=== PATIENT | female | born 1935 | race Caucasian/White ===

== ENCOUNTER 2017-07-06 09:08 | Emergency (ER) | payer MEDICARE, OTHER ==
--- NOTE | 2017-07-06 09:58 | ERPHSYRPT ---
- History of Present Illness Time Seen by Provider: 07/06/17 09:45 Source: patient, family Exam Limitations: no limitations Patient Subjective Stated Complaint: rash and itching to upper back for one week Triage Nursing Assessment: ambulated to room per self. skin w/d, color normal, resp easy. fine red rash noted to upper back. no open areas Physician History: This is a 81-year-old white female she arrives with complaint of a rash to her neck and upper back mostly on the right side which she states is pruritic and tender symptoms have been going on for a week. The patient's has been placing [id number] hydrocortisone cream and yesterday placed triple antibiotic cream to the area. patient has not had any fevers. Patient is allergic to Benadryl. Past medical history includes arthritis, osteoporosis, GERD. Past surgical history includes appendectomy cholecystectomy Timing/Duration: week(s) (1 week) Severity: moderate Modifying Factors: Improves With: other ( placing triple antibiotic ointment and [id number] hydrocortisone to the area) Associated Symptoms: rash (rash upper back and neck mostly right side for one week), No nausea, No vomiting, No abdominal pain, No shortness of breath, No heartburn, No diaphoresis, No cough, No chills, No chest pain, No fever, No headaches, No loss of appetite, No malaise, No syncope, No seizure, No weakness Allergies/Adverse Reactions: diphenhydramine HCl [From Benadryl] Allergy (Mild, Verified 07/06/17 09:26) Home Medications: Alendronate Sodium 70 mg [Fosamax 70 MG] 70 mg PO WEEKLY 03/08/12 [History ] Aspirin EC 81 mg [Ecotrin 81 mg] 81 mg PO DAILY 03/08/12 [History] Calcium Carbonate/Vitamin D3 [Calcium 600 + Vit D Caplet] 1 tab PO BID 03/08/12 [History] Cholecalciferol (Vitamin D3) [Vitamin D] 1 tab PO BID 12/22/14 [History] Simvastatin 40 mg [Zocor 40 mg] 40 mg PO DAILY 12/22/14 [History] Hx Tetanus, Diphtheria Vaccination/Date Given: No Hx Influenza Vaccination/Date Given: Yes Hx Pneumococcal Vaccination/Date Given: No Immunizations Up to Date: No - Review of Systems Constitutional: No Fever, No Chills Eyes: No Symptoms Ears, Nose, & Throat: No Symptoms Respiratory: No Cough, No Dyspnea Cardiac: No Chest Pain, No Edema, No Syncope Abdominal/Gastrointestinal: No Abdominal Pain, No Nausea, No Vomiting, No Diarrhea Genitourinary Symptoms: No Dysuria Musculoskeletal: No Back Pain, No Neck Pain Skin: Pruritis, Rash, Other (puritic rash upper back and neck mostly right sided times one week) Neurological: No Dizziness, No Focal Weakness, No Sensory Changes Psychological: No Symptoms Endocrine: No Symptoms All Other Systems: Reviewed and Negative - Past Medical History Pertinent Past Medical History: Yes Neurological History: No Pertinent History ENT History: No Pertinent History Cardiac History: No Pertinent History Respiratory History: No Pertinent History Endocrine Medical History: No Pertinent History Musculoskeletal History: Arthritis, Osteoporosis GI Medical History: GERD History: No Pertinent History Psycho-Social History: No Pertinent History Female Reproductive Disorders: No Pertinent History - Past Surgical History Past Surgical History: Yes Neuro Surgical History: No Pertinent History Cardiac: No Pertinent History Respiratory: No Pertinent History Gastrointestinal: Appendectomy, Cholecystectomy Musculoskeletal: No Pertinent History Female Surgical History: Hysterectomy - Social History Smoking Status: Never smoker Exposure to second hand smoke: No Drug Use: none Patient Lives Alone: No - Female History Hx Now: No - Nursing Vital Signs Nursing Vital Signs: Initial Vital Signs Temperature 98 F 07/06/17 09:17 Pulse Rate 97 H 07/06/17 09:17 Respiratory Rate 16 07/06/17 09:17 Blood Pressure 122/82 07/06/17 09:17 O2 Sat by Pulse Oximetry 97 07/06/17 09:17 Pain Scale Pain Intensity 0 - Physical Exam General Appearance: no apparent distress, alert Eye Exam: PERRL/EOMI, eyes nml inspection Ears, Nose, Throat Exam: normal ENT inspection, TMs normal, pharynx normal, moist mucous membranes Neck Exam: normal inspection, non-tender, supple, full range of motion Respiratory Exam: normal breath sounds, lungs clear, No respiratory distress Cardiovascular Exam: regular rate/rhythm, normal heart sounds, normal peripheral pulses Gastrointestinal/Abdomen Exam: soft, normal bowel sounds, No tenderness, No mass Back Exam: normal inspection, normal range of motion, No CVA tenderness, No vertebral tenderness Extremity Exam: normal inspection, normal range of motion, pelvis stable Neurologic Exam: alert, oriented x 3, cooperative, normal mood/affect, nml cerebellar function, nml station & gait, sensation nml, No motor deficits Skin Exam: rash (erythematous rash right side upper thoracic region and neck, erythematous with several areas of increased erythema not hot) SpO2 Interpretation: normal (97%) SpO2: 97 Oxygen Delivery: Room Air - Course Nursing assessment & vital signs reviewed: Yes - Progress Progress: improved Progress Note: 07/06/17 09:56 This is a 81-year-old white female who arrives with complaints of an erythematous rash along her right posterior neck and right upper thoracic region symptoms for one week patient's has been placing hydrocortisone cream to the area as well as Yesterday placed Neosporin ointment to the area. Patient's rash is quite suspicious for shingles. Will go ahead and place patient on acyclovir 800 mg 5 times a day for 7 days. Will write for Atarax 25 mg orally 3 times a day as needed for itching. Patient will need to follow-up with her family physician. - Departure Time of Disposition: 09:58 Departure Disposition: Home Clinical Impression: Rash Herpes zoster Qualifiers: Herpes zoster complications: without complications Qualified Code(s): B02.9 - Zoster without complications Condition: Fair Critical Care Time: No Referrals: YARED JAMES [Primary Care Provider] - Additional Instructions: Return home. Acyclovir 800 mg 5 times a day for 7 days. Atarax 25 mg orally 3 times a day as needed for itching. Follow-up with your family doctor call Saturday for appointment sooner if problems. Return for acute distress or for severe symptoms. Prescriptions: Acyclovir 800 mg [Zovirax 800 mg] 800 mg PO 5XD #35 tablet Hydroxyzine HCl 25 mg [Atarax 25 mg] 25 mg PO TID PRN #20 tablet
[2017-07-06 10:17] VITALS: BP 130/81; PULSE 92; O2SAT 98
== END 2017-07-06 10:17 | disposition home or self-care (01) ==
LOC: ED 09:08
DX: R21 Rash and other nonspecific skin eruption (principal); B02.9 Zoster without complications; Z79.899 Other long term (current) drug therapy
CPT/HCPCS: 99283

== ENCOUNTER 2017-08-24 07:25 | Emergency (ER) | payer MEDICARE, OTHER ==
[2012-03-08 10:59] VITALS: BP 136/78
[2017-08-24] MEDS ORDERED: Hydromorphone 1 mg/ml Ampule IM ONE ×2 (07:52→08:49)
[2017-08-24] MEDS ORDERED: Phenergan 25 MG INJ IM ONE (07:52)
--- NOTE | 2017-08-24 07:57 | ERPHSYRPT ---
- History of Present Illness Time Seen by Provider: 08/24/17 07:42 Source: patient, family () Exam Limitations: no limitations Patient Subjective Stated Complaint: Pt states "My back has been hurting for about 3 days and I just cannot take it anymore. I am on medicine for a urinary thing and I think that is cleared up but it just hurts." Triage Nursing Assessment: Pt alert and oriented X 3, skin pwd. Pt ambulates with a shuffleing gait, able to speak in clear full sentences. Pt moans and grunts when she moves. Physician History: FIVE DAYS AGO PT STARTED WITH DYSURIA AND HAS BEEN TAKING SULFA FOR THE PAST 3 DAYS. FOR THE PAST 2 DAYS PT HAS HAD LOW BACK PAIN RADIATING TO THE LEFT HIP WORSE WITH MOVEMENT AND WITHOUT RECENT INJURY. PT DENIES FEVER, NAUSEA, VOMITING , ABDOMINAL PAIN, NUMBNESS, WEAKNESS. Allergies/Adverse Reactions: diphenhydramine HCl [From Benadryl] Allergy (Mild, Verified 07/06/17 09:26) Home Medications: Alendronate Sodium 70 mg [Fosamax 70 MG] 70 mg PO WEEKLY 03/08/12 [History ] Aspirin EC 81 mg [Ecotrin 81 mg] 81 mg PO DAILY 03/08/12 [History] Calcium Carbonate/Vitamin D3 [Calcium 600 + Vit D Caplet] 1 tab PO BID 03/08/12 [History] Cholecalciferol (Vitamin D3) [Vitamin D] 1 tab PO BID 12/22/14 [History] Simvastatin 40 mg [Zocor 40 mg] 40 mg PO DAILY 12/22/14 [History] Hx Tetanus, Diphtheria Vaccination/Date Given: No Hx Influenza Vaccination/Date Given: Yes Hx Pneumococcal Vaccination/Date Given: Yes Immunizations Up to Date: Yes - Review of Systems Constitutional: No Fever, No Chills Respiratory: No Dyspnea Cardiac: No Chest Pain Abdominal/Gastrointestinal: No Abdominal Pain, No Nausea, No Vomiting Genitourinary Symptoms: Dysuria Musculoskeletal: Back Pain (LOW), Joint Pain (LEFT HIP) Neurological: No Focal Weakness, No Sensory Changes All Other Systems: Reviewed and Negative - Past Medical History Pertinent Past Medical History: Yes Neurological History: No Pertinent History ENT History: No Pertinent History Cardiac History: No Pertinent History Respiratory History: No Pertinent History Endocrine Medical History: No Pertinent History Musculoskeletal History: Arthritis, Osteoporosis GI Medical History: GERD History: No Pertinent History Psycho-Social History: No Pertinent History Female Reproductive Disorders: No Pertinent History - Past Surgical History Past Surgical History: Yes Neuro Surgical History: No Pertinent History Cardiac: No Pertinent History Respiratory: No Pertinent History Gastrointestinal: Appendectomy, Cholecystectomy Musculoskeletal: No Pertinent History Female Surgical History: Hysterectomy - Social History Smoking Status: Never smoker Exposure to second hand smoke: No Drug Use: none Patient Lives Alone: No - Nursing Vital Signs Nursing Vital Signs: Initial Vital Signs Temperature 98.0 F 08/24/17 07:28 Pulse Rate 94 H 08/24/17 07:28 Respiratory Rate 18 08/24/17 07:28 Blood Pressure 163/104 08/24/17 07:28 O2 Sat by Pulse Oximetry 95 08/24/17 07:28 Pain Scale Pain Intensity [Lower Back] 9 Pain Intensity 4 - Physical Exam General Appearance: alert Eye Exam: PERRL/EOMI Ears, Nose, Throat Exam: TMs normal, pharynx normal, moist mucous membranes Neck Exam: normal inspection Respiratory Exam: lungs clear Cardiovascular Exam: normal heart sounds Gastrointestinal/Abdomen Exam: soft, normal bowel sounds Back Exam: decreased range of motion, No vertebral tenderness Extremity Exam: normal inspection, normal range of motion, No pedal edema Neurologic Exam: alert, cooperative, sensation nml, No motor deficits, No motor weakness Skin Exam: warm, dry SpO2 Interpretation: normal SpO2: 95 Oxygen Delivery: Room Air - Course Nursing assessment & vital signs reviewed: Yes - Radiology Exams Left Femur X-ray Interpretation: Teleradiologist Report, No Fracture Pelvis X-ray Interpretation: Teleradiologist Report, No Fracture L-Spine X-ray Interpretation: Teleradiologist Report (NO ACUTE LUMBAR FX) Ordered Tests: Active Orders 24 hr Category Date Time Status FEMUR Stat Exams 08/24/17 07:57 Taken LUMBAR COMPLETE (MIN 4 VIEWS) Stat Exams 08/24/17 07:53 Taken PELVIS (1 OR 2 VIEWS) Stat Exams 08/24/17 07:57 Taken CULTURE,URINE Stat Lab 08/24/17 09:00 Received UA W/ MICROSCOPIC Stat Lab 08/24/17 09:00 Completed Medication Summary Generic Name Dose Route Start Last Admin Trade Name Freq PRN Reason Stop Dose Admin Ciprofloxacin 500 mg 08/24/17 10:00 Cipro 500 Mg PO 09/23/17 09:59 BID CARLEY Discontinued Medications Generic Name Dose Route Start Last Admin Trade Name Eliseo PRN Reason Stop Dose Admin Hydrocodone Bitart/Acetaminophen 2 tab 08/24/17 09:56 [place] 5/325 Mg PO 08/24/17 09:57 SENT HOME W/ PATIENT ONE Hydromorphone HCl 1 mg 08/24/17 07:52 08/24/17 08:00 Hydromorphone 1 Mg/Ml Ampule IM 08/24/17 07:53 1 mg STAT ONE Administration Hydromorphone HCl Confirm 08/24/17 07:58 Dilaudid 2 Mg Injection Administered 08/24/17 07:59 Dose 2 mg .ROUTE .STK-MED ONE Hydromorphone HCl 1 mg 08/24/17 08:49 08/24/17 09:02 Hydromorphone 1 Mg/Ml Ampule IM 08/24/17 08:50 1 mg STAT ONE Administration Hydromorphone HCl Confirm 08/24/17 08:58 Dilaudid 2 Mg Injection Administered 08/24/17 08:59 Dose 2 mg .ROUTE .STK-MED ONE Promethazine HCl 25 mg 08/24/17 07:52 08/24/17 08:00 Phenergan 25 Mg Inj IM 08/24/17 07:53 25 mg STAT ONE Administration Promethazine HCl Confirm 08/24/17 07:58 Phenergan 25 Mg Inj Administered 08/24/17 07:59 Dose 25 mg .ROUTE .STK-MED ONE Lab/Rad Data: Laboratory Results 08/24/17 Range/Units 09:00 Ur Collection Type CLEAN CATCH Urine Color YELLOW (YELLOW) Urine Appearance HAZY (CLEAR) Urine pH 6.0 (5-6) Ur Specific [place] 1.015 (1.005-1.025) Urine Protein NEGATIVE (Negative) Urine Ketones NEGATIVE (NEGATIVE) Urine Blood NEGATIVE (0-5) [place]/ul Urine Nitrite POSITIVE (NEGATIVE) Urine Bilirubin NEGATIVE (NEGATIVE) Urine Urobilinogen NORMAL (0-1) mg/dL Ur Leukocyte Esterase 2+ (NEGATIVE) Urine Microscopic WBC 5-10 (0-5) /HPF Ur Epithelial Cells FEW (FEW) /HPF Urine Bacteria MANY (NEGATIVE) /HPF Urine Mucus SLIGHT (NEGATIVE) /HPF Urine Culture Reflexed YES (NO) Urine Glucose NEGATIVE (NEGATIVE) mg/dL Specimen Received 08-24-17 0900 - Departure Time of Disposition: 10:03 Departure Disposition: Home Clinical Impression: SCIATICA OF LEFT SIDE, UTI Condition: Stable Critical Care Time: No Referrals: YARED JAMES [Primary Care Provider] - Instructions: Sciatica (DC), Urinary Tract Infections in Adults Additional Instructions: FOLLOW UP WITH PRIVATE DOCTOR TOMORROW. STOP SULFA. Prescriptions: Ciprofloxacin [Cipro 500 MG] 500 mg PO BID #20 tablet
[2017-08-24] MEDS ORDERED: DILAUDID 2 MG INJECTION ONE ×2 (07:58→08:58)
[2017-08-24] MEDS ORDERED: Phenergan 25 MG INJ ONE (07:58)
[2017-08-24 09:20] LABS: Appearance HAZY (CLEAR); Bilirubin NEGATIVE (NEGATIVE); Blood NEGATIVE Ery/ul (0-5); Glucose NEGATIVE (NEGATIVE); Ketones NEGATIVE (NEGATIVE); Leukocyte Esterase 2+ (NEGATIVE); Nitrite POSITIVE (NEGATIVE); Protein,Urine Dip NEGATIVE (Negative); Specific Gravity 1.015 (1.005-1.025); Urobilinogen NORMAL mg/dL (0-1)
[2017-08-24 09:24] LABS: Bacteria MANY /HPF (NEGATIVE); Epithelial Cells FEW /HPF (FEW); Mucus SLIGHT /HPF (NEGATIVE)
[2017-08-24] MEDS ORDERED: NORCO 5/325 MG PO ONE (09:56)
[2017-08-24] MEDS ORDERED: Cipro 500 MG PO SCH (10:00)
[2017-08-24] MEDS ORDERED: NORCO 5/325 MG ONE (10:01)
[2017-08-24] MEDS ORDERED: Cipro 500 MG ONE (10:01)
[2017-08-24 10:20] VITALS: BP 128/70; PULSE 82; O2SAT 98
--- NOTE | 2017-08-24 10:29 | XRAY ---
Indication: Pain 6 days. No known injury. Comparison: April 09, 2008. 5 views of the lumbar spine again demonstrates osteopenia and minimal L5-S1 disc space narrowing with interval worsening bilateral L4-S1 degenerative facet arthropathy. New 10 mm L5 anterolisthesis on S1 and interval T8/T9 kyphoplasty. New superior T12 endplate deformity with less than 20% height loss of uncertain chronicity. Again mild degenerative changes of both hips. Progressive worsening moderate aortoiliac calcifications. Mild scattered colonic fecal debris and previous cholecystectomy. Impression: 1. 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 2. Progressive worsening L4-S1 degenerative facet arthropathy with new grade 1-2 L5 spondylolisthesis. 3. Interval T8/T9 kyphoplasty. 4. Stable osteopenia and L5-S1 disc space narrowing. Comment: Preliminary interpretation was made by [facility]. No critical discrepancy.
--- NOTE | 2017-08-24 10:33 | XRAY ---
Indication: Pain 6 days. No known injury. Comparison: May 31, 2015. Single AP pelvis again demonstrates osteopenia, left pelvic surgical clip, and degenerative changes of both hips and visualized lower lumbar spine. New left gluteal calcified injection granuloma. No acute findings. Comment: Preliminary interpretation was made by [facility]. No discrepancy.
--- NOTE | 2017-08-24 10:35 | XRAY ---
Indication: Pain. No known injury. Comparison: None 2 views of the left femur demonstrates mild osteopenia and degenerative changes of the knee, both hips, and visualized lower lumbar spine. No other bony, articular, or soft tissue abnormalities. Comment: Preliminary interpretation was made by [facility]. No discrepancy.
== END 2017-08-24 10:20 | disposition home or self-care (01) ==
LOC: ED 07:25
DX: M54.42 Lumbago with sciatica, left side (principal); N39.0 Urinary tract infection, site not specified
CPT/HCPCS: 72110; 72170; 73552; 81000; 87077; 87086; 87186; 96372; 99283; J1170; J2550; A9270-GY

== ENCOUNTER 2017-08-25 07:11 | Emergency (ER) | payer MEDICARE, OTHER ==
[2012-03-08 10:59] VITALS: BP 136/78
[2017-08-25 07:28] VITALS: BP 163/90; PULSE 105; O2SAT 95
--- NOTE | 2017-08-25 07:34 | ERPHSYRPT ---
- History of Present Illness Time Seen by Provider: 08/25/17 07:34 Source: patient Patient Subjective Stated Complaint: pt reports back pain radiating to legs- tingling bilateral legs-denies injury Triage Nursing Assessment: pt presents to ed pink warm and bzh-[id number] bruising or contusions noted-pt able to bear wt-grimacing and distress with positioning-resp easy and nonlabored Physician History: 81-year-old female came to the emergency room with complaining of lower back pain radiating to the both lower legs with tingling and numbness in the both lower extremities. Patient was seen in the emergency room yesterday. X-rays were done beech reviewed by radiologist as negative. Patient states that injections did help her and she was given 2 [place], which she to contact every 6 hours, which helped worse till 5:00 today morning, but then her pain came back. Quality: sharp Back Pain Location: lumbar spine Back Pain Radiation: lower legs Severity of Pain-Max: moderate Severity of Pain-Current: severe Modifying Factors: Improves With: pain medication Associated Symptoms: tingling in legs/feet Allergies/Adverse Reactions: diphenhydramine HCl [From Benadryl] Allergy (Mild, Verified 08/25/17 07:28) Home Medications: Alendronate Sodium 70 mg [Fosamax 70 MG] 70 mg PO WEEKLY 03/08/12 [History ] Aspirin EC 81 mg [Ecotrin 81 mg] 81 mg PO DAILY 03/08/12 [History] Calcium Carbonate/Vitamin D3 [Calcium 600 + Vit D Caplet] 1 tab PO BID 03/08/12 [History] Cholecalciferol (Vitamin D3) [Vitamin D] 1 tab PO BID 12/22/14 [History] Simvastatin 40 mg [Zocor 40 mg] 40 mg PO DAILY 12/22/14 [History] Hx Tetanus, Diphtheria Vaccination/Date Given: No Hx Influenza Vaccination/Date Given: Yes Hx Pneumococcal Vaccination/Date Given: Yes Immunizations Up to Date: Yes - Review of Systems Constitutional: No Fever, No Chills Eyes: No Symptoms Ears, Nose, & Throat: No Symptoms Respiratory: No Cough, No Dyspnea Cardiac: No Chest Pain, No Edema, No Syncope Abdominal/Gastrointestinal: No Abdominal Pain, No Nausea, No Vomiting, No Diarrhea Genitourinary Symptoms: No Dysuria Musculoskeletal: Back Pain, No Neck Pain Skin: No Rash Neurological: No Dizziness, No Focal Weakness, No Sensory Changes Psychological: No Symptoms Endocrine: No Symptoms All Other Systems: Reviewed and Negative - Past Medical History Pertinent Past Medical History: Yes Neurological History: No Pertinent History ENT History: No Pertinent History Cardiac History: No Pertinent History Respiratory History: No Pertinent History Endocrine Medical History: No Pertinent History Musculoskeletal History: Arthritis, Osteoporosis GI Medical History: GERD History: No Pertinent History Psycho-Social History: No Pertinent History Female Reproductive Disorders: No Pertinent History - Past Surgical History Past Surgical History: Yes Neuro Surgical History: No Pertinent History Cardiac: No Pertinent History Respiratory: No Pertinent History Gastrointestinal: Appendectomy, Cholecystectomy Musculoskeletal: No Pertinent History Female Surgical History: Hysterectomy - Social History Smoking Status: Never smoker Exposure to second hand smoke: No Drug Use: none Patient Lives Alone: No - Female History Hx Now: No - Nursing Vital Signs Nursing Vital Signs: Initial Vital Signs Temperature 98.0 F 08/25/17 07:23 Pulse Rate 105 H 08/25/17 07:23 Respiratory Rate 18 08/25/17 07:23 Blood Pressure 163/90 08/25/17 07:23 O2 Sat by Pulse Oximetry 95 08/25/17 07:23 Pain Scale Pain Intensity 9 - Physical Exam General Appearance: no apparent distress, alert Eye Exam: PERRL/EOMI, eyes nml inspection Neck Exam: normal inspection, non-tender, supple, full range of motion, No meningismus, No midline tenderness Respiratory Exam: normal breath sounds, lungs clear, No respiratory distress Cardiovascular Exam: regular rate/rhythm, normal heart sounds Gastrointestinal Exam: soft, No tenderness, No mass Extremity Exam: normal inspection, normal range of motion, No calf tenderness, No pedal edema Neurologic Exam: alert, oriented x 3, cooperative, corporate job titles II-XII nml as tested, normal mood/affect, nml cerebellar function, sensation nml, No motor deficits, No sensory deficit Skin Exam: normal color, warm, dry, No rash SpO2: 95 Oxygen Delivery: Room Air - Course Nursing assessment & vital signs reviewed: Yes - Progress Progress: improved, pain not gone completely Counseled pt/family regarding: diagnosis, need for follow-up - Departure Time of Disposition: 07:46 Departure Disposition: Home Clinical Impression: Sciatica neuralgia Qualifiers: Laterality: bilateral Qualified Code(s): M54.31 - Sciatica, right side; M54.32 - Sciatica, left side; M54.32 - Sciatica, left side Condition: Stable Critical Care Time: No Referrals: YARED JAMES [Primary Care Provider] - Instructions: Sciatica (DC), Low Back Pain (DC) Additional Instructions: BACK INJURY 1. May apply moist heat frequently for relief of pain. Take care not to burn the skin. Do not use heat for more than 30 minutes at a time. 2. Try to sleep on a firm bed, flat on your back. 3. If no improvement is noticed in 2-3 days, follow up with your family physician. 4. If you notice any numbness, tingling, weakness, or problems with your bowel or bladder, you should call your family physician or return to the emergency department. Prescriptions: Indomethacin 25 mg [Indocin 25 MG] 25 mg PO TID #15 capsule Hydrocodone Bit/Acetaminophen [[place] 5-325 Tablet] 1 each PO Q6H PRN PRN #15 tablet MDD 4 PRN Reason: Pain
[2017-08-25] MEDS ORDERED: Norflex 60 MG/2 ML IM ONE (07:51)
[2017-08-25] MEDS ORDERED: TORAdol 30 mg Injection IM ONE (07:51)
[2017-08-25] MEDS ORDERED: TORAdol 30 mg Injection ONE (07:54)
[2017-08-25] MEDS ORDERED: Norflex 60 MG/2 ML ONE (07:55)
== END 2017-08-25 08:28 | disposition home or self-care (01) ==
LOC: ED 07:11
DX: M54.42 Lumbago with sciatica, left side (principal); M54.41 Lumbago with sciatica, right side; Z79.899 Other long term (current) drug therapy; Z79.82 Long term (current) use of aspirin
CPT/HCPCS: 96372; 99284; J1885; J2360

== ENCOUNTER 2017-08-25 21:43 | Observation (INO) | payer MEDICARE, OTHER ==
[2017-08-25] MEDS ORDERED: Sodium Chloride 0.9% 1000 ML 1,000 ML IV STA (21:58)
[2017-08-25] MEDS ORDERED: Phenergan 25 MG INJ IV ONE (21:58)
[2017-08-25] MEDS ORDERED: Hydromorphone 1 mg/ml Ampule IV ONE (21:58)
--- NOTE | 2017-08-25 22:06 | ERPHSYRPT ---
- History of Present Illness Time Seen by Provider: 08/25/17 21:50 Source: patient Exam Limitations: no limitations Physician History: FOR THE PAST 5 DAYS PT HAS HAD SEVERE LOW BACK PAIN TODAY RADIATING TO BOTH FEET WITH VOMITING X2 WITHOUT BLOOD. LAST BM WAS 2 DAYS AGO. PT DENIES CHEST PAIN, ABDOMINAL PAIN, FEVER. PT CAME TO [facility] YESTERDAY FOR THE LOW BACK PAIN , WAS GIVEN IM PAIN MEDICATION, DIAGNOSED WITH A UTI AND RX'ED CIPRO. PT RETURNED TO [facility] THIS MORNING AND WAS GIVEN AN RX FOR NORCO. Allergies/Adverse Reactions: diphenhydramine HCl [From Benadryl] Allergy (Mild, Verified 08/25/17 07:28) Home Medications: Alendronate Sodium 70 mg [Fosamax 70 MG] 70 mg PO WEEKLY 03/08/12 [History ] Aspirin EC 81 mg [Ecotrin 81 mg] 81 mg PO DAILY 03/08/12 [History] Calcium Carbonate/Vitamin D3 [Calcium 600 + Vit D Caplet] 1 tab PO BID 03/08/12 [History] Cholecalciferol (Vitamin D3) [Vitamin D] 1 tab PO BID 12/22/14 [History] Simvastatin 40 mg [Zocor 40 mg] 40 mg PO DAILY 12/22/14 [History] Hx Tetanus, Diphtheria Vaccination/Date Given: No Hx Influenza Vaccination/Date Given: Yes Hx Pneumococcal Vaccination/Date Given: Yes - Review of Systems Abdominal/Gastrointestinal: Vomiting Musculoskeletal: Back Pain (LOW) All Other Systems: Reviewed and Negative - Past Medical History Pertinent Past Medical History: Yes Neurological History: No Pertinent History ENT History: No Pertinent History Cardiac History: No Pertinent History Respiratory History: No Pertinent History Endocrine Medical History: No Pertinent History Musculoskeletal History: Arthritis, Osteoporosis GI Medical History: GERD History: No Pertinent History Psycho-Social History: No Pertinent History Female Reproductive Disorders: No Pertinent History - Past Surgical History Past Surgical History: Yes Neuro Surgical History: No Pertinent History Cardiac: No Pertinent History Respiratory: No Pertinent History Gastrointestinal: Appendectomy, Cholecystectomy Musculoskeletal: No Pertinent History Female Surgical History: Hysterectomy - Social History Smoking Status: Never smoker Exposure to second hand smoke: No Drug Use: none Patient Lives Alone: No - Nursing Vital Signs Nursing Vital Signs: Initial Vital Signs Temperature 99.2 F 04/01/18 21:50 Pulse Rate 97 H 08/25/17 21:50 Blood Pressure 152/116 08/25/17 21:50 O2 Sat by Pulse Oximetry 97 08/25/17 21:50 Pain Scale Pain Intensity [] 10 Pain Intensity 0 - Physical Exam General Appearance: alert Eye Exam: PERRL/EOMI Ears, Nose, Throat Exam: TMs normal, pharynx normal, moist mucous membranes Neck Exam: normal inspection Respiratory Exam: lungs clear Cardiovascular Exam: normal heart sounds Gastrointestinal/Abdomen Exam: soft, normal bowel sounds Back Exam: decreased range of motion, No vertebral tenderness Extremity Exam: normal inspection, normal range of motion, No pedal edema Neurologic Exam: alert, cooperative, sensation nml, No motor deficits, No motor weakness Skin Exam: warm, dry - Course Nursing assessment & vital signs reviewed: Yes - CT Exams Lumbar Spine CT Interpretation: Tele-radiologist Report (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 AGE- INDETERMINATE T12 MILD INSUFFICIENCY FRACTURE.) Ordered Tests: Active Orders 24 hr Category Date Time Status IV Insertion STAT Care 08/25/17 21:58 Active Oxygen-ED Only NASAL CANNULA 4 lpm Care 08/25/17 22:42 Active LUMBAR SPINE W/O [CT] Stat Exams 08/25/17 21:57 Taken AMYLASE Stat Lab 08/25/17 22:15 Completed CBC W DIFF Stat Lab 08/25/17 22:15 Completed CMP Stat Lab 08/25/17 22:15 Completed CULTURE,URINE Stat Lab 08/25/17 22:25 Received LIPASE Stat Lab 08/25/17 22:15 Completed MAG [MAGNESIUM] Stat Lab 08/25/17 22:15 Completed UA W/ MICROSCOPIC Stat Lab 08/25/17 22:25 Completed Medication Summary Discontinued Medications Generic Name Dose Route Start Last Admin Trade Name Freq PRN Reason Stop Dose Admin Hydromorphone HCl 1 mg 08/25/17 21:58 08/25/17 22:31 Hydromorphone 1 Mg/Ml Ampule IV 08/25/17 21:59 1 mg STAT ONE Administration Hydromorphone HCl Confirm 08/25/17 22:16 Dilaudid 2 Mg Injection Administered 08/25/17 22:17 Dose 2 mg .ROUTE .STK-MED ONE Hydromorphone HCl 1 mg 08/26/17 00:05 04/02/18 00:21 Hydromorphone 1 Mg/Ml Ampule IV 08/26/17 00:06 1 mg STAT ONE Administration Hydromorphone HCl Confirm 08/26/17 00:19 Dilaudid 2 Mg Injection Administered 08/26/17 00:20 Dose 2 mg .ROUTE .STK-MED ONE Sodium Chloride 1,000 mls @ 999 mls/hr 08/25/17 21:58 08/25/17 22:32 Sodium Chloride 0.9% 1000 Ml IV 08/25/17 22:58 999 mls/hr .Q1H1M STA Administration Sodium Chloride Confirm 08/25/17 22:16 Sodium Chloride 0.9% 1000 Ml Administered 08/25/17 22:17 Dose 1,000 mls @ ud .ROUTE .STK-MED ONE Promethazine HCl 12.5 mg 08/25/17 21:58 08/25/17 22:31 Phenergan 25 Mg Inj IV 08/25/17 21:59 12.5 mg STAT ONE Administration Promethazine HCl Confirm 08/25/17 22:15 Phenergan 25 Mg Inj Administered 08/25/17 22:16 Dose 25 mg .ROUTE .STK-MED ONE Lab/Rad Data: Laboratory Result Diagrams 08/25/17 22:15 08/25/17 22:15 Laboratory Results 08/25/17 08/25/17 08/25/17 Range/Units 22:25 22:15 22:15 WBC (4.0-10.5) K/mm3 RBC (4.1-5.4) M/mm3 Hgb (12.0-16.0) gm/dl Hct (35-47) % MCV (78-100) fl MCH (26-32) pg MCHC (32-36) g/dl RDW (11.5-14.0) % Plt Count (150-450) K/mm3 MPV (6-9.5) fl Gran % (36.0-66.0) % Eos # (Auto) (0-0.5) Absolute Lymphs (auto) (1.0-4.6) Absolute Monos (auto) (0.0-1.3) Lymphocytes % (24.0-44.0) % Monocytes % (0.0-12.0) % Eosinophils % (0.00-5.0) % Basophils % (0.0-0.4) % Absolute Granulocytes (1.4-6.9) Basophils # (0-0.4) Sodium 132 L (137-145) mmol/L Potassium 4.0 (3.5-5.1) mmol/L Chloride 96 L (98-107) mmol/L Carbon Dioxide 27 (22-30) mmol/L Anion Gap 13.2 (5-15) MEQ/L BUN 16 (7-17) mg/dL Creatinine 0.83 (0.52-1.04) mg/dL Estimated GFR > 60 ML/MIN Glucose 139 H (74-106) mg/dL Calcium 9.9 (8.4-10.2) mg/dL Magnesium 1.8 (1.6-2.3) mg/dL Total Bilirubin 1.20 (0.2-1.3) mg/dL AST 25 (14-36) U/L ALT 14 (0-35) U/L Alkaline Phosphatase 68 (38-126) U/L Serum Total Protein 7.5 (6.3-8.2) g/dL Albumin 4.2 (3.5-5.0) g/dL Amylase 139 H (30-110) U/L Lipase 84 (23-300) U/L Ur Collection Type CATH Urine Color YELLOW (YELLOW) Urine Appearance CLEAR (CLEAR) Urine pH 6.0 (5-6) Ur Specific [place] 1.015 (1.005-1.025) Urine Protein NEGATIVE (Negative) Urine Ketones SMALL (NEGATIVE) Urine Blood 250 (0-5) [place]/ul Urine Nitrite NEGATIVE (NEGATIVE) Urine Bilirubin NEGATIVE (NEGATIVE) Urine Urobilinogen NORMAL (0-1) mg/dL Ur Leukocyte Esterase 1+ (NEGATIVE) Urine Microscopic RBC 10-15 (0-2) /HPF Urine Microscopic WBC 25-50 (0-5) /HPF Ur Epithelial Cells FEW (FEW) /HPF Urine Bacteria FEW (NEGATIVE) /HPF Urine Culture Reflexed YES (NO) Urine Glucose NEGATIVE (NEGATIVE) mg/dL Specimen Received 08/25/17 2225 08/25/17 Range/Units 22:15 WBC 10.9 H (4.0-10.5) K/mm3 RBC 4.56 (4.1-5.4) M/mm3 Hgb 14.2 (12.0-16.0) gm/dl Hct 41.4 (35-47) % MCV 90.8 (78-100) fl MCH 31.1 (26-32) pg MCHC 34.3 (32-36) g/dl RDW 12.7 (11.5-14.0) % Plt Count 241 (150-450) K/mm3 MPV 10.9 H (6-9.5) fl Gran % 83.3 H (36.0-66.0) % Eos # (Auto) 0.03 (0-0.5) Absolute Lymphs (auto) 0.84 L (1.0-4.6) Absolute Monos (auto) 0.94 (0.0-1.3) Lymphocytes % 7.7 L (24.0-44.0) % Monocytes % 8.6 (0.0-12.0) % Eosinophils % 0.3 (0.00-5.0) % Basophils % 0.1 (0.0-0.4) % Absolute Granulocytes 9.11 H (1.4-6.9) Basophils # 0.01 (0-0.4) Sodium (137-145) mmol/L Potassium (3.5-5.1) mmol/L Chloride (98-107) mmol/L Carbon Dioxide (22-30) mmol/L Anion Gap (5-15) MEQ/L BUN (7-17) mg/dL Creatinine (0.52-1.04) mg/dL Estimated GFR ML/MIN Glucose (74-106) mg/dL Calcium (8.4-10.2) mg/dL Magnesium (1.6-2.3) mg/dL Total Bilirubin (0.2-1.3) mg/dL AST (14-36) U/L ALT (0-35) U/L Alkaline Phosphatase (38-126) U/L Serum Total Protein (6.3-8.2) g/dL Albumin (3.5-5.0) g/dL Amylase (30-110) U/L Lipase (23-300) U/L Ur Collection Type Urine Color (YELLOW) Urine Appearance (CLEAR) Urine pH (5-6) Ur Specific [place] (1.005-1.025) Urine Protein (Negative) Urine Ketones (NEGATIVE) Urine Blood (0-5) [place]/ul Urine Nitrite (NEGATIVE) Urine Bilirubin (NEGATIVE) Urine Urobilinogen (0-1) mg/dL Ur Leukocyte Esterase (NEGATIVE) Urine Microscopic RBC (0-2) /HPF Urine Microscopic WBC (0-5) /HPF Ur Epithelial Cells (FEW) /HPF Urine Bacteria (NEGATIVE) /HPF Urine Culture Reflexed (NO) Urine Glucose (NEGATIVE) mg/dL Specimen Received - Progress Discussed with : Jason (OBS - [id number]) - Departure Time of Disposition: 00:26 Departure Disposition: Observation Clinical Impression: LOW BACK PAIN, UTI, ARTHRITIS, OSTEOPOROSIS, GERD Condition: Stable Critical Care Time: No Referrals: YARED JAMES [Primary Care Provider] -
[2017-08-25] MEDS ORDERED: Phenergan 25 MG INJ ONE (22:15)
[2017-08-25] MEDS ORDERED: DILAUDID 2 MG INJECTION ONE (22:16)
[2017-08-25] MEDS ORDERED: Sodium Chloride 0.9% 1000 ML 1,000 ML ONE (22:16)
[2017-08-25 22:32] LABS: BASOPHIL % 0.1 % (0.0-0.4); Basophil (Absolute #) 0.01 (0-0.4); Eosinophil % 0.3 % (0.00-5.0); Eosinophil (Absolute #) 0.03 (0-0.5); Granulocyte Absolute (ANC) 9.11 (1.4-6.9); Granulocytes % 83.3 % (36.0-66.0); Hematocrit 41.4 % (35-47); Hemoglobin 14.2 gm/dl (12.0-16.0); Lymphocyte (Absolute #) 0.84 (1.0-4.6); Lymphocytes % 7.7 % (24.0-44.0); Mean Cell Volume 90.8 fl (78-100); Mean Corpuscular Hemoglobin 31.1 pg (26-32); Mean Corpuscular Hgb Concent. 34.3 g/dl (32-36); Mean Platelet Volume 10.9 fl (6-9.5); Monocyte (Absolute #) 0.94 (0.0-1.3); Monocytes % 8.6 % (0.0-12.0); Platelet Count 241 K/mm3 (150-450); Red Blood Count 4.56 M/mm3 (4.1-5.4); Red Cell Distribution Width 12.7 % (11.5-14.0); White Blood Count 10.9 K/mm3 (4.0-10.5)
[2017-08-25 22:51] LABS: ALBUMIN 4.2 g/dL (3.5-5.0); ALKALINE PHOSPHATASE 68 U/L (38-126); AMYLASE 139 U/L (30-110); ANION GAP 13.2 MEQ/L (5-15); BLOOD UREA NITROGEN 16 mg/dL (7-17); CHLORIDE 96 mmol/L (98-107); Calcium 9.9 mg/dL (8.4-10.2); Carbon Dioxide 27 mmol/L (22-30); Creatinine 1 0.83 mg/dL (0.52-1.04); Glucose 139 mg/dL (74-106); LIPASE 84 U/L (23-300); SGOT/AST 25 U/L (14-36); SGPT/ALT 14 U/L (0-35); SODIUM 132 mmol/L (137-145); Total Protein 7.5 g/dL (6.3-8.2)
[2017-08-25 22:58] LABS: Appearance CLEAR (CLEAR); Bilirubin NEGATIVE (NEGATIVE); Blood 250 Ery/ul (0-5); Glucose NEGATIVE (NEGATIVE); Ketones SMALL (NEGATIVE); Leukocyte Esterase 1+ (NEGATIVE); Nitrite NEGATIVE (NEGATIVE); Protein,Urine Dip NEGATIVE (Negative); Specific Gravity 1.015 (1.005-1.025); Urobilinogen NORMAL mg/dL (0-1)
[2017-08-25 22:59] LABS: Bacteria FEW /HPF (NEGATIVE); Epithelial Cells FEW /HPF (FEW); WBC 25-50 /HPF (0-5)
[2017-08-26] MEDS ORDERED: Hydromorphone 1 mg/ml Ampule IV ONE (00:05)
[2017-08-26] MEDS ORDERED: DILAUDID 2 MG INJECTION ONE (00:19)
[2017-08-26] MEDS ORDERED: DILAUDID 2 MG INJECTION IV PRN (01:02)
[2017-08-26] MEDS ORDERED: TYLENOL 325 MG PO PRN (01:02)
[2017-08-26] MEDS: Sodium Chloride 0.9% 1000 ML 1,000 ML IV SCH ×3 (02:20→22:38)
[2017-08-26 05:58] LABS: BASOPHIL % 0.1 % (0.0-0.4); Basophil (Absolute #) 0.01 (0-0.4); Eosinophil % 0.5 % (0.00-5.0); Eosinophil (Absolute #) 0.05 (0-0.5); Granulocyte Absolute (ANC) 7.57 (1.4-6.9); Granulocytes % 77.3 % (36.0-66.0); Hematocrit 41.7 % (35-47); Hemoglobin 13.9 gm/dl (12.0-16.0); Lymphocyte (Absolute #) 1.21 (1.0-4.6); Lymphocytes % 12.4 % (24.0-44.0); Mean Cell Volume 93.9 fl (78-100); Mean Corpuscular Hemoglobin 31.3 pg (26-32); Mean Corpuscular Hgb Concent. 33.3 g/dl (32-36); Mean Platelet Volume 10.9 fl (6-9.5); Monocyte (Absolute #) 0.95 (0.0-1.3); Monocytes % 9.7 % (0.0-12.0); Platelet Count 242 K/mm3 (150-450); Red Blood Count 4.44 M/mm3 (4.1-5.4); Red Cell Distribution Width 12.8 % (11.5-14.0); White Blood Count 9.8 K/mm3 (4.0-10.5)
[2017-08-26 06:23] LABS: ALBUMIN 3.9 g/dL (3.5-5.0); ALKALINE PHOSPHATASE 57 U/L (38-126); ANION GAP 12.7 MEQ/L (5-15); BLOOD UREA NITROGEN 13 mg/dL (7-17); CHLORIDE 100 mmol/L (98-107); Calcium 9.1 mg/dL (8.4-10.2); Carbon Dioxide 28 mmol/L (22-30); Creatinine 1 0.77 mg/dL (0.52-1.04); Glucose 106 mg/dL (74-106); SGOT/AST 25 U/L (14-36); SGPT/ALT 14 U/L (0-35); SODIUM 138 mmol/L (137-145); Total Protein 7.1 g/dL (6.3-8.2)
--- NOTE | 2017-08-26 08:50 | XRAY ---
Indication: Chronic back pain. Multiple contiguous axial images obtained through the lumbar spine. Sagittal and coronal reformatted images obtained. Comparison: Lumbar radiograph day earlier. Stable osteopenia and T12 superior endplate fracture deformity with less than 20% height loss of uncertain chronicity. Also stable bilateral L5 spondylolysis with grade 1 spondylolisthesis. Finding produces right foraminal stenosis and left foraminal narrowing. No large disc herniation or spinal canal stenosis. Disc spaces maintained. Visualized noncontrasted soft tissues again demonstrates moderate aortoiliac calcifications. Incidental sigmoid diverticulosis. Impression: 1. Stable T12 superior endplate fracture deformity of uncertain chronicity. 2. Stable osteopenia and bilateral L5 spondylolysis with grade 1 spondylolisthesis. 3. Incidental aortoiliac calcifications and sigmoid diverticulosis. Comment: Preliminary interpretation was made by [facility]. No critical discrepancy. CT DI 33.93
--- NOTE | 2017-08-26 08:51 | PCM.HP ---
History of Present Illness - Chief Complaint Chief Complaint: Lower back pain:UTI History of Present Illness: is a 81 year old female pt of mine from [facility] who complains of 1 week of lower back pain, bilat, approx L4-5. The pain was mild until 2d ago when it started worsening. She came to ER last night with 10/10 pain. Denies radiation or paresthesias. Denies urinary retention or loss of bowel control. She had been treated for UTI recently. UA today with 25-50 WBC and + blood. Sent for culture. Currently pain is 7-8/10. CT lumbar spine with L5 spondylolisthesis and spinal stenosis. Age- indeterminate fx but of T12. - Review of Systems Constitutional: No Fever Respiratory: Cough (x 2d, productive) Abdominal/Gastrointestinal: Abdominal Pain (this morning, lower abd), Vomiting ( x1 last night), Constipation (recently) Musculoskeletal: Back Pain Psychological: No Depression, No Suicidal Ideations All Other Systems: Reviewed and Negative Medications & Allergies Home Medications: Home Medication List Alendronate Sodium 70 mg [Fosamax 70 MG] 70 mg PO WEEKLY 03/08/12 [ History Confirmed 08/25/17] Aspirin EC 81 mg [Ecotrin 81 mg] 81 mg PO DAILY 03/08/12 [History Confirmed 08/25/17] Calcium Carbonate/Vitamin D3 [Calcium 600 + Vit D Caplet] 1 tab PO BID 03/08/12 [History Confirmed 08/25/17] Cholecalciferol (Vitamin D3) [Vitamin D] 1 tab PO BID 12/22/14 [History Confirmed 08/25/17] Simvastatin 40 mg [Zocor 40 mg] 40 mg PO DAILY 12/22/14 [History Confirmed 08/25] Hydrocodone Bit/Acetaminophen [[place] 5-325 Tablet] 1 each PO Q6H PRN PRN #15 tablet MDD 4 08/25/17 [Rx Confirmed 08/25/17] Indomethacin 25 mg [Indocin 25 MG] 25 mg PO TID #15 capsule 08/25/17 [Rx Confirmed 08/25/17] Allergies/Adverse Reactions: Allergies Allergy/AdvReac Type Severity Reaction Status Date / Time diphenhydramine HCl Allergy Mild Verified 08/25/17 07:28 [From Benadryl] - Past Medical History Past Medical History: Yes Neurological History: No Pertinent History ENT History: No Pertinent History Cardiac History: No Pertinent History Respiratory History: No Pertinent History Endocrine Medical History: No Pertinent History Musculoskelatal History: Arthritis, Osteoporosis GI Medical History: GERD History: No Pertinent History Pyscho-Social History: No Pertinent History Reproductive Disorders: No Pertinent History - Female History Are you now?: No - Past Surgical History Past Surgical History: Yes Neuro Surgical History: No Pertinent History Cardiac History: No Pertinent History Respiratory Surgery: No Pertinent History GI Surgical History: Appendectomy, Cholecystectomy Genitourinary Surgical Hx: Other Musculskeletal Surgical Hx: No Pertinent History Female Surgical History: Hysterectomy Other Surgical History: kidney stones - Social History Smoking Status: Never smoker Exposure to second hand smoke: No Alcohol: None Drug Use: none - Physical Exam Vital Signs: Vital Signs - 24 hr Temp Pulse Resp BP Pulse Ox 08/26/17 07:55 98.7 F 82 20 129/59 95 08/26/17 07:13 94 L 08/26/17 04:55 93 L 08/26/17 04:54 93 L 08/26/17 04:00 98.4 F 87 20 149/72 95 08/26/17 02:12 104 H 16 93 L 08/26/17 01:30 89 L 08/26/17 01:13 98.4 F 92 H 18 187/77 91 L 08/25/17 23:53 73 16 148/78 97 08/25/17 22:41 84 14 123/73 85 L 08/25/17 21:50 99.2 F 97 H 152/116 97 Oxygen-Last 24 hours O2 Percentage 2 Liters = 28% O2 Percentage 2 Liters = 28% O2 Percentage 2 Liters = 28% O2 Percentage 2 Liters = 28% O2 Percentage 4 Liters = 36% General Appearance: no apparent distress, alert Neurologic Exam: oriented x 3, cooperative Eye Exam: eyes nml inspection Ears, Nose, Throat Exam: moist mucous membranes Neck Exam: normal inspection Respiratory Exam: normal breath sounds, lungs clear, No crackles/rales, No rhonchi, No wheezing Cardiovascular Exam: regular rate/rhythm, normal heart sounds, No murmur Gastrointestinal/Abdomen Exam: soft, normal bowel sounds, distention, No tenderness, No mass, No guarding, No rebound Back Exam: other (spine nttp throughout. L& R paraspinal area L4-L5 nttp.) Extremity Exam: normal inspection, No pedal edema, No swelling Skin Exam: normal color, warm, dry, No rash Results - Labs Lab/Micro Results: Lab Results-Last 24 Hours 08/26/17 08/26/17 Range/Units 05:12 05:12 WBC 9.8 (4.0-10.5) K/mm3 RBC 4.44 (4.1-5.4) M/mm3 Hgb 13.9 (12.0-16.0) gm/dl Hct 41.7 (35-47) % MCV 93.9 (78-100) fl MCH 31.3 (26-32) pg MCHC 33.3 (32-36) g/dl RDW 12.8 (11.5-14.0) % Plt Count 242 (150-450) K/mm3 MPV 10.9 H (6-9.5) fl Gran % 77.3 H (36.0-66.0) % Eos # (Auto) 0.05 (0-0.5) Absolute Lymphs (auto) 1.21 (1.0-4.6) Absolute Monos (auto) 0.95 (0.0-1.3) Lymphocytes % 12.4 L (24.0-44.0) % Monocytes % 9.7 (0.0-12.0) % Eosinophils % 0.5 (0.00-5.0) % Basophils % 0.1 (0.0-0.4) % Absolute Granulocytes 7.57 H (1.4-6.9) Basophils # 0.01 (0-0.4) Sodium 138 (137-145) mmol/L Potassium 4.0 (3.5-5.1) mmol/L Chloride 100 (98-107) mmol/L Carbon Dioxide 28 (22-30) mmol/L Anion Gap 12.7 (5-15) MEQ/L BUN 13 (7-17) mg/dL Creatinine 0.77 (0.52-1.04) mg/dL Estimated GFR > 60 ML/MIN Glucose 106 (74-106) mg/dL Calcium 9.1 (8.4-10.2) mg/dL Total Bilirubin 1.00 (0.2-1.3) mg/dL AST 25 (14-36) U/L ALT 14 (0-35) U/L Alkaline Phosphatase 57 (38-126) U/L Serum Total Protein 7.1 (6.3-8.2) g/dL Albumin 3.9 (3.5-5.0) g/dL - Other Procedures and Tests Respiratory Therapy 08/26/17 01:52 Oxygen NASAL CANNULA 2 lpm Assessment/Plan (1) UTI (urinary tract infection) Current Visit: Yes Status: Acute Qualifiers: Urinary tract infection type: acute cystitis Assessment & Plan: pt is on PO cipro. UCx was done with GNR, sensitivity pending, on 08/24/17 - lab is checking into those results. Code(s): N39.0 - URINARY TRACT INFECTION, SITE NOT SPECIFIED (2) Back pain Current Visit: No Status: Acute Qualifiers: Back pain location: low back pain Back pain laterality: bilateral Sciatica presence: without sciatica Assessment & Plan: Will try percocet for pain control. Consult PT. She may need a neurosurgery consult outpatient; no complaint of deficits but does have stenosis. Code(s): M54.9 - DORSALGIA, UNSPECIFIED
[2017-08-26] MEDS ORDERED: Cipro 500 MG PO SCH (10:00)
[2017-08-26] MEDS ORDERED: Dulcolax 10 MG SUPP PR PRN (10:15)
[2017-08-26] MEDS: Colace 100 MG PO SCH (10:35)
[2017-08-26] MEDS: ROCEPHIN 1 Gm-D5w 50 ml Bag** 1 G/50 ML IVPB IV SCH (10:35)
[2017-08-26] MEDS: ENOXAPARIN SODIUM SQ SCH (10:35)
[2017-08-26] MEDS: OXYCODONE-ACETAMINOPHEN 10-325 PO PRN ×3 (10:37→18:40)
[2017-08-26] MEDS: VITAMIN D PO SCH ×2 (12:23→22:30)
[2017-08-26] MEDS: Calcium 500MG W/Vit D Tablet PO SCH ×2 (12:23→22:30)
[2017-08-26] MEDS: Zofran 4 MG/2 ML VIAL IV PRN (18:18)
[2017-08-26] MEDS ORDERED: NON-FORMULARY ITEM (Calcium Carbonate/Vitamin D3 [Calcium 600 + Vit D Caplet] 1 TAB) PO SCH (22:00)
[2017-08-26] MEDS: ZOCOR 20MG PO SCH (22:30)
[2017-08-27] MEDS: OXYCODONE-ACETAMINOPHEN 10-325 PO PRN ×4 (03:31→15:34)
[2017-08-27] MEDS: Sodium Chloride 0.9% 1000 ML 1,000 ML IV SCH ×2 (07:16→21:25)
[2017-08-27] MEDS: Zofran 4 MG/2 ML VIAL IV PRN ×2 (08:25→14:30)
[2017-08-27] MEDS ORDERED: OXYCODONE-ACETAMINOPHEN 10-325 PO ONE (08:41)
--- NOTE | 2017-08-27 08:45 | PCM.DS ---
Discharge Summary Date of Admission: 08/26/17 00:46 Admitting Physician: YARED JAMES Primary Care Provider: YARED JAMES Allergies Allergies diphenhydramine HCl [From Benadryl] Allergy (Mild, Verified 08/25/17 07:28) Hospital Summary - Hospital Course Hospital Course: Pt admitted from home with partially treated UTI and lower back pain. She was put on IV rocephin. CT lower back showed stenosis in lumbar spine. She denies any paresthesias. She was put on po percocet 10/325 with good pain relief; she did work with PT yesterday but had some increased back pain after she twisted and they stopped the session. This morning she is in 8/10 pain, so worse than previously. Did have percocet 1 hour ago. Having some nausea this morning. - Vitals & Intake/Output Vital Signs: Vital Signs Temperature 98.6 F 08/27/17 07:37 Pulse Rate 86 08/27/17 08:05 Respiratory Rate 17 08/27/17 08:05 Blood Pressure 148/78 08/27/17 07:37 O2 Sat by Pulse Oximetry 97 08/27/17 08:05 Oxygen-Last Documented O2 Percentage 2 Liters = 28% Intake & Output: Intake & Output 08/24/17 08/25/17 08/26/17 08/27/17 11:59 11:59 11:59 11:59 Intake Total 1513 1475 Output Total 150 2750 Balance 1363 -1275 Weight 51.3 kg 56.3 kg - Lab Result Diagrams: 08/26/17 05:12 08/26/17 05:12 - Procedures and Test Procedures and Tests throughout Hospitalization: Therapy Orders & Screens 08/26/17 01:52 Oxygen NASAL CANNULA 2 lpm Comment: pt on cont pulse ox, pt spo2 89%-91% on room air Diagnosis: Lower back pain:UTI 08/26/17 09:01 PT Eval & Treat ( Order) ROUTINE Reason for Eval:: low back pain Diagnosis: Lower back pain:UTI Discharge Exam General Appearance: mild distress, alert Neurologic Exam: oriented x 3, cooperative Skin Exam: normal color, warm, dry, No rash Ears, Nose, Throat Exam: moist mucous membranes Neck Exam: normal inspection Respiratory Exam: normal breath sounds, lungs clear, No crackles/rales, No rhonchi, No wheezing Cardiovascular Exam: regular rate/rhythm, normal heart sounds, No murmur Gastrointestinal/Abdomen Exam: soft, normal bowel sounds, No tenderness, No distention Extremity Exam: No pedal edema, No swelling Final Diagnosis/Problem List - Final Discharge Diagnosis/Problem (1) UTI (urinary tract infection) Current Visit: Yes Status: Acute Onset Date: ~08/26/17 Assessment & Plan: on IV rocephin. Current UCx is negative but she had one from ER that is the basis of current tx. (2) Back pain Current Visit: Yes Status: Acute Onset Date: ~08/26/17 Assessment & Plan: with stenosis. Setting up outpatient neurosurgery appt through our office. Would like PT to look at pt once more today, if they recommend ok to d/c to home would do that on po percocet. If not ok, will follow recommendations on therapy. - Discharge Disposition: Home, Self-Care Condition: Stable Prescriptions: No Action Calcium Carbonate/Vitamin D3 [Calcium 600 + Vit D Caplet] 1 tab PO BID Aspirin EC 81 mg [Ecotrin 81 mg] 81 mg PO DAILY Alendronate Sodium 70 mg [Fosamax 70 MG] 70 mg PO WEEKLY Cholecalciferol (Vitamin D3) [Vitamin D] 1 tab PO BID Simvastatin 40 mg [Zocor 40 mg] 40 mg PO DAILY Hydrocodone Bit/Acetaminophen [[place] 5-325 Tablet] 1 each PO Q6H PRN PRN #15 tablet MDD 4 PRN Reason: Pain Indomethacin 25 mg [Indocin 25 MG] 25 mg PO TID #15 capsule Follow up with: YARED JAMES [Primary Care Provider] - 1 Week
[2017-08-27] MEDS: Colace 100 MG PO SCH (09:31)
[2017-08-27] MEDS: ENOXAPARIN SODIUM SQ SCH (09:31)
[2017-08-27] MEDS: ROCEPHIN 1 Gm-D5w 50 ml Bag** 1 G/50 ML IVPB IV SCH (09:31)
[2017-08-27] MEDS: ECOTRIN 81 MG PO SCH (09:31)
[2017-08-27] MEDS: Calcium 500MG W/Vit D Tablet PO SCH ×2 (09:31→21:22)
[2017-08-27] MEDS: VITAMIN D PO SCH ×2 (09:32→21:23)
[2017-08-27] MEDS: Indocin 25 MG PO PRN ×2 (09:33→17:00)
[2017-08-27] MEDS ORDERED: CITROMA 296 ML PO ONE (10:39)
--- NOTE | 2017-08-27 13:15 | XRAY ---
Indication: Short of breath. Vomiting. Comparison: March 08, 2012. Portable AP/lateral chest underinflated today with mild bibasilar infiltrates versus atelectasis. No consolidation or large effusion. Heart is not enlarged. 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 Bony thorax again demonstrates osteopenia and degenerative changes. New T6/T12 compression deformities with approximately 50% height loss of uncertain chronicity. Interval T8/T9 kyphoplasty. Impression: 1. Underinflated lungs with bibasilar infiltrates/atelectasis. Correlate clinically. 2. New T6/T12 compression deformities of uncertain chronicity and T8-T9 kyphoplasty.
[2017-08-27] MEDS: Protonix 40MG Tablet PO SCH (15:31)
[2017-08-27] MEDS: ZOCOR 20MG PO SCH (21:22)
[2017-08-28] MEDS: Sodium Chloride 0.9% 1000 ML 1,000 ML IV SCH (06:20)
[2017-08-28] MEDS: OXYCODONE-ACETAMINOPHEN 10-325 PO PRN ×2 (06:25→12:46)
--- NOTE | 2017-08-28 08:39 | PCM.DS ---
Discharge Summary Date of Admission: 08/26/17 00:46 Admitting Physician: YARED JAMES Primary Care Provider: YARED JAMES Allergies Allergies diphenhydramine HCl [From Benadryl] Allergy (Mild, Verified 08/25/17 07:28) Hospital Summary - Hospital Course Hospital Course: Pt admtited through ER with 2 weeks of back pain, worsening, and UTI. Put on PO cipro but changed to IV rocephin while here. Initially given dilaudid for back pain but was changed to po percocet. CT lumbar spine with stenosis. Pt denies paresthesias. Urinating and stooling (although has had constipation here ). This morning she is feeling better. She did have some anxiety this morning with some mild disorientation (not requiring medication). Her BP has been elevated here at times, but other times in the normal 110s-120s systolic, so I think related to pain. She has been working well with PT. Was going to d/c home yesterday but was having quite a bit of nausea. - Vitals & Intake/Output Vital Signs: Vital Signs Temperature 97.6 F 08/28/17 07:16 Pulse Rate 83 08/28/17 07:16 Respiratory Rate 20 08/28/17 07:16 Blood Pressure 160/74 08/28/17 07:16 O2 Sat by Pulse Oximetry 95 08/28/17 07:16 Oxygen-Last Documented O2 Percentage 2 Liters = 28% Intake & Output: Intake & Output 08/25/17 08/26/17 08/27/17 08/28/17 11:59 11:59 11:59 11:59 Intake Total 1513 1475 1158 Output Total 150 2750 1750 Balance 1363 -1275 -592 Weight 51.3 kg 56.3 kg 56 kg - Lab Result Diagrams: 08/26/17 05:12 08/26/17 05:12 - Radiology Exams Ordered Rad Exams-Entire Visit: Radiology Procedures Category Date Time Status CHEST 2 VIEWS (PA AND LAT) Routine Exams 08/27/17 13:01 Completed - Procedures and Test Procedures and Tests throughout Hospitalization: Therapy Orders & Screens 08/26/17 01:52 Oxygen NASAL CANNULA 2 lpm Comment: pt on cont pulse ox, pt spo2 89%-91% on room air Diagnosis: Lower back pain:UTI 08/26/17 09:01 PT Eval & Treat (MD Order) ROUTINE Reason for Eval:: low back pain Diagnosis: Lower back pain:UTI 08/27/17 11:42 Incentive Spirometry Assessmen TID Comment: Diagnosis: Lower back pain:UTI Discharge Exam General Appearance: no apparent distress, alert Neurologic Exam: oriented x 3, cooperative Skin Exam: normal color, warm, dry, No rash Respiratory Exam: normal breath sounds, lungs clear, No crackles/rales, No rhonchi, No wheezing Cardiovascular Exam: regular rate/rhythm (heart sounds distant) Extremity Exam: normal inspection, No pedal edema, No swelling Back Exam: normal inspection, No rash Final Diagnosis/Problem List - Final Discharge Diagnosis/Problem (1) UTI (urinary tract infection) Current Visit: Yes Status: Acute Onset Date: ~08/26/17 Assessment & Plan: Back home on po cipro to finish 7d of treatment. (2) Back pain Current Visit: Yes Status: Acute Onset Date: ~08/26/17 Assessment & Plan: with stenosis. We have referred her to neurosurgery. - Discharge Disposition: Home, Self-Care Condition: Stable Prescriptions: New Ciprofloxacin [Cipro 500 MG] 500 mg PO BID #8 tablet Oxycodone / APAP 10/325 mg [Oxycodone-Acetaminophen 10-325] 2 tab PO Q6H PRN PRN #56 tablet MDD 8 PRN Reason: Pain Continue Calcium Carbonate/Vitamin D3 [Calcium 600 + Vit D Caplet] 1 tab PO BID Aspirin EC 81 mg [Ecotrin 81 mg] 81 mg PO DAILY Alendronate Sodium 70 mg [Fosamax 70 MG] 70 mg PO WEEKLY Cholecalciferol (Vitamin D3) [Vitamin D] 1 tab PO BID Simvastatin 40 mg [Zocor 40 mg] 40 mg PO DAILY Indomethacin 25 mg [Indocin 25 MG] 25 mg PO TID #15 capsule Esomeprazole Magnesium [Nexium] 40 mg PO DAILY Discontinued Hydrocodone Bit/Acetaminophen [[place] 5-325 Tablet] 1 each PO Q6H PRN PRN #15 tablet MDD 4 PRN Reason: Pain Follow up with: YARED JAMES [Primary Care Provider] - 09/04/17 10:15 am
[2017-08-28] MEDS: Protonix 40MG Tablet PO SCH (11:07)
[2017-08-28] MEDS: Calcium 500MG W/Vit D Tablet PO SCH (11:07)
[2017-08-28] MEDS: Colace 100 MG PO SCH (11:07)
[2017-08-28] MEDS: ECOTRIN 81 MG PO SCH (11:07)
[2017-08-28] MEDS: ENOXAPARIN SODIUM SQ SCH (11:07)
[2017-08-28] MEDS: ROCEPHIN 1 Gm-D5w 50 ml Bag** 1 G/50 ML IVPB IV SCH (11:07)
[2017-08-28] MEDS: VITAMIN D PO SCH (11:20)
[2017-08-28 14:46] VITALS: O2SAT 95
[2017-08-28 15:51] VITALS: BP 137/65; PULSE 78
== END 2017-08-28 16:00 | disposition home health service (06) ==
LOC: ED 21:43 → MED SURG 08-26 00:46
PROVIDERS: ADMIT Family Medicine; ATTEND Family Medicine
DX: N39.0 Urinary tract infection, site not specified (principal); M54.9 Dorsalgia, unspecified; M43.16 Spondylolisthesis, lumbar region; M48.061 Spinal stenosis, lumbar region without neurogenic claudication; M19.90 Unspecified osteoarthritis, unspecified site; M81.0 Age-related osteoporosis without current pathological fracture; K21.9 Gastro-esophageal reflux disease without esophagitis
CPT/HCPCS: 36000; 36415; 71046; 72131; 80053; 81000; 82150; 83690; 83735; 85025; 87086; 93268; 94760; 96360; 96361; 96374; 96375; 96376; 99285; J0696; J1170; J1650; J2405; J2550; 97110-GP; A9270-GY; G0378

== ENCOUNTER 2020-06-09 06:04 | Emergency (ER) | payer MEDICARE ==
[2020-06-09] MEDS ORDERED: XYLOCAINE 1% HCL 20 ML MDV ONE (06:30)
--- NOTE | 2020-06-09 06:58 | ERPHSYRPT ---
- History of Present Illness Source: patient Exam Limitations: no limitations Patient Subjective Stated Complaint: Patient states " I have been sleeping on the couch and I got up to go to the bathroom and I fell and smacked my head on the floor". Triage Nursing Assessment: Patient arrived to ED and ambulated to room with walker with slow and steady gait. Patient A/O times 4. 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 Occurred: this morning Reason for Fall: unknown Injuries/Pain Location: head, face Loss of Consciousness: no loss of consciousness Quality: aching, dullness Severity of Pain-Max: mild Severity of Pain-Current: mild Associated Symptoms (Fall): headache Hx Tetanus, Diphtheria Vaccination/Date Given: Yes Hx Influenza Vaccination/Date Given: No Hx Pneumococcal Vaccination/Date Given: No Immunizations Up to Date: Yes <TAIWO LOCK - Last Filed: 06/09/20 06:53> <DARY CRAIG - Last Filed: 06/09/20 12:44> - History of Present Illness Time Seen by Provider: 06/09/20 06:27 Physician History: 84 years old female presented in the ER with chief complaint of fall and a laceration left forehead. Patient reports she woke up to go to bathroom, collapsed, hit her head on the floor. No loss of consciousness. There was bleeding initially but stopped after applying pressure. Denies any difficulty movements of eyeball or visual disturbance. Denies any focal numbness tingling or weakness. Denies any chest pain palpitations or shortness of breath before or after the fall. Denies any dizziness or lightheadedness causing her to fall. No balance problem in the past. She is complaining of dull aching headache especially in the left forehead area. Not taking any blood thinners (TAIWO LOCK) Allergies/Adverse Reactions: diphenhydramine HCl [From Benadryl] Allergy (Mild, Verified 06/09/20 07:39) Nausea and Vomiting Home Medications: Alendronate Sodium 70 mg [Fosamax 70 MG] 70 mg PO WEEKLY 03/08/12 [History] Aspirin EC 81 mg [Ecotrin 81 mg] 81 mg PO DAILY 03/08/12 [History] Calcium Carbonate/Vitamin D3 [Calcium 600 + Vit D Caplet] 1 tab PO BID 03/08/12 [History] Cholecalciferol (Vitamin D3) [Vitamin D] 1 tab PO BID 12/22/14 [History] Simvastatin 40 mg [Zocor 40 mg] 40 mg PO DAILY 12/22/14 [History] Esomeprazole Magnesium [Nexium] 40 mg PO DAILY 08/27/17 [History] Travel Risk - International Travel Have you traveled outside of the country in past 3 weeks: No - Coronavirus Screening Are you exhibiting any of the following symptoms?: No Close contact with a COVID-19 positive Pt in past 14-21 Days: No <TAIWO LOCK - Last Filed: 06/09/20 06:53> - Review of Systems Constitutional: No Symptoms Eyes: No Symptoms Ears, Nose, & Throat: No Symptoms Respiratory: No Symptoms Cardiac: No Symptoms Abdominal/Gastrointestinal: No Symptoms Genitourinary Symptoms: No Symptoms Musculoskeletal: Injury Skin: Skin Lesions Neurological: Headache Psychological: No Symptoms Endocrine: No Symptoms Hematologic/Lymphatic: No Symptoms Immunological/Allergic: No Symptoms <TAIWO LOCK - Last Filed: 06/09/20 06:53> - Past Medical History Pertinent Past Medical History: Yes Neurological History: No Pertinent History ENT History: No Pertinent History Cardiac History: No Pertinent History Respiratory History: No Pertinent History Endocrine Medical History: No Pertinent History Musculoskeletal History: Arthritis, Osteoporosis GI Medical History: GERD History: No Pertinent History Psycho-Social History: No Pertinent History Female Reproductive Disorders: No Pertinent History - Past Surgical History Past Surgical History: Yes Neuro Surgical History: No Pertinent History Cardiac: No Pertinent History Respiratory: No Pertinent History Gastrointestinal: Appendectomy, Cholecystectomy Genitourinary: Other Musculoskeletal: No Pertinent History Female Surgical History: Hysterectomy Other Surgical History: kidney stones - Social History Smoking Status: Never smoker Exposure to second hand smoke: No Drug Use: none Patient Lives Alone: No - Female History Hx Last Menstrual Period: POST Hx Now: No <TAIWO LOCK - Last Filed: 06/09/20 06:53> - [place] Coma Score Best Eye Response ([place]): (4) open spontaneously Best Verbal Response ([place]): (5) oriented (He have these to him and there have not been done yet but 1 is 81 1 is [age] years old he probably needs to come in for sure he woke up at 430 this morning with chest pain on the right side radiating to the jaw some nitro and that made him quite lightheaded and on that pressure is fine now 125 over s) Best Motor Response ([place]): (6) obeys commands (fine thank you let me document this think) [place] Total: 15 - Physical Exam General Appearance: no apparent distress, alert Head Injury: lacerations (3cm just above left eyebrow), swelling, tenderness Eye Exam: PERRL/EOMI, eyes nml inspection ENT Exam: airway nml, evidence of ENT injury Neck Exam: supple, trachea midline, full range of motion, normal alignment, normal inspection Respiratory/Chest Exam: normal breath sounds, respiratory distress, No chest tenderness Cardiovascular Exam: normal heart sounds, regular rate/rhythm Gastrointestinal Exam: soft, normal bowel sounds Back Exam: normal inspection Extremity Exam: normal inspection, normal range of motion, capillary refill <3 sec, pelvis stable Neurologic Exam: alert, oriented x 3, cooperative, 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-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 nml as tested, normal mood/affect, nml cerebellar function, sensation nml, No motor deficits, No sensory deficit Skin Exam: normal color SpO2 Interpretation: normal SpO2: 95 O2 Delivery: Room Air <TAIWO LOCK - Last Filed: 06/09/20 06:53> - Nursing Vital Signs Nursing Vital Signs: Initial Vital Signs Temperature 98.2 F 06/09/20 06:04 Pulse Rate 92 H 06/09/20 06:04 Respiratory Rate 18 06/09/20 06:04 Blood Pressure 175/111 06/09/20 06:04 O2 Sat by Pulse Oximetry 95 06/09/20 06:04 Pain Scale Pain Intensity 0 Procedures - Laceration/Wound Repair forehead Wound Location: Left, forehead Wound Length (cm): 3 (06/09/2020 0640) Wound's Depth, Shape: into muscle Wound Explored: clean Irrigated: Yes Hibiclens Prep: Yes Anesthesia: local, 1% Lidocaine Volume Anesthetic (ccs): 2 Wound Repaired With: sutures Suture Size/Type: 5-0, prolene Number of Sutures: 7 Layer Closure?: No <TAIWO LOCK - Last Filed: 06/09/20 06:53> - Course Nursing assessment & vital signs reviewed: Yes EKG Interpreted by Me: RATE (NSR/R82/Tall R wave V2/Normal Qt-QTc/Flat T waves/Normal ST) Rhythm Strip: Rate - Radiology Exams Chest X-ray Interpretation: Interpreted by me (Cardiomegaly wo decompensation) - CT Exams Head CT Interpretation: Discussed w/radiologist (Nothing acute) Cervical Spine CT Interpretation: Discussed w/radiologist (Neg per Rad) <DARY CRAIG - Last Filed: 06/09/20 12:44> Ordered Tests: Active Orders 24 hr Category Date Time Status Bus Washer STAT Care 06/09/20 06:45 Completed EKG-ER Only STAT Care 06/09/20 06:45 Completed IV Insertion STAT Care 06/09/20 06:45 Completed CERVICAL SPINE WO CONTRAST [CT] Stat Exams 06/09/20 06:51 Completed CHEST 1 VIEW (PORTABLE) Stat Exams 06/09/20 06:[address] ANGIOGRAPHY NECK [CT] Stat Exams 06/09/20 08:25 Completed HEAD WITHOUT CONTRAST [CT] Stat Exams 06/09/20 06:34 Completed PELVIS WITHOUT CONTRAST [CT] Stat Exams 06/09/20 07:46 Completed CBC W DIFF Stat Lab 06/09/20 07:12 Completed CMP Stat Lab 06/09/20 07:12 Completed NT PRO BNP Stat Lab 06/09/20 07:12 Completed TROPONIN Q3H Lab 06/09/20 07:12 Completed TROPONIN Q3H Lab 06/09/20 09:37 Completed UA W/RFX UR CULTURE Stat Lab 06/09/20 07:41 Completed Transfer Order Routine Transfer 06/09/20 Ordered Medication Summary Discontinued Medications Generic Name Dose Route Start Last Admin Trade Name Freq PRN Reason Stop Dose Admin Lidocaine HCl Confirm 06/09/20 06:30 Xylocaine 1% Hcl 20 Ml Mdv Administered 06/09/20 06:31 Dose 10 ml .ROUTE .STK-MED ONE Lab/Rad Data: Laboratory Result Diagrams 06/09/20 07:12 06/09/20 07:12 Laboratory Results 06/09/20 06/09/20 06/09/20 Range/Units 09:37 07:41 07:12 WBC (4.0-10.5) K/mm3 RBC (4.1-5.4) M/mm3 Hgb (12.0-16.0) gm/dl Hct (35-47) % MCV (78-100) fl MCH (26-32) pg MCHC (32-36) g/dl RDW (11.5-14.0) % Plt Count (150-450) K/mm3 MPV (7.5-11.0) fl Gran % (36.0-66.0) % Eos # (Auto) (0-0.5) Absolute Lymphs (auto) (1.0-4.6) Absolute Monos (auto) (0.0-1.3) Lymphocytes % (24.0-44.0) % Monocytes % (0.0-12.0) % Eosinophils % (0.00-5.0) % Basophils % (0.0-0.4) % Absolute Granulocytes (1.4-6.9) Basophils # (0-0.4) Sodium 139 (137-145) mmol/L Potassium 4.0 (3.5-5.1) mmol/L Chloride 104 (98-107) mmol/L Carbon Dioxide 29 (22-30) mmol/L Anion Gap 8.8 (5-15) MEQ/L BUN 13 (7-17) mg/dL Creatinine 0.60 (0.52-1.04) mg/dL Estimated GFR > 60.0 ML/MIN Glucose 91 (74-106) mg/dL Calcium 9.7 (8.4-10.2) mg/dL Total Bilirubin 0.70 (0.2-1.3) mg/dL AST 27 (14-36) U/L ALT 13 (0-35) U/L Alkaline Phosphatase 56 (38-126) U/L Troponin I < 0.012 (0.000-0.034) ng/mL NT-Pro-B Natriuret Pep 101 (0-1800) pg/mL Serum Total Protein 7.2 (6.3-8.2) g/dL Albumin 4.2 (3.5-5.0) g/dL Urine Color STRAW (YELLOW) Urine Appearance CLEAR (CLEAR) Urine pH 7.0 (5-6) Ur Specific [place] 1.008 (1.005-1.025) Urine Protein NEGATIVE (Negative) Urine Ketones NEGATIVE (NEGATIVE) Urine Blood NEGATIVE (0-5) [place]/ul Urine Nitrite NEGATIVE (NEGATIVE) Urine Bilirubin NEGATIVE (NEGATIVE) Urine Urobilinogen NEGATIVE (0-1) mg/dL Ur Leukocyte Esterase MODERATE (NEGATIVE) Urine WBC (Auto) 11-15 (0-5) /HPF Urine RBC (Auto) NONE (0-2) /HPF U Epithel Cells (Auto) NONE (FEW) /HPF Urine Bacteria (Auto) RARE (NEGATIVE) /HPF Urine Mucus (Auto) SLIGHT (NEGATIVE) /HPF Urine Culture Reflexed NO (NO) Urine Glucose NEGATIVE (NEGATIVE) mg/dL 06/09/20 06/09/20 Range/Units 07:12 07:12 WBC 6.6 (4.0-10.5) K/mm3 RBC 4.70 (4.1-5.4) M/mm3 Hgb 14.3 (12.0-16.0) gm/dl Hct 43.9 (35-47) % MCV 93.4 (78-100) fl MCH 30.4 (26-32) pg MCHC 32.6 (32-36) g/dl RDW 12.5 (11.5-14.0) % Plt Count 219 (150-450) K/mm3 MPV 10.9 (7.5-11.0) fl Gran % 68.1 H (36.0-66.0) % Eos # (Auto) 0.23 (0-0.5) Absolute Lymphs (auto) 1.33 (1.0-4.6) Absolute Monos (auto) 0.53 (0.0-1.3) Lymphocytes % 20.1 L (24.0-44.0) % Monocytes % 8.0 (0.0-12.0) % Eosinophils % 3.5 (0.00-5.0) % Basophils % 0.3 (0.0-0.4) % Absolute Granulocytes 4.50 (1.4-6.9) Basophils # 0.02 (0-0.4) Sodium (137-145) mmol/L Potassium (3.5-5.1) mmol/L Chloride (98-107) mmol/L Carbon Dioxide (22-30) mmol/L Anion Gap (5-15) MEQ/L BUN (7-17) mg/dL Creatinine (0.52-1.04) mg/dL Estimated GFR ML/MIN Glucose (74-106) mg/dL Calcium (8.4-10.2) mg/dL Total Bilirubin (0.2-1.3) mg/dL AST (14-36) U/L ALT (0-35) U/L Alkaline Phosphatase (38-126) U/L Troponin I < 0.012 (0.000-0.034) ng/mL NT-Pro-B Natriuret Pep (0-1800) pg/mL Serum Total Protein (6.3-8.2) g/dL Albumin (3.5-5.0) g/dL Urine Color (YELLOW) Urine Appearance (CLEAR) Urine pH (5-6) Ur Specific [place] (1.005-1.025) Urine Protein (Negative) Urine Ketones (NEGATIVE) Urine Blood (0-5) [place]/ul Urine Nitrite (NEGATIVE) Urine Bilirubin (NEGATIVE) Urine Urobilinogen (0-1) mg/dL Ur Leukocyte Esterase (NEGATIVE) Urine WBC (Auto) (0-5) /HPF Urine RBC (Auto) (0-2) /HPF U Epithel Cells (Auto) (FEW) /HPF Urine Bacteria (Auto) (NEGATIVE) /HPF Urine Mucus (Auto) (NEGATIVE) /HPF Urine Culture Reflexed (NO) Urine Glucose (NEGATIVE) mg/dL - Progress Counseled pt/family regarding: diagnosis <TAIWO LOCK - Last Filed: 06/09/20 06:53> <DARY CRAIG - Last Filed: 06/09/20 12:44> - Progress Progress Note: 06/09/20 06:59 Work-up is pending, care is transferred to Dr. Conklin at shift change. (TAIWO LOCK) 06/09/20 07:55 Assumed care of pt at 7:00AM who fell on way to bathroom this morning. Pt has a glabellar laceration that was repaired by outgoing ER physician. Pt is alert/oriented x3/Heart RRRwoM/Abdomen soft, nttp,pelvis stable, hips nttp but pt later complained of L hip pain , so CT pelvis ordered, No focal weakness, pt alert, oriented x3/EKG NSR, tall R wave V2, normal QT-QTc, no acute ST-Twave changes/CBC wnl 06/09/20 10:04 CTA of neck neg. Order for CTA of head did not go through and unable to obtain since pt already injected. Spoke w daughter. 06/09/20 12:43 Pt ambulating wo difficulty in ER. (DARY CRAIG) <TAIWO LOCK - Last Filed: 06/09/20 06:53> - Departure Departure Disposition: Home Critical Care Time: No <DARY CRAIG - Last Filed: 06/09/20 12:44> - Departure Clinical Impression: Forehead laceration, UTI (urinary tract infection) Condition: Stable Referrals: YARED ESCOBAR [Primary Care Provider] - Instructions: Urinary Tract Infection, Adult (DC), Contusion (DC), Laceration Repair With Stitches (DC) Additional Instructions: Keep laceration dry for 48 hours, then wash 1-2 times a day with soap/water Sutures out in 1 week Return to ER for increasing redness/pain/pus/Temperature greater than 100.5/ Also return for focal weakness/chest pain/shortness of breath Bactrim twice a day for 3 days Prescriptions: Sulfamethoxazole/Trimethoprim [Bactrim Ds Tablet] 1 each PO BID #6 tablet
[2020-06-09 07:22] LABS: BASOPHIL % 0.3 % (0.0-0.4); Basophil (Absolute #) 0.02 (0-0.4); Eosinophil % 3.5 % (0.00-5.0); Eosinophil (Absolute #) 0.23 (0-0.5); Hematocrit 43.9 % (35-47); Hemoglobin 14.3 gm/dl (12.0-16.0); Lymphocyte (Absolute #) 1.33 (1.0-4.6); Lymphocytes % 20.1 % (24.0-44.0); Mean Cell Volume 93.4 fl (78-100); Mean Corpuscular Hemoglobin 30.4 pg (26-32); Mean Corpuscular Hgb Concent. 32.6 g/dl (32-36); Mean Platelet Volume 10.9 fl (7.5-11.0); Monocyte (Absolute #) 0.53 (0.0-1.3); Neutrophil % 68.1 % (36.0-66.0); Platelet Count 219 K/mm3 (150-450); Red Cell Distribution Width 12.5 % (11.5-14.0); White Blood Count 6.6 K/mm3 (4.0-10.5)
[2020-06-09 08:06] LABS: ALBUMIN 4.2 g/dL (3.5-5.0); ALKALINE PHOSPHATASE 56 U/L (38-126); ANION GAP 8.8 MEQ/L (5-15); BLOOD UREA NITROGEN 13 mg/dL (7-17); CHLORIDE 104 mmol/L (98-107); Calcium 9.7 mg/dL (8.4-10.2); Carbon Dioxide 29 mmol/L (22-30); EST GLOMERULAR FILTRATION RATE > 60.0 ML/MIN; Glucose 91 mg/dL (74-106); NT PRO BNP 101 pg/mL (0-1800); SGOT/AST 27 U/L (14-36); SGPT/ALT 13 U/L (0-35); SODIUM 139 mmol/L (137-145); Total Protein 7.2 g/dL (6.3-8.2)
[2020-06-09 08:09] LABS: Appearance CLEAR (CLEAR); Bacteria RARE /HPF (NEGATIVE); Bilirubin NEGATIVE (NEGATIVE); Blood NEGATIVE Ery/ul (0-5); Glucose NEGATIVE (NEGATIVE); Ketones NEGATIVE (NEGATIVE); Leukocyte Esterase MODERATE (NEGATIVE); Mucus SLIGHT /HPF (NEGATIVE); Nitrite NEGATIVE (NEGATIVE); Protein,Urine Dip NEGATIVE (Negative); Specific Gravity 1.008 (1.005-1.025); Urobilinogen NEGATIVE mg/dL (0-1)
--- NOTE | 2020-06-09 08:38 | XRAY ---
Indication: Left head injury following fall. Multiple contiguous axial images obtained through the head without contrast. Comparison: None Age-appropriate global atrophy. No acute intracranial hemorrhage, abnormal extra-axial fluid collection, or mass effect. Fourth ventricle is midline without hydrocephalus. Askew-white matter differentiation preserved. Posterior falx demonstrates incidental 1.1 cm round dural calcification. Bony calvarium intact. Visualized paranasal sinuses and mastoid air cells are clear. Impression: Negative CT head without contrast exam.
--- NOTE | 2020-06-09 08:41 | XRAY ---
Indication: Left hip pain following fall. Multiple contiguous axial images obtained through the pelvis with special attention to the osseous structures. Two-dimensional sagittal and coronal reformatted images obtained. Comparison: None Osseous structures demineralized consistent with patient's age. No acute fracture, dislocation, or suspicious bony lesions. There is bilateral degenerative facet hypertrophy of the visualized lower lumbar spine with bilateral L5 spondylolysis and 5 mm spondylolisthesis. Both hips demonstrates mild degenerative joint space narrowing. Visualized noncontrasted soft tissues demonstrates scattered colonic diverticulosis and mild scattered vascular calcifications. No pelvic free fluid/air. Impression: 1. Negative for acute fracture/dislocation. 2. Osteopenia, bilateral hip degenerative arthropathy, lower lumbar degenerative spondylosis, and L5 spondylolysis with grade 1 spondylolisthesis. 2. Incidental colonic diverticulosis and scattered vascular calcifications.
--- NOTE | 2020-06-09 08:42 | XRAY ---
Indication: Head injury following fall. Multiple contiguous axial images obtained through the cervical spine. Sagittal and coronal reformatted images obtained. Comparison: None Osseous structures demineralized consistent with patient's age. Axial images negative for acute fracture, suspicious bony lesions, or spinal canal stenosis. Minimal C5-C6 degenerative endplate spurring and mild multilevel bilateral degenerative facet hypertrophy. Sagittal and coronal reformatted images demonstrates accentuated cervical lordosis and minimal C5-C6 disc space narrowing. Incidental MRI proven remote T2 compression fracture. No acute compression fracture, subluxation, or jumped facet. Normal appearing craniocervical junction. Visualized noncontrasted soft tissues demonstrates minimal carotid calcifications bilaterally. Lung apices are clear. Impression: 1. Negative acute fracture/sublocation. 2. Incidental minimal/mild multilevel degenerative changes, osteopenia, and remote T2 compression fracture.
--- NOTE | 2020-06-09 09:23 | XRAY ---
Indication: Status post fall. Comparison: August 27, 2017. Portable chest remains underinflated with focal eventration right hemidiaphragm and borderline cardiomegaly. No focal infiltrate, consolidation, or large effusion. Bony thorax again demonstrates osteopenia, degenerative changes, and multilevel thoracic compression deformities with T8/T9 kyphoplasty. Impression: Nonacute chest with chronic features.
--- NOTE | 2020-06-09 09:53 | XRAY ---
Indication: Syncope and dizziness. Status post fall. Conventional contrast enhanced CTA neck performed using 80 cc Isovue 370 contrast. Two-dimensional sagittal and coronal reformatted images obtained. Additional 3-dimensional reformatted images obtained using a separate workstation. Comparison: None Visualized aortic arch demonstrates anatomic variant for bovine arch with minimal arteriosclerotic calcifications. No aneurysm/dissection. Examination of the right carotid circulation demonstrates tortuous proximal common carotid artery. Widely patent common carotid artery and external carotid artery. Very minimal arteriosclerotic calcifications in the carotid bulb and origin of the internal carotid artery without critical stenosis/obstruction. Examination of the left carotid circulation also demonstrates tortuous proximal common carotid artery. Widely patent common carotid, internal carotid, and external carotid arteries. Very minimal arteriosclerotic calcifications in the carotid bulb without critical stenosis/obstruction. Vertebral arteries are normal in CTA appearance with the right slightly larger in size. Lung apices demonstrate scattered fibrosis/scarring. CT head and CT cervical spine reported separately. Impression: 1. Very minimal arteriosclerotic calcifications bilaterally and bilaterally tortuous proximal common carotid arteries. 2. Remaining CTA neck with contrast exam is negative for critical stenosis or obstruction.
[2020-06-09 11:02] VITALS: BP 123/79; PULSE 94; O2SAT 98
== END 2020-06-09 10:53 | disposition home or self-care (01) ==
LOC: ED 06:04
DX: S01.81XA Laceration without foreign body of other part of head, initial encounter (principal); W01.0XXA Fall on same level from slipping, tripping and stumbling without subsequent striking against object, initial encounter; R07.9 Chest pain, unspecified
CPT/HCPCS: 12013; 36000; 36415; 70450; 70498; 71045; 72125; 72192; 80053; 81001; 83880; 84484; 85025; 93005; 93041; 99284

== ENCOUNTER 2023-10-03 23:46 | Observation (INO) | payer MEDICARE ==
[2023-10-04] MEDS: TYLENOL 325 MG PO STA (00:31)
[2023-10-04] MEDS ORDERED: NORCO 5/325 MG ONE (00:32)
[2023-10-04] MEDS: NORCO 5/325 MG PO ONE (00:33)
--- NOTE | 2023-10-04 00:58 | ERPHSYRPT ---
- History of Present Illness Time Seen by Provider: 10/03/23 23:49 Source: patient, family, EMS, senior living records Patient Subjective Stated Complaint: pt states that earlier today she "stumbled and fell" landing on her butt on carpeted floor. pt denies hitting head or LOC, dizziness or lightheadedness before, during, or after fall. denies wanting anything for pain. Triage Nursing Assessment: pt brought to room 4 via EMS stretcher and ambulated independently to ED cart with slow steady gait. pt is alert and oriented times three, [place], able to speak in complete sentences, able to move all extremities. skin pink, warm, dry, and intact. no injury noted to back. bilat pedal and radial pulses palpable. no edema noted. pt denies numbness or tingling. pt reports that she has chronic back pain to mid upper center back that is worsened this evening after she fell onto her buttocks at approx 2330. pt denies cp, sob, difficulty breathing, lightheadedness, dizziness, or any other complaints. Physician History: 87-year-old female resident of senior living presented to the ER after she stumbled while walking on a carpeted floor this afternoon and fell backward. Patient fell on her hip and low back. Did not hit her head, no loss of consci ousness. Complaining of mild to moderate dull aching pain in mid to lower back. No chest pain or difficulty breathing. No abdominal pain. No lower extremity injuries. Has history of osteoporosis with multiple compression fractures. Occurred: this afternoon Allergies/Adverse Reactions: diphenhydramine HCl [From Benadryl] Allergy (Mild, Verified 10/03/23 23:50) Nausea and Vomiting Home Medications: Alendronate Sodium 70 mg [Fosamax 70 MG] 70 mg PO WEEKLY 03/08/12 [History] Aspirin EC 81 mg [Ecotrin 81 mg] 81 mg PO DAILY 03/08/12 [History] Calcium Carbonate/Vitamin D3 [Calcium 600-Vit D3 400 Caplet] 1 tab PO DAILY 03/08/12 [History] Simvastatin 40 mg [Zocor 40 mg] 0.5 tab PO HS 12/22/14 [History] Acetaminophen [Tylenol Extra Strength] 2 tab PO Q6H PRN PRN 10/04/23 [History] Famotidine 20 mg [Pepcid 20 MG] 20 mg PO BID 10/04/23 [History] Loperamide HCl 2 mg [Imodium 2 mg] 0 mg PO UD PRN 10/04/23 [History] Metoprolol Tartrate 25 mg [Lopressor 25MG Tab] 25 mg PO BID 10/04/23 [History] Naproxen 2 tab PO BIDPRN PRN 10/04/23 [History] Ubidecarenone [Co Q-10] 100 mg PO HS 10/04/23 [History] Vit A/Vit C/Vit E/Zinc/Copper [Preservision Areds Softgel] 1 each PO DAILY 10/04/23 [History] Hx Tetanus, Diphtheria Vaccination/Date Given: Yes Hx Influenza Vaccination/Date Given: Yes Hx Pneumococcal Vaccination/Date Given: Yes Immunizations Up to Date: Yes Travel Risk - International Travel Have you traveled outside of the country in past 3 weeks: No - Emerging Infectious Disease Are you exhibiting symptoms associated with any current EIDs: No - Review of Systems Constitutional: No Symptoms Eyes: No Symptoms Ears, Nose, & Throat: No Symptoms Respiratory: No Symptoms Cardiac: No Symptoms Abdominal/Gastrointestinal: No Symptoms Musculoskeletal: Back Pain, Fall Skin: No Symptoms Neurological: No Symptoms Endocrine: No Symptoms Hematologic/Lymphatic: No Symptoms - Past Medical History Pertinent Past Medical History: Yes Neurological History: No Pertinent History ENT History: No Pertinent History Cardiac History: High Cholesterol, Hypertension Respiratory History: No Pertinent History Endocrine Medical History: No Pertinent History Musculoskeletal History: Arthritis, Osteoporosis, Other GI Medical History: GERD History: No Pertinent History Psycho-Social History: No Pertinent History Female Reproductive Disorders: No Pertinent History Other Medical History: h/o compression fractures to spine, chronic mid to upper center back pain - Past Surgical History Past Surgical History: Yes Neuro Surgical History: No Pertinent History Cardiac: No Pertinent History Respiratory: No Pertinent History Gastrointestinal: Appendectomy, Cholecystectomy Genitourinary: Other Musculoskeletal: No Pertinent History Female Surgical History: Hysterectomy Other Surgical History: kidney stones - Social History Smoking Status: Never smoker Exposure to second hand smoke: No Drug Use: none Patient Lives Alone: No - Nursing Vital Signs Nursing Vital Signs: Initial Vital Signs Temperature 97.8 F 10/03/23 23:51 Pulse Rate 83 10/03/23 23:51 Respiratory Rate 20 10/03/23 23:51 O2 Sat by Pulse Oximetry 96 10/03/23 23:51 Pain Scale Pain Intensity 6 - [place] Coma Score Best Eye Response (Gnina): (4) open spontaneously Best Verbal Response (Ginna): (5) oriented Best Motor Response ([place]): (6) obeys commands [place] Total: 15 - Physical Exam General Appearance: no apparent distress, alert Head Injury: no evidence of injury, No active bleeding Eye Exam: PERRL/EOMI, eyes nml inspection ENT Exam: airway nml, nml ext.inspection, No evidence of ENT injury, No dental injury Neck Exam: supple, trachea midline, full range of motion, normal alignment, normal inspection, No limited range of motion, No muscle spasm, No paraspinous muscle tender, No pain on movement of neck Respiratory/Chest Exam: normal breath sounds, respiratory distress, No chest tenderness Cardiovascular Exam: normal heart sounds, regular rate/rhythm Gastrointestinal Exam: soft, normal bowel sounds, tenderness Back Exam: vertebral tenderness (Lower thoracic to lumbar), decreased range of motion, muscle spasm Extremity Exam: normal inspection, normal range of motion Neurologic Exam: alert, oriented x 3, cooperative, [place]ish line attendant II-XII nml as tested, sensation nml, No motor deficits Skin Exam: normal color SpO2 Interpretation: normal SpO2: 96 O2 Delivery: Room Air Ordered Tests: Active Orders 24 hr Category Date Time Status Oxygen-ED Only Nasal Cannula 2 lpm Care 10/04/23 01:38 Active CHEST 1 VIEW (PORTABLE) Stat Exams 10/04/23 06:11 Taken LUMBAR SPINE W/O [CT] Stat Exams 10/04/23 00:08 Completed PELVIS WITHOUT CONTRAST [CT] Stat Exams 10/04/23 00:08 Completed THORACIC SPINE W/O CONTRAST [CT] Stat Exams 10/04/23 00:08 Completed CBC W DIFF Stat Lab 10/04/23 06:30 Completed CMP Stat Lab 10/04/23 06:30 Completed Transfer Order Routine Transfer 10/04/23 Ordered Medication Summary Discontinued Medications Generic Name Dose Route Start Last Admin Trade Name Freq PRN Reason Stop Dose Admin Acetaminophen 650 mg 10/04/23 00:09 10/04/23 00:31 Acetaminophen 325 Mg Tablet PO 10/04/23 00:10 Not Given STAT STA Hydrocodone Bitart/Acetaminophen 1 tab 10/04/23 00:24 10/04/23 00:33 Hydrocodone/Apap 5/325 1 Tab Tablet PO 10/04/23 00:25 1 tab STAT ONE Administration Hydrocodone Bitart/Acetaminophen Confirm 10/04/23 00:32 Hydrocodone/Apap 5/325 1 Tab Tablet Administered 10/04/23 00:33 Dose 1 tab .ROUTE .STK-MED ONE Lab/Rad Data: Laboratory Result Diagrams 10/04/23 06:30 10/04/23 06:30 Laboratory Results 10/04/23 10/04/23 Range/Units 06:30 06:30 WBC 9.1 (4.0-10.5) x10^3/uL RBC 4.20 (4.1-5.4) x10^6/uL Hgb 12.6 (12.0-16.0) g/dL Hct 38.0 (35-47) % MCV 90.5 (78-100) fL MCH 30.0 (26-32) pg MCHC 33.2 (32-36) g/dL RDW 12.6 (11.5-14.0) % Plt Count 204 (150-450) x10^3/uL MPV 9.8 (7.5-11.0) fL Gran % 80.4 H (36.0-66.0) % Immature Gran % (Auto) 0.3 (0.00-0.4) % Nucleat RBC Rel Count 0.0 (0.00-0.1) % Eos # (Auto) 0.02 (0-0.5) x10^3/uL Immature Gran # (Auto) 0.03 (0.00-0.03) x10^3u/L Absolute Lymphs (auto) 0.96 L (1.0-4.6) x10^3/uL Absolute Monos (auto) 0.75 (0.0-1.3) x10^3/uL Absolute Nucleated RBC 0.00 (0.00-0.01) x10^3u/L Lymphocytes % 10.6 L (24.0-44.0) % Monocytes % 8.3 (0.0-12.0) % Eosinophils % 0.2 (0.00-5.0) % Basophils % 0.2 (0.0-0.4) % Absolute Granulocytes 7.29 H (1.4-6.9) x10^3/uL Basophils # 0.02 (0-0.4) x10^3/uL Sodium 135 (135-145) mmol/L Potassium 3.9 (3.5-5.1) mmol/L Chloride 105 (98-107) mmol/L Carbon Dioxide 22 (22-30) mmol/L Anion Gap 12.0 (5-15) MEQ/L BUN 12 (7-17) mg/dL Creatinine 0.59 (0.52-1.04) mg/dL Estimated GFR 87.2 ML/MIN Glucose 131 H (74-106) mg/dL Calcium 8.7 (8.4-10.2) mg/dL Total Bilirubin 1.20 (0.2-1.3) mg/dL AST 24 (14-36) U/L ALT 15 (0-35) U/L Alkaline Phosphatase 70 (38-126) U/L Serum Total Protein 7.2 (6.3-8.2) g/dL Albumin 4.1 (3.5-5.0) g/dL - Progress Progress: improved Progress Note: 10/04/23 03:56 sfgdf 10/04/23 06:59 hypoxia , on 2liter , cxr negative reviewed by me , d/w hospitalist and pt is being admitted for obs Discussed with : Niles Counseled pt/family regarding: diagnosis, need for follow-up, rad results Medical Desision Making - Independent Historian Additional History obtained from: Child, Residential nurse, Quality Assurance Specialist/EMT - Discussion of managment Care discussed with:: hospitalist Reviewed:: Test results Agreed on:: Treatment plan Will see patient: in hospital - Diagnostic Testing Diagnostic test were ordered, analyzed, and reviewed by me: Yes Radiological Interpretation: Reviewed by me, Teleradiologist Report - Risk of complications The pt has a high risk of morbidity or mortality based on: Decision regarding hospitilization or escalation of hosp level of care - Departure Departure Disposition: Observation Clinical Impression: Compression fracture of thoracic vertebra, Fall, Osteoporosis of lumbar spine, Hypoxia Condition: Stable Critical Care Time: No Prescriptions: Lidocaine HCl 5% Patch [Lidoderm Patch 5%] 1 patch TP DAILY 12 Days #12 patch
--- NOTE | 2023-10-04 02:17 | XRAY ---
CLINICAL HISTORY: FALL, GROUND LEVEL COMPARISON: 06/09/2020 TECHNIQUE: CT scan of the pelvis was performed with reformatted axial, coronal and sagittal images. One of the following dose reduction techniques were utilized for this exam: Automated exposure control, adjustment of the mA and/or kV according to patient size, use of iterative reconstruction? FINDINGS: Internal fixation of the examined right femoral shaft by an intramedullary nail with no hardware break, loosening or active osseous infection. The examined proximal femoral shaft show focal cortical thickening and irregular bony protrusion of its medial aspect, not adequately covered within the current field of view. Non united comminuted fracture of the superior aspect of the right femoral greater trochanter showing patchy sclerosis and related irregular shape bone fragments. No acute osseous fractures or hip dislocation identified. Diffuse reduced bone density. Right, coxa vara deformity. Advanced right hip osteoarthritic changes evident by exuberant marginal osteophytic lipping of its opposing articular surfaces with subcortical pseudocystic changes and sclerosis of the acetabulum and associated narrowed joint space. Mild left hip osteoarthritic changes evident by small marginal osteophytic lipping of its opposing articular surfaces with narrowed joint space. No evidence of femoral head fractures of structural collapse. No significant hip joints effusion. Mild degenerative changes of the sacroiliac joints. Mild osteitis pubis. First-degree lytic spondylolisthesis of L5 over the sacrum. Lumbar spondylosis. Normal non-contrast CT appearance of the examined muscles. Colonic diverticulosis. No diverticulitis. Aortoiliac atheromatous calcifications. No pelvic collections. IMPRESSION: 1. Internal fixation of the examined right femoral shaft with right femoral greater trochanter non-united comminuted fracture as detailed (new finding). 2. The examined proximal femoral shaft show focal cortical thickening and irregular bony protrusion of its medial aspect, not adequately covered within the current field of view. Advise clinical and prior studies correlation. 3. No acute osseous fractures or hip dislocation identified. 4. The rest of the study show stationary course. Electronically Signed by: Mahesh Guerra MD. (10/04/2023 02:11:56 EDT)
--- NOTE | 2023-10-04 02:33 | XRAY ---
CLINICAL HISTORY: FALL, GROUND LEVEL COMPARISON: Dated: 08/25/2017 TECHNIQUE: CT scan of lumbar spine done. Axial images were obtained with reformatted coronal and sagittal images and submitted for interpretation. One of the following dose reduction techniques were utilized for this exam: Automated exposure control, adjustment of the mA and/or kV according to patient size, use of iterative reconstruction FINDINGS: Exaggerated lumbar lordosis. Decreased bone mineralization. Decreased height of T12 vertebral body, vertebra plana. Normal rest of the vertebral bodies height. 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 Degenerative changes of the facet joint of L5-S1 as evidenced by marginal sclerosis. Intact vertebral bodies and neural arches. Atherosclerotic calcification of abdominal aorta noted. Segmental disc analysis level by level: L1- L2: There is no significant disc herniation or neural foraminal narrowing visualized. Central canal is unremarkable. No sign of lateral recess stenosis. Nerve roots are normal. L2- L3: There is no significant disc herniation or neural foraminal narrowing visualized. Central canal is unremarkable. No sign of lateral recess stenosis. Nerve roots are normal. L3- L4: There is no significant disc herniation or neural foraminal narrowing visualized. Central canal is unremarkable. No sign of lateral recess stenosis. Nerve roots are normal. L4- L5: There is no significant disc herniation or neural foraminal narrowing visualized. Central canal is unremarkable. Nerve roots are normal. L5- S1: There is no significant disc herniation. Narrowing of neural foramina. The central canal is unremarkable. Nerve roots are normal. No retro paraspinal soft tissue masses. No developmental canal stenosis. Intramedullary nailed noted in the right femur. IMPRESSION: 1. Exaggerated lumbar lordosis. 2. Decreased bone mineralization. 3. Decreased height of T12 vertebral body, vertebra plana. 4. 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 5. Degenerative changes of facet joint of L5-S1 as evidenced by marginal sclerosis. 6. Interval increase in osteoporosis and spondylogenerative changes. T12 vertebra plana is new finding. Electronically Signed by: Mahesh Guerra MD. (10/04/2023 02:29:32 EDT)
--- NOTE | 2023-10-04 02:33 | XRAY ---
CLINICAL HISTORY: FALL, GROUND LEVEL COMPARISON: 12/22/2014 TECHNIQUE: Multiple axial images of CT thoracic spine without contrast were submitted in bone and soft tissue windows. One of the following dose reduction techniques was utilized for this exam: Automated exposure control, adjustment of the mA and/or kV according to patient size, use of iterative reconstruction? FINDINGS: Exaggerated thoracic kyphosis. Evidence of T8 and T9 cementoplasty with related reduced vertebral bodies height. No significant structural collapse or cortical retropulsion. Compression fracture and marked structural collapse/flattening of T12 vertebral body with sagging and subchondral sclerosis of its superior vertebral end plate associated with cortical retropulsion indenting the theca. Reduced vertical height and central wedging of T2, T6 and to less extent L2 vertebral bodies. No posterior cortical retropulsion. Diffuse reduced bone density. Thoracic spondylodegenerative changes evident by marginal osteophytic lipping and multilevel subchondral sclerosis of the examined vertebral end plates with multilevel disc spaces narrowing and T1-T11 intra-discal gas luecncies. Multilevel degenerative facet arthropathy. Multilevel posterior disc protrusions indenting the theca and encroaching upon the corresponding neural exit foramina inducing variable degrees of spinal canal and neural pathways stenosis. Non united non displaced fracture of the posterior aspect of the right 10th rib with related callus formation. No retro paraspinal soft tissue masses. Hiatus hernia. Bilateral pulmonary interstitial lung changes. Cholecystectomy clips with prominent extra-hepatic biliary tracts. IMPRESSION: 1. Evidence of T8 and T9 cementoplasty with related reduced vertebral bodies height. 2. Compression fracture and marked structural collapse/flattening of T12 vertebral body with cortical retropulsion indenting the theca. 3. Reduced vertical height and central wedging of T2, T6 and to less extent L2 vertebral bodies. No posterior cortical retropulsion. 4. Diffuse reduced bone density. 5. Thoracic spondylosis with multilevel degenerative facet arthropathy and posterior disc protrusions. 6. Non united non displaced fracture of the posterior aspect of the right 10th rib with related callus formation. 7. The study shows rather progressive course. [facility] ER was called at [phone] at 2:24 AM EST, 10/04/2023 and results were verbally communicated to Dr. Martinez. Electronically Signed by: Mahesh Guerra MD. (10/04/2023 02:28:23 EDT)
[2023-10-04 06:33] LABS: Absolute Neutrophil Ct (ANC) 7.29 x10^3/uL (1.4-6.9); BASOPHIL % 0.2 % (0.0-0.4); Basophil (Absolute #) 0.02 x10^3/uL (0-0.4); Eosinophil % 0.2 % (0.00-5.0); Eosinophil (Absolute #) 0.02 x10^3/uL (0-0.5); Hemoglobin 12.6 g/dL (12.0-16.0); IMMATURE GRAN # 0.03 x10^3u/L (0.00-0.03); IMMATURE GRAN % 0.3 % (0.00-0.4); Lymphocyte (Absolute #) 0.96 x10^3/uL (1.0-4.6); Lymphocytes % 10.6 % (24.0-44.0); Mean Cell Volume 90.5 fL (78-100); Mean Corpuscular Hgb Concent. 33.2 g/dL (32-36); Mean Platelet Volume 9.8 fL (7.5-11.0); Monocyte (Absolute #) 0.75 x10^3/uL (0.0-1.3); Monocytes % 8.3 % (0.0-12.0); Neutrophil % 80.4 % (36.0-66.0); Platelet Count 204 x10^3/uL (150-450); Red Cell Distribution Width 12.6 % (11.5-14.0); White Blood Count 9.1 x10^3/uL (4.0-10.5)
[2023-10-04 06:47] LABS: ALBUMIN 4.1 g/dL (3.5-5.0); BILIRUBIN,TOTAL 1.2 mg/dL (0.2-1.3); Calcium 8.7 mg/dL (8.4-10.2); Creatinine 1 0.59 mg/dL (0.52-1.04); EST GLOMERULAR FILTRATION RATE 87.2 ML/MIN; Potassium 3.9 mmol/L (3.5-5.1); Total Protein 7.2 g/dL (6.3-8.2)
--- NOTE | 2023-10-04 08:49 | XRAY ---
Indication: Hypoxia. Comparison: July 06, 2023 Portable chest was inflated again with chronic lung markings and focal eventration right hemidiaphragm. No focal infiltrate, consolidation, or large effusion. Heart not enlarged again with arteriosclerotic tortuous aorta and small hiatal hernia. Bony thorax intact again without osteopenia, moderate degenerative changes, and multilevel T8/T9 kyphoplasty. Impression: Continued nonacute chest with chronic features.
--- NOTE | 2023-10-04 09:31 | PCM.SSS ---
History of Present Illness - Chief Complaint Chief Complaint: back pain Date: 10/04/23 History of Present Illness: is a 87 year old female with a pmhx of HLD, HTN, OA, and chronic back pain secondary to compression fx presented to ED 10/03/23 after experiencing a ground level fall at home with moderate pain subsequently. No LOC or dizziness prior. Medications & Allergies Home Medications: Home Medication List Alendronate Sodium 70 mg [Fosamax 70 MG] 70 mg PO WEEKLY 03/08/12 [History Confirmed 10/04/23] Aspirin EC 81 mg [Ecotrin 81 mg] 81 mg PO DAILY 03/08/12 [History Confirmed 10/04/23] Calcium Carbonate/Vitamin D3 [Calcium 600-Vit D3 400 Caplet] 1 tab PO DAILY 03/08/12 [History Confirmed 10/04/23] Acetaminophen [Tylenol Arthritis] 1 - 2 tab PO Q8H 10/04/23 [History Confirmed 10/04/23] Famotidine 20 mg [Pepcid 20 MG] 20 mg PO BID 10/04/23 [History Confirmed 10/04/23] Lidocaine HCl 5% Patch [Lidoderm Patch 5%] 1 patch TP DAILY 12 Days #12 patch 10/04/23 [Rx] Loperamide HCl 2 mg [Imodium 2 mg] 0 mg PO UD PRN 10/04/23 [History Confirmed 10/04/23] Metoprolol Tartrate 25 mg [Lopressor 25MG Tab] 12.5 mg PO BID 10/04/23 [History Confirmed 10/04/23] Naproxen Sodium [Wal-Proxen] 1 - 2 tab PO [id number] PRN 10/04/23 [History Confirmed 10/04/23] Simvastatin 20Mg [Zocor 20Mg] 20 mg PO QPM 10/04/23 [History Confirmed 10/04/23] Ubidecarenone [Co Q-10] 100 mg PO HS 10/04/23 [History Confirmed 10/04/23] Vit A/Vit C/Vit E/Zinc/Copper [Preservision Areds Softgel] 1 each PO DAILY 10/04/23 [History Confirmed 10/04/23] Allergies/Adverse Reactions: Allergies Allergy/AdvReac Type Severity Reaction Status Date / Time No Known Drug Allergies Allergy Unverified 10/04/23 08:20 - Past Medical History Past Medical History: Yes Neurological History: No Pertinent History ENT History: No Pertinent History Cardiac History: High Cholesterol, Hypertension Respiratory History: No Pertinent History Endocrine Medical History: No Pertinent History Musculoskelatal History: Arthritis, Osteoporosis, Other GI Medical History: GERD History: No Pertinent History Pyscho-Social History: No Pertinent History Reproductive Disorders: No Pertinent History Comment: h/o compression fractures to spine, chronic mid to upper center back pain - Female History Are you now?: No - Past Surgical History Past Surgical History: Yes Neuro Surgical History: No Pertinent History Cardiac History: No Pertinent History Respiratory Surgery: No Pertinent History GI Surgical History: Appendectomy, Cholecystectomy Genitourinary Surgical Hx: Other Musculskeletal Surgical Hx: No Pertinent History Female Surgical History: Hysterectomy Other Surgical History: kidney stones - Social History Smoking Status: Never smoker Exposure to second hand smoke: No Alcohol: None Drug Use: none - Social Determinants of Health Will the patient participate in the screening: Yes Do you worry about a steady place to live?: No Do you have any problems with any of the following?: No known problems In the past 12 months,have you had to go without utilities?: No Have you or anyone in your house had to go without enough: No Transportation Issues: No Has anyone in your support network made you feel unsafe?: No Does the patient want assistance with any of the above?: No - Physical Exam Vital Signs: Vital Signs - 24 hr Temp Pulse Resp BP BP Pulse Ox 10/04/23 08:03 97.1 F 85 18 179/81 97 10/04/23 07:30 70 18 131/65 96 10/04/23 07:01 96 10/04/23 07:00 90 20 131/75 95 10/04/23 06:30 82 18 138/91 96 10/04/23 06:09 92 H 20 88 L 10/04/23 06:00 95 H 16 144/81 92 L 10/04/23 05:30 91 H 18 133/78 97 10/04/23 05:00 90 16 138/80 96 10/04/23 04:58 90 18 136/79 96 10/04/23 04:31 89 20 132/78 90 L 10/04/23 04:00 90 18 144/90 97 10/04/23 03:01 159/93 97 10/04/23 02:00 81 18 151/81 97 10/04/23 01:30 79 18 147/82 96 10/04/23 00:00 80 20 161/91 93 L 10/03/23 23:51 97.8 F 83 20 96 Results - Labs Lab/Micro Results: Lab Results-Last 24 Hours 10/04/23 10/04/23 Range/Units 06:30 06:30 WBC 9.1 (4.0-10.5) x10^3/uL RBC 4.20 (4.1-5.4) x10^6/uL Hgb 12.6 (12.0-16.0) g/dL Hct 38.0 (35-47) % MCV 90.5 (78-100) fL MCH 30.0 (26-32) pg MCHC 33.2 (32-36) g/dL RDW 12.6 (11.5-14.0) % Plt Count 204 (150-450) x10^3/uL MPV 9.8 (7.5-11.0) fL Gran % 80.4 H (36.0-66.0) % Immature Gran % (Auto) 0.3 (0.00-0.4) % Nucleat RBC Rel Count 0.0 (0.00-0.1) % Eos # (Auto) 0.02 (0-0.5) x10^3/uL Immature Gran # (Auto) 0.03 (0.00-0.03) x10^3u/L Absolute Lymphs (auto) 0.96 L (1.0-4.6) x10^3/uL Absolute Monos (auto) 0.75 (0.0-1.3) x10^3/uL Absolute Nucleated RBC 0.00 (0.00-0.01) x10^3u/L Lymphocytes % 10.6 L (24.0-44.0) % Monocytes % 8.3 (0.0-12.0) % Eosinophils % 0.2 (0.00-5.0) % Basophils % 0.2 (0.0-0.4) % Absolute Granulocytes 7.29 H (1.4-6.9) x10^3/uL Basophils # 0.02 (0-0.4) x10^3/uL Sodium 135 (135-145) mmol/L Potassium 3.9 (3.5-5.1) mmol/L Chloride 105 (98-107) mmol/L Carbon Dioxide 22 (22-30) mmol/L Anion Gap 12.0 (5-15) MEQ/L BUN 12 (7-17) mg/dL Creatinine 0.59 (0.52-1.04) mg/dL Estimated GFR 87.2 ML/MIN Glucose 131 H (74-106) mg/dL Calcium 8.7 (8.4-10.2) mg/dL Total Bilirubin 1.20 (0.2-1.3) mg/dL AST 24 (14-36) U/L ALT 15 (0-35) U/L Alkaline Phosphatase 70 (38-126) U/L Serum Total Protein 7.2 (6.3-8.2) g/dL Albumin 4.1 (3.5-5.0) g/dL - Radiology Impressions Radiology Exams & Impressions: Radiology Procedures Category Date Time Status CHEST 1 VIEW (PORTABLE) Stat Exams 10/04/23 06:11 Completed LUMBAR SPINE W/O [CT] Stat Exams 10/04/23 00:08 Completed PELVIS WITHOUT CONTRAST [CT] Stat Exams 10/04/23 00:08 Completed THORACIC SPINE W/O CONTRAST [CT] Stat Exams 10/04/23 00:08 Completed - Other Procedures and Tests Respiratory Therapy 10/04/23 08:02 Oxygen Nasal Cannula 2 lpm Respiratory Therapy Consult ONCE Hospital Summary - Vitals & Intake/Output Vital Signs: Vital Signs Temperature 97.1 F 10/04/23 08:03 Pulse Rate 85 10/04/23 08:03 Respiratory Rate 18 10/04/23 08:03 Blood Pressure 179/81 10/04/23 08:03 O2 Sat by Pulse Oximetry 97 10/04/23 08:03 Intake & Output: Intake & Output 10/01/23 10/02/23 10/03/23 10/04/23 11:59 11:59 11:59 11:59 Weight 44.4 kg - Lab Result Diagrams: 10/04/23 06:30 10/04/23 06:30 Lab Results-Last 24 Hrs: Lab Results-Last 24 Hours 10/04/23 10/04/23 Range/Units 06:30 06:30 WBC 9.1 (4.0-10.5) x10^3/uL RBC 4.20 (4.1-5.4) x10^6/uL Hgb 12.6 (12.0-16.0) g/dL Hct 38.0 (35-47) % MCV 90.5 (78-100) fL MCH 30.0 (26-32) pg MCHC 33.2 (32-36) g/dL RDW 12.6 (11.5-14.0) % Plt Count 204 (150-450) x10^3/uL MPV 9.8 (7.5-11.0) fL Gran % 80.4 H (36.0-66.0) % Immature Gran % (Auto) 0.3 (0.00-0.4) % Nucleat RBC Rel Count 0.0 (0.00-0.1) % Eos # (Auto) 0.02 (0-0.5) x10^3/uL Immature Gran # (Auto) 0.03 (0.00-0.03) x10^3u/L Absolute Lymphs (auto) 0.96 L (1.0-4.6) x10^3/uL Absolute Monos (auto) 0.75 (0.0-1.3) x10^3/uL Absolute Nucleated RBC 0.00 (0.00-0.01) x10^3u/L Lymphocytes % 10.6 L (24.0-44.0) % Monocytes % 8.3 (0.0-12.0) % Eosinophils % 0.2 (0.00-5.0) % Basophils % 0.2 (0.0-0.4) % Absolute Granulocytes 7.29 H (1.4-6.9) x10^3/uL Basophils # 0.02 (0-0.4) x10^3/uL Sodium 135 (135-145) mmol/L Potassium 3.9 (3.5-5.1) mmol/L Chloride 105 (98-107) mmol/L Carbon Dioxide 22 (22-30) mmol/L Anion Gap 12.0 (5-15) MEQ/L BUN 12 (7-17) mg/dL Creatinine 0.59 (0.52-1.04) mg/dL Estimated GFR 87.2 ML/MIN Glucose 131 H (74-106) mg/dL Calcium 8.7 (8.4-10.2) mg/dL Total Bilirubin 1.20 (0.2-1.3) mg/dL AST 24 (14-36) U/L ALT 15 (0-35) U/L Alkaline Phosphatase 70 (38-126) U/L Serum Total Protein 7.2 (6.3-8.2) g/dL Albumin 4.1 (3.5-5.0) g/dL - Radiology Exams Ordered Rad Exams-Entire Visit: Radiology Procedures Category Date Time Status CHEST 1 VIEW (PORTABLE) Stat Exams 10/04/23 06:11 Completed LUMBAR SPINE W/O [CT] Stat Exams 10/04/23 00:08 Completed PELVIS WITHOUT CONTRAST [CT] Stat Exams 10/04/23 00:08 Completed THORACIC SPINE W/O CONTRAST [CT] Stat Exams 10/04/23 00:08 Completed - Procedures and Test Procedures and Tests throughout Hospitalization: Therapy Orders & Screens 10/04/23 08:02 Oxygen Nasal Cannula 2 lpm Comment: Respiratory Therapy Consult ONCE Comment: Reason For Exam: 10/04/23 08:27 OT Screen per Nursing Assess ONCE Comment: Protocol Order Physician Instructions: Greater than 3 points order OT Admission Screening Reason For Exam: Triggered on Admission Diagnosis: back pain Open Wound/Cellutlitis/Pressure Ulcers: No Acute Fx/ORIF/Change in wt bearing status: No Severe MUSCULOSKELETAL pain: Yes: back pain ADL Dysfunction: Yes: uses walker, back pain Acute CVA w/Hemiparesis/Hemiplegia: No Decreased Functional Mobility/Strength: Yes: back pain Sprain/Strain: No Acute Post-op Mobility Dysfunction: No Total Points: 9 PT Screen per Nursing Assess ONCE Comment: Protocol Order Physician Instructions: Greater than 3 points order PT Admission Screenin Reason For Exam: Triggered on Admission Diagnosis: back pain Open Wound/Cellutlitis/Pressure Ulcers: No Acute Fx/ORIF/Change in wt bearing status: No Severe MUSCULOSKELETAL pain: Yes: back pain ADL Dysfunction: Yes: uses walker, back pain Acute CVA w/Hemiparesis/Hemiplegia: No Decreased Functional Mobility/Strength: Yes: back pain Sprain/Strain: No Acute Post-op Mobility Dysfunction: No Total Points: 9 - Discharge Disposition: Home, Self-Care Condition: Stable Prescriptions: New Lidocaine HCl 5% Patch [Lidoderm Patch 5%] 1 patch TP DAILY 12 Days #12 patch No Action Calcium Carbonate/Vitamin D3 [Calcium 600-Vit D3 400 Caplet] 1 tab PO DAILY Aspirin EC 81 mg [Ecotrin 81 mg] 81 mg PO DAILY Alendronate Sodium 70 mg [Fosamax 70 MG] 70 mg PO WEEKLY Ubidecarenone [Co Q-10] 100 mg PO HS Vit A/Vit C/Vit E/Zinc/Copper [Preservision Areds Softgel] 1 each PO DAILY Famotidine 20 mg [Pepcid 20 MG] 20 mg PO BID Metoprolol Tartrate 25 mg [Lopressor 25MG Tab] 12.5 mg PO BID Loperamide HCl 2 mg [Imodium 2 mg] 0 mg PO UD PRN PRN Reason: Diarrhea Simvastatin 20Mg [Zocor 20Mg] 20 mg PO QPM Acetaminophen [Tylenol Arthritis] 1 - 2 tab PO Q8H Naproxen Sodium [Wal-Proxen] 1 - 2 tab PO [id number] PRN PRN Reason: Pain Follow up with: JENIFER RESENDIZ MD [Primary Care Provider] -
[2023-10-04] MEDS ORDERED: NAPROXEN SODIUM 220 MG PO PRN (09:41)
[2023-10-04] MEDS ORDERED: Naprosyn 500 MG PO PRN (09:54)
[2023-10-04] MEDS ORDERED: MEDICATION INTERVENTION MC SCH (10:00)
[2023-10-04] MEDS ORDERED: NON-FORMULARY ITEM (Calcium Carbonate/Vitamin D3 [Calcium 600-Vit D3 400 Caplet] 1 EACH Ta PO SCH (10:00)
[2023-10-04] MEDS ORDERED: NON-FORMULARY ITEM (Vit A/Vit C/Vit E/Zinc/Copper [Preservision Areds Softgel] 1 EACH Caps PO SCH (10:00)
[2023-10-04] MEDS: Pepcid 20 MG PO SCH (11:01)
[2023-10-04] MEDS: Lopressor 25MG Tab PO SCH (11:02)
[2023-10-04] MEDS: Ocuvite Tablet PO SCH (11:02)
[2023-10-04] MEDS: Calcium 500MG W/Vit D Tablet PO SCH (11:02)
--- NOTE | 2023-10-04 11:06 | XRAY ---
Indication: Fracture trochanter. Comparison: None 2 view right femur demonstrates osteopenia and old femur shaft fracture with intact intramedullary [place]/proximal transverse screw. Fracture also demonstrates small posterior medial bony exostosis spurring. North well-circumscribed greater trochanter heterotopic ossifications either degenerative versus old injury. No other bony, articular, or soft tissue abnormalities.
--- NOTE | 2023-10-04 11:34 | CONS ---
CONSULT DATE: 10/04/2023 HISTORY: The patient was seen and examined and the chart was reviewed. The patient sustained a fall last night and was seen in the ER and admitted. She had multiple CT scans performed. There was a question on one of the CT scans regarding nonossified piece of bone at the tip of the greater trochanter. The patient does have a history of a previous subtrochanteric fracture, which required an IM nail. The patient is having no pain or tenderness at the right hip or along the right femur. She has excellent range of motion of the hip, knee, ankle and femur without tenderness. There is some mild tenderness along T12 where the patient has a known acute on chronic T12 compression fracture, which is being treated by her primary physician. She has a significant medical history, which is positive for osteoporosis, fall, hypertension, gastroesophageal reflux disease and osteoarthritis. MEDICATIONS: Her home medications includes: Naproxen, [id number] Tylenol, Lopressor 25 mg b.i.d., Zocor 20 mg daily, Imodium 2 mg PRN, Fosamax 70 mg weekly, CoQ-10 at bedtime 100 mg, Preservision daily, Pepcid 20 mg b.i.d., calcium with vitamin D3 one tablet daily. The patient also takes an 81 mg aspirin and uses lidocaine patch on her chronic back pain. ALLERGIES: NKDA. PHYSICAL EXAMINATION: Pertinent physical examination demonstrates that there is no tenderness to palpation along the right lower extremity, right ankle, right knee and right hip. She has full range of motion of the hip, knee and ankle. There is no tenderness to palpation again over the greater trochanter. LAB DATA AND TESTS: The patient does have a CT scan of the head, cervical spine, thoracic spine, lumbar spine and pelvis and again redemonstration of the well-known T12 compression fracture is seen. X-rays of the right femur performed today on 10/04/2023 showed a well healed fracture with internal fixation and good position. There is some heterotopic ossification noted at the tip of the greater trochanter. IMPRESSION: Heterotopic ossification post IM nailing right subtrochanteric fracture. PLAN: The patient may ambulate to tolerance, weight bearing as tolerated. The patient should continue seeing her previously treating physician for compression fracture. Thank you for allowing me to see this patient and participate in her care. We will re-evaluate her as needed and at this time will sign off the case.
--- NOTE | 2023-10-04 13:12 | PCM.HP ---
History of Present Illness - Chief Complaint Chief Complaint: back pain Date: 10/04/23 History of Present Illness: is a 87 year old female with a pmhx of HLD and HTN as well as h/o compression fractures to the spine presented to ED 10/03/23 after experiencing a ground level fall at home and subsequential pain. Patient states she fell backward after she stumbled on carpeted [place]. No prior dizziness. No LOC. No head trauma. CT imaging with chronic findings. Ortho consulted as there was a question on one of the "CT scans regarding nonossified piece of bone at the tip of the greater trochanter documented as a new finding. The patient does have a history of a previous subtrochanteric fracture, which required an IM nail. The patient is having no pain or tenderness at the right hip or along the right femur. She has excellent range of motion of the hip, knee, ankle and femur without tenderness. There is some mild tenderness along T12 where the patient has a known acute on chronic T12 compression fracture, which is being treated by her primary physician." Patient became hypoxic in the ED prompting observation. DDimer is elevated 12.20, all other labs remain unremarkable. CT Chest w/ contrast to r/o PE is pending. Patient is still requiring 2L of oxygen. Therapeutic Lovenox initiated, daily dosing due to kidney function. - Review of Systems Constitutional: No Symptoms Eyes: No Symptoms Ears, Nose, & Throat: No Symptoms Respiratory: Short Of Breath, Other (2L oxygen) Cardiac: No Symptoms Abdominal/Gastrointestinal: No Symptoms Genitourinary Symptoms: No Symptoms Musculoskeletal: Back Pain, Joint Pain Neurological: No Symptoms Psychological: No Symptoms Endocrine: No Symptoms Hematologic/Lymphatic: No Symptoms Medications & Allergies Home Medications: Home Medication List Alendronate Sodium 70 mg [Fosamax 70 MG] 70 mg PO WEEKLY 03/08/12 [History Confirmed 10/04/23] Aspirin EC 81 mg [Ecotrin 81 mg] 81 mg PO DAILY 03/08/12 [History Confirmed 10/04/23] Calcium Carbonate/Vitamin D3 [Calcium 600-Vit D3 400 Caplet] 1 tab PO DAILY 03/08/12 [History Confirmed 10/04/23] Acetaminophen [Tylenol Arthritis] 1 - 2 tab PO Q8H 10/04/23 [History Confirmed 10/04/23] Famotidine 20 mg [Pepcid 20 MG] 20 mg PO BID 10/04/23 [History Confirmed 10/04/23] Lidocaine HCl 5% Patch [Lidoderm Patch 5%] 1 patch TP DAILY 12 Days #12 patch 10/04/23 [Rx] Loperamide HCl 2 mg [Imodium 2 mg] 0 mg PO UD PRN 10/04/23 [History Confirmed 10/04/23] Metoprolol Tartrate 25 mg [Lopressor 25MG Tab] 12.5 mg PO BID 10/04/23 [History Confirmed 10/04/23] Naproxen Sodium [Wal-Proxen] 1 - 2 tab PO [id number] PRN 10/04/23 [History Confirmed 10/04/23] Simvastatin 20Mg [Zocor 20Mg] 20 mg PO QPM 10/04/23 [History Confirmed 10/04/23] Ubidecarenone [Co Q-10] 100 mg PO HS 10/04/23 [History Confirmed 10/04/23] Vit A/Vit C/Vit E/Zinc/Copper [Preservision Areds Softgel] 1 each PO DAILY 10/04/23 [History Confirmed 10/04/23] Allergies/Adverse Reactions: Allergies Allergy/AdvReac Type Severity Reaction Status Date / Time No Known Drug Allergies Allergy Unverified 10/04/23 08:20 - Past Medical History Past Medical History: Yes Neurological History: No Pertinent History ENT History: No Pertinent History Cardiac History: High Cholesterol, Hypertension Respiratory History: No Pertinent History Endocrine Medical History: No Pertinent History Musculoskelatal History: Arthritis, Osteoporosis, Other GI Medical History: GERD History: No Pertinent History Pyscho-Social History: No Pertinent History Reproductive Disorders: No Pertinent History Comment: h/o compression fractures to spine, chronic mid to upper center back pain - Female History Are you now?: No - Past Surgical History Past Surgical History: Yes Neuro Surgical History: No Pertinent History Cardiac History: No Pertinent History Respiratory Surgery: No Pertinent History GI Surgical History: Appendectomy, Cholecystectomy Genitourinary Surgical Hx: Other Musculskeletal Surgical Hx: No Pertinent History Female Surgical History: Hysterectomy Other Surgical History: kidney stones - Social History Smoking Status: Never smoker Exposure to second hand smoke: No Alcohol: None Drug Use: none - Social Determinants of Health Will the patient participate in the screening: Yes Do you worry about a steady place to live?: No Do you have any problems with any of the following?: No known problems In the past 12 months,have you had to go without utilities?: No Have you or anyone in your house had to go without enough: No Transportation Issues: No Has anyone in your support network made you feel unsafe?: No Does the patient want assistance with any of the above?: No - Physical Exam Vital Signs: Vital Signs - 24 hr Temp Pulse Resp BP BP Pulse Ox 10/04/23 12:00 98.4 F 85 14 143/67 97 10/04/23 09:32 85 16 96 10/04/23 08:03 97.1 F 85 18 179/81 97 10/04/23 07:30 70 18 131/65 96 10/04/23 07:01 96 10/04/23 07:00 90 20 131/75 95 10/04/23 06:30 82 18 138/91 96 10/04/23 06:09 92 H 20 88 L 10/04/23 06:00 95 H 16 144/81 92 L 10/04/23 05:30 91 H 18 133/78 97 10/04/23 05:00 90 16 138/80 96 10/04/23 04:58 90 18 136/79 96 10/04/23 04:31 89 20 132/78 90 L 10/04/23 04:00 90 18 144/90 97 10/04/23 03:01 159/93 97 10/04/23 02:00 81 18 151/81 97 10/04/23 01:30 79 18 147/82 96 10/04/23 00:00 80 20 161/91 93 L 10/03/23 23:51 97.8 F 83 20 96 General Appearance: no apparent distress Neurologic Exam: alert, oriented x 3, cooperative Eye Exam: PERRL/EOMI Ears, Nose, Throat Exam: moist mucous membranes Neck Exam: normal inspection, full range of motion Respiratory Exam: normal breath sounds, lungs clear Cardiovascular Exam: regular rate/rhythm, normal heart sounds Gastrointestinal/Abdomen Exam: soft, normal bowel sounds Pelvic Exam: not done Rectal Exam: deferred Back Exam: vertebral tenderness (thoracic and lumbar region), decreased range of motion Extremity Exam: limited range of motion Skin Exam: normal color Results - Labs Lab/Micro Results: Lab Results-Last 24 Hours 10/04/23 10/04/23 10/04/23 Range/Units 06:30 06:30 12:00 WBC 9.1 (4.0-10.5) x10^3/uL RBC 4.20 (4.1-5.4) x10^6/uL Hgb 12.6 (12.0-16.0) g/dL Hct 38.0 (35-47) % MCV 90.5 (78-100) fL MCH 30.0 (26-32) pg MCHC 33.2 (32-36) g/dL RDW 12.6 (11.5-14.0) % Plt Count 204 (150-450) x10^3/uL MPV 9.8 (7.5-11.0) fL Gran % 80.4 H (36.0-66.0) % Immature Gran % (Auto) 0.3 (0.00-0.4) % Nucleat RBC Rel Count 0.0 (0.00-0.1) % Eos # (Auto) 0.02 (0-0.5) x10^3/uL Immature Gran # (Auto) 0.03 (0.00-0.03) x10^3u/L Absolute Lymphs (auto) 0.96 L (1.0-4.6) x10^3/uL Absolute Monos (auto) 0.75 (0.0-1.3) x10^3/uL Absolute Nucleated RBC 0.00 (0.00-0.01) x10^3u/L Lymphocytes % 10.6 L (24.0-44.0) % Monocytes % 8.3 (0.0-12.0) % Eosinophils % 0.2 (0.00-5.0) % Basophils % 0.2 (0.0-0.4) % Absolute Granulocytes 7.29 H (1.4-6.9) x10^3/uL Basophils # 0.02 (0-0.4) x10^3/uL D-Dimer 12.20 H* (0.0-0.50) mg/L Sodium 135 (135-145) mmol/L Potassium 3.9 (3.5-5.1) mmol/L Chloride 105 (98-107) mmol/L Carbon Dioxide 22 (22-30) mmol/L Anion Gap 12.0 (5-15) MEQ/L BUN 12 (7-17) mg/dL Creatinine 0.59 (0.52-1.04) mg/dL Estimated GFR 87.2 ML/MIN Glucose 131 H (74-106) mg/dL Calcium 8.7 (8.4-10.2) mg/dL Total Bilirubin 1.20 (0.2-1.3) mg/dL AST 24 (14-36) U/L ALT 15 (0-35) U/L Alkaline Phosphatase 70 (38-126) U/L Serum Total Protein 7.2 (6.3-8.2) g/dL Albumin 4.1 (3.5-5.0) g/dL - Radiology Impressions Radiology Exams & Impressions: Radiology Procedures Category Date Time Status CHEST 1 VIEW (PORTABLE) Stat Exams 10/04/23 06:11 Completed CHEST WITH CONTRAST [CT] Stat Exams 10/04/23 12:09 Ordered FEMUR Stat Exams 10/04/23 10:17 Completed LUMBAR SPINE W/O [CT] Stat Exams 10/04/23 00:08 Completed PELVIS WITHOUT CONTRAST [CT] Stat Exams 10/04/23 00:08 Completed THORACIC SPINE W/O CONTRAST [CT] Stat Exams 10/04/23 00:08 Completed - Other Procedures and Tests Respiratory Therapy 10/04/23 08:02 Oxygen Nasal Cannula 2 lpm 10/04/23 11:05 Qualify for Home Oxygen ROUTINE Assessment/Plan (1) Hypoxia Current Visit: Yes Status: Acute Assessment & Plan: -Supplemental oxygen with spo2 goal >92% -CT chest to r/o PE -Therapeutic lovenox -DDimer elevated Code(s): R09.02 - HYPOXEMIA (2) Compression fracture of thoracic vertebra Current Visit: Yes Status: Acute Onset Date: ~08/26/17 Assessment & Plan: -Ortho consulted with recs, agree with plan "patient may ambulate to tolerance, weight bearing as tolerated. The patient should continue seeing her previously treating physician for compression fracture." -CT scan of the head, cervical spine, thoracic spine, lumbar spine and pelvis performed 06/09/20 with redemonstration of the well-known T12 compression fracture -X-rays of the right femur performed today on 10/04/2023 demonstrate a well healed fracture with internal fixation and good position. Also noted - heterotopic ossification noted at the tip of the greater trochanter. -Pain controlled with naproxen - will continue - Code(s): S22.000A - WEDGE COMPRESSION FRACTURE OF UNSP THORACIC VERTEBRA, INIT (3) Fall Current Visit: Yes Status: Acute Assessment & Plan: -see above -PT/OT VTE: lovenox Dispo: 1-2 days Code(s): W19.XXXA - UNSPECIFIED FALL, INITIAL ENCOUNTER (4) HTN (hypertension) Current Visit: Yes Status: Acute Assessment & Plan: -continue home meds, stable Code(s): I10 - ESSENTIAL (PRIMARY) HYPERTENSION (5) HLD (hyperlipidemia) Current Visit: Yes Status: Acute Assessment & Plan: -continue statin Code(s): E78.5 - HYPERLIPIDEMIA, UNSPECIFIED
[2023-10-04] MEDS: ENOXAPARIN SODIUM SQ SCH (16:16)
--- NOTE | 2023-10-04 16:16 | XRAY ---
Indication: Hypoxia. Pulmonary embolus. Multiple contiguous axial images obtained through the chest using 80 cc of Isovue-370 contrast and PE protocol. Comparison: None Good opacification pulmonary arteries to include the lobar and segmental branches. No pulmonary embolus. Heart is borderline enlarged with scattered coronary calcifications. Aorta mildly arteriosclerotic without aneurysm/dissection. No pathologic mediastinal/hilar lymphadenopathy. Moderate-sized hiatal hernia with herniated omental fat. Lungs demonstrates mild diffuse pulmonary emphysema, diffuse bilateral scattered fibrosis/scarring, and mild bilateral dependent atelectasis. No suspicious pulmonary mass/nodule, infiltrate, effusion, or pneumothorax. Bony thorax demonstrates osteopenia, moderate multilevel thoracic degenerative spondylosis, remote multilevel thoracolumbar compression fractures with subsequent accentuated thoracic kyphosis, and T8/T9 kyphoplasty. Limited upper abdomen unremarkable. Impression: 1. Negative pulmonary embolus. No acute cardiopulmonary abnormalities. 2. Chronic findings including pulmonary emphysema, pulmonary fibrosis/scarring, borderline cardiomegaly, arteriosclerotic disease, hiatal hernia with herniated omental fat, and chronic bony findings.
[2023-10-04] MEDS: ZOCOR 20MG PO SCH (21:03)
[2023-10-04] MEDS ORDERED: NON-FORMULARY ITEM (Ubidecarenone [Co Q-10] 100 MG Capsule) PO SCH (22:00)
[2023-10-05 05:55] LABS: Absolute Neutrophil Ct (ANC) 9.35 x10^3/uL (1.4-6.9); BASOPHIL % 0.2 % (0.0-0.4); Basophil (Absolute #) 0.02 x10^3/uL (0-0.4); Eosinophil % 0.3 % (0.00-5.0); Eosinophil (Absolute #) 0.03 x10^3/uL (0-0.5); Hematocrit 39.2 % (35-47); Hemoglobin 12.9 g/dL (12.0-16.0); IMMATURE GRAN # 0.03 x10^3u/L (0.00-0.03); IMMATURE GRAN % 0.3 % (0.00-0.4); Lymphocyte (Absolute #) 0.55 x10^3/uL (1.0-4.6); Lymphocytes % 5.3 % (24.0-44.0); Mean Corpuscular Hemoglobin 29.9 pg (26-32); Mean Corpuscular Hgb Concent. 32.9 g/dL (32-36); Mean Platelet Volume 10.3 fL (7.5-11.0); Monocyte (Absolute #) 0.43 x10^3/uL (0.0-1.3); Monocytes % 4.1 % (0.0-12.0); Neutrophil % 89.8 % (36.0-66.0); Platelet Count 220 x10^3/uL (150-450); Red Blood Count 4.31 x10^6/uL (4.1-5.4); Red Cell Distribution Width 12.8 % (11.5-14.0); White Blood Count 10.4 x10^3/uL (4.0-10.5)
[2023-10-05 06:11] LABS: ALBUMIN 4.4 g/dL (3.5-5.0); ANION GAP 13.3 MEQ/L (5-15); BILIRUBIN,TOTAL 1.5 mg/dL (0.2-1.3); Creatinine 1 0.59 mg/dL (0.52-1.04); EST GLOMERULAR FILTRATION RATE 86.6 ML/MIN; Potassium 4.2 mmol/L (3.5-5.1); Total Protein 7.9 g/dL (6.3-8.2)
--- NOTE | 2023-10-05 06:26 | PCM.DS ---
Discharge Summary Date of Admission: 10/04/23 07:51 Date of Discharge: 10/05/23 Admitting Physician: FRANKIE ROLLE MD Consults: Consults on Case 10/04/23 09:32 Consult Ortho ROUTINE 10/04/23 09:37 Consult Ortho ROUTINE Primary Care Provider: JENIFER RESENDIZ PHILLIP Allergies Allergies No Known Drug Allergies Allergy (Unverified 10/04/23 08:20) Hospital Summary - Hospital Course Hospital Course: is a 87 year old female with a pmhx of HLD and HTN as well as h/o compression fractures to the spine presented to ED 10/03/23 after experiencing a ground level fall at home and subsequential pain. Patient states she fell backward after she stumbled on carpeted [place]. No prior dizziness. No LOC. No head trauma. CT imaging with chronic findings. Ortho consulted as there was a question on one of the "CT scans regarding nonossified piece of bone at the tip of the greater trochanter documented as a new finding. The patient does have a history of a previous subtrochanteric fracture, which required an IM nail. The patient is having no pain or tenderness at the right hip or along the right femur. She has excellent range of motion of the hip, knee, ankle and femur without tenderness. There is some mild tenderness along T12 where the patient has a known acute on chronic T12 compression fracture, which is being treated by her primary physician." Patient became hypoxic in the ED prompting observation. DDimer is elevated 12.20, all other labs remain unremarkable. CT Chest w/ contrast negative for PE. Demonstrates chronic finding of including pulmonary emphysema, pulmonary fibrosis/scarring, borderline cardiomegaly, arteriosclerotic disease, hiatal hernia with herniated omental fat, and chronic bony findings. Patient continue to require oxygen with ambulation of 3L of oxygen. We will set up home oxygen prior to discharge. Discharge Note New Diagnosis: Fall/hypoxia New Medications: Home oxygen Follow Up: PCP/Pulm Latest Assessment & Plan (1) Hypoxia Current Visit: Yes Status: Acute Assessment & Plan: -Supplemental oxygen with spo2 goal >92% -CT chest to r/o PE -Therapeutic lovenox -DDimer elevated Code(s): R09.02 - HYPOXEMIA (2) Compression fracture of thoracic vertebra Current Visit: Yes Status: Acute Onset Date: ~08/26/17 Assessment & Plan: -Ortho consulted with recs, agree with plan "patient may ambulate to tolerance, weight bearing as tolerated. The patient should continue seeing her previously treating physician for compression fracture." -CT scan of the head, cervical spine, thoracic spine, lumbar spine and pelvis performed 06/09/20 with redemonstration of the well-known T12 compression fracture -X-rays of the right femur performed today on 10/04/2023 demonstrate a well healed fracture with internal fixation and good position. Also noted - heterotopic ossification noted at the tip of the greater trochanter. -Pain controlled with naproxen - will continue - Code(s): S22.000A - WEDGE COMPRESSION FRACTURE OF UNSP THORACIC VERTEBRA, INIT (3) Fall Current Visit: Yes Status: Acute Assessment & Plan: -see above -PT/OT I spent 35 minutes [id number] with the patient on the day of discharge performing discharge exam, discussing hospital stay and discharge instructions with patient and caregivers, preparation of discharge records, prescriptions & referral forms and addressing any questions/concerns the patient had as documented above. - Vitals & Intake/Output Vital Signs: Vital Signs Temperature 97.7 F 10/05/23 05:06 Pulse Rate 86 10/05/23 05:06 Respiratory Rate 18 10/05/23 05:06 Blood Pressure 149/80 10/05/23 05:06 O2 Sat by Pulse Oximetry 95 10/05/23 05:06 Intake & Output: Intake & Output 10/02/23 10/03/23 10/04/23 10/05/23 11:59 11:59 11:59 11:59 Intake Total 700 Balance 700 Weight 44.4 kg - Lab Result Diagrams: 10/05/23 05:42 10/05/23 05:42 Lab Results-Last 24 Hrs: Lab Results-Last 24 Hours 10/04/23 10/04/23 10/04/23 Range/Units 06:30 06:30 12:00 WBC 9.1 (4.0-10.5) x10^3/uL RBC 4.20 (4.1-5.4) x10^6/uL Hgb 12.6 (12.0-16.0) g/dL Hct 38.0 (35-47) % MCV 90.5 (78-100) fL MCH 30.0 (26-32) pg MCHC 33.2 (32-36) g/dL RDW 12.6 (11.5-14.0) % Plt Count 204 (150-450) x10^3/uL MPV 9.8 (7.5-11.0) fL Gran % 80.4 H (36.0-66.0) % Immature Gran % (Auto) 0.3 (0.00-0.4) % Nucleat RBC Rel Count 0.0 (0.00-0.1) % Eos # (Auto) 0.02 (0-0.5) x10^3/uL Immature Gran # (Auto) 0.03 (0.00-0.03) x10^3u/L Absolute Lymphs (auto) 0.96 L (1.0-4.6) x10^3/uL Absolute Monos (auto) 0.75 (0.0-1.3) x10^3/uL Absolute Nucleated RBC 0.00 (0.00-0.01) x10^3u/L Lymphocytes % 10.6 L (24.0-44.0) % Monocytes % 8.3 (0.0-12.0) % Eosinophils % 0.2 (0.00-5.0) % Basophils % 0.2 (0.0-0.4) % Absolute Granulocytes 7.29 H (1.4-6.9) x10^3/uL Basophils # 0.02 (0-0.4) x10^3/uL D-Dimer 12.20 H* (0.0-0.50) mg/L Sodium 135 (135-145) mmol/L Potassium 3.9 (3.5-5.1) mmol/L Chloride 105 (98-107) mmol/L Carbon Dioxide 22 (22-30) mmol/L Anion Gap 12.0 (5-15) MEQ/L BUN 12 (7-17) mg/dL Creatinine 0.59 (0.52-1.04) mg/dL Estimated GFR 87.2 ML/MIN Glucose 131 H (74-106) mg/dL Calcium 8.7 (8.4-10.2) mg/dL Total Bilirubin 1.20 (0.2-1.3) mg/dL AST 24 (14-36) U/L ALT 15 (0-35) U/L Alkaline Phosphatase 70 (38-126) U/L Serum Total Protein 7.2 (6.3-8.2) g/dL Albumin 4.1 (3.5-5.0) g/dL 10/05/23 10/05/23 Range/Units 05:42 05:42 WBC 10.4 (4.0-10.5) x10^3/uL RBC 4.31 (4.1-5.4) x10^6/uL Hgb 12.9 (12.0-16.0) g/dL Hct 39.2 (35-47) % MCV 91.0 (78-100) fL MCH 29.9 (26-32) pg MCHC 32.9 (32-36) g/dL RDW 12.8 (11.5-14.0) % Plt Count 220 (150-450) x10^3/uL MPV 10.3 (7.5-11.0) fL Gran % 89.8 H (36.0-66.0) % Immature Gran % (Auto) 0.3 (0.00-0.4) % Nucleat RBC Rel Count 0.0 (0.00-0.1) % Eos # (Auto) 0.03 (0-0.5) x10^3/uL Immature Gran # (Auto) 0.03 (0.00-0.03) x10^3u/L Absolute Lymphs (auto) 0.55 L (1.0-4.6) x10^3/uL Absolute Monos (auto) 0.43 (0.0-1.3) x10^3/uL Absolute Nucleated RBC 0.00 (0.00-0.01) x10^3u/L Lymphocytes % 5.3 L (24.0-44.0) % Monocytes % 4.1 (0.0-12.0) % Eosinophils % 0.3 (0.00-5.0) % Basophils % 0.2 (0.0-0.4) % Absolute Granulocytes 9.35 H (1.4-6.9) x10^3/uL Basophils # 0.02 (0-0.4) x10^3/uL D-Dimer (0.0-0.50) mg/L Sodium 134 L (135-145) mmol/L Potassium 4.2 (3.5-5.1) mmol/L Chloride 102 (98-107) mmol/L Carbon Dioxide 23 (22-30) mmol/L Anion Gap 13.3 (5-15) MEQ/L BUN 11 (7-17) mg/dL Creatinine 0.59 (0.52-1.04) mg/dL Estimated GFR 86.6 ML/MIN Glucose 156 H (74-106) mg/dL Calcium 9.0 (8.4-10.2) mg/dL Total Bilirubin 1.50 H (0.2-1.3) mg/dL AST 34 (14-36) U/L ALT 15 (0-35) U/L Alkaline Phosphatase 55 (38-126) U/L Serum Total Protein 7.9 (6.3-8.2) g/dL Albumin 4.4 (3.5-5.0) g/dL - Radiology Exams Ordered Rad Exams-Entire Visit: Radiology Procedures Category Date Time Status CHEST 1 VIEW (PORTABLE) Stat Exams 10/04/23 06:11 Completed CHEST WITH CONTRAST [CT] Stat Exams 10/04/23 12:09 Completed FEMUR Stat Exams 10/04/23 10:17 Completed LUMBAR SPINE W/O [CT] Stat Exams 10/04/23 00:08 Completed PELVIS WITHOUT CONTRAST [CT] Stat Exams 10/04/23 00:08 Completed THORACIC SPINE W/O CONTRAST [CT] Stat Exams 10/04/23 00:08 Completed - Procedures and Test Procedures and Tests throughout Hospitalization: Therapy Orders & Screens 10/04/23 08:02 Oxygen Nasal Cannula 2 lpm Comment: Respiratory Therapy Consult ONCE Comment: Reason For Exam: 10/04/23 08:27 OT Screen per Nursing Assess ONCE Comment: Protocol Order Physician Instructions: Greater than 3 points order OT Admission Screening Reason For Exam: Triggered on Admission Diagnosis: back pain Open Wound/Cellutlitis/Pressure Ulcers: No Acute Fx/ORIF/Change in wt bearing status: No Severe MUSCULOSKELETAL pain: Yes: back pain ADL Dysfunction: Yes: uses walker, back pain Acute CVA w/Hemiparesis/Hemiplegia: No Decreased Functional Mobility/Strength: Yes: back pain Sprain/Strain: No Acute Post-op Mobility Dysfunction: No Total Points: 9 PT Screen per Nursing Assess ONCE Comment: Protocol Order Physician Instructions: Greater than 3 points order PT Admission Screenin Reason For Exam: Triggered on Admission Diagnosis: back pain Open Wound/Cellutlitis/Pressure Ulcers: No Acute Fx/ORIF/Change in wt bearing status: No Severe MUSCULOSKELETAL pain: Yes: back pain ADL Dysfunction: Yes: uses walker, back pain Acute CVA w/Hemiparesis/Hemiplegia: No Decreased Functional Mobility/Strength: Yes: back pain Sprain/Strain: No Acute Post-op Mobility Dysfunction: No Total Points: 9 10/04/23 09:39 Respiratory Therapy Consult ONCE Comment: Reason For Exam: Diagnosis: back pain 10/04/23 11:05 Qualify for Home Oxygen ROUTINE Comment: Diagnosis: back pain Discharge Exam General Appearance: no apparent distress Neurologic Exam: alert, oriented x 3, cooperative Eye Exam: PERRL Ears, Nose, Throat Exam: normal ENT inspection Neck Exam: full range of motion Respiratory Exam: normal breath sounds, lungs clear Cardiovascular Exam: regular rate/rhythm, normal heart sounds Gastrointestinal/Abdomen Exam: soft, normal bowel sounds Pelvic Exam: deferred Rectal Exam: deferred Back Exam: normal range of motion, vertebral tenderness (TTP to L/T spine) Extremity Exam: normal inspection, normal range of motion Skin Exam: normal color Final Diagnosis/Problem List - Final Discharge Diagnosis/Problem (1) Hypoxia Current Visit: Yes Status: Acute Code(s): R09.02 - HYPOXEMIA (2) Compression fracture of thoracic vertebra Current Visit: Yes Status: Acute Onset Date: ~08/26/17 Code(s): S22.000A - WEDGE COMPRESSION FRACTURE OF UNSP THORACIC VERTEBRA, INIT (3) Fall Current Visit: Yes Status: Acute Code(s): W19.XXXA - UNSPECIFIED FALL, INITIAL ENCOUNTER (4) HTN (hypertension) Current Visit: Yes Status: Acute Code(s): I10 - ESSENTIAL (PRIMARY) HYPERTENSION (5) HLD (hyperlipidemia) Current Visit: Yes Status: Acute Code(s): E78.5 - HYPERLIPIDEMIA, UNSPECIFIED - Discharge Disposition: Home, Self-Care Condition: Stable Prescriptions: New Lidocaine HCl 5% Patch [Lidoderm Patch 5%] 1 patch TP DAILY 12 Days #12 patch Continue Calcium Carbonate/Vitamin D3 [Calcium 600-Vit D3 400 Caplet] 1 tab PO DAILY Aspirin EC 81 mg [Ecotrin 81 mg] 81 mg PO DAILY Alendronate Sodium 70 mg [Fosamax 70 MG] 70 mg PO WEEKLY Ubidecarenone [Co Q-10] 100 mg PO HS Vit A/Vit C/Vit E/Zinc/Copper [Preservision Areds Softgel] 1 each PO DAILY Famotidine 20 mg [Pepcid 20 MG] 20 mg PO BID Metoprolol Tartrate 25 mg [Lopressor 25MG Tab] 12.5 mg PO BID Loperamide HCl 2 mg [Imodium 2 mg] 0 mg PO UD PRN PRN Reason: Diarrhea Simvastatin 20Mg [Zocor 20Mg] 20 mg PO QPM Acetaminophen [Tylenol Arthritis] 1 - 2 tab PO Q8H Naproxen Sodium [Wal-Proxen] 1 - 2 tab PO [id number] PRN PRN Reason: Pain Instructions: Preventing falls in adults Follow up with: LEONIE ARREDONDO [ACTIVE STAFF] - Call for Appointment JENIFER RESENDIZ MD [Primary Care Provider] - 10/14/23 2:15 pm
[2023-10-05 07:51] VITALS: RESP 16
[2023-10-05] MEDS: ECOTRIN 81 MG PO SCH (09:41)
[2023-10-05 10:26] LABS: Slide Review 1 YES
[2023-10-05] MEDS: TYLENOL 325 MG PO PRN (12:13)
[2023-10-05 12:31] VITALS: BP 153/82; PULSE 85; TEMP 98.1; O2SAT 95
[2023-10-11] MEDS ORDERED: Fosamax 70 MG PO SCH (08:00)
== END 2023-10-05 14:24 | disposition home or self-care (01) ==
LOC: ED 23:46 → MED SURG 10-04 07:51
PROVIDERS: ADMIT Internal Medicine; ATTEND Internal Medicine
DX: R09.02 Hypoxemia (principal); S22.000A Wedge compression fracture of unspecified thoracic vertebra, initial encounter for closed fracture; W19.XXXA Unspecified fall, initial encounter; I10 Essential (primary) hypertension; E78.5 Hyperlipidemia, unspecified; Z79.899 Other long term (current) drug therapy
CPT/HCPCS: 36415; 71045; 71260; 72128; 72131; 72192; 73552; 80053; 85025; 85379; 93268; 94760; 94762; 99285; G0378; Q3014; J1650; A9270-GY

== ENCOUNTER 2023-10-08 01:21 | Emergency (ER) | payer MEDICARE ==
--- NOTE | 2023-10-08 02:02 | ERPHSYRPT ---
- History of Present Illness Time Seen by Provider: 10/08/23 02:01 Source: patient, EMS, old records Exam Limitations: no limitations Physician History: This is an 88-year-old white female patient of Dr. Resendiz who lives in [facility] and presents with back pain similar to when she was evaluated here in the emergency department on 10/03/2023. She was placed in observation into the hospital and I reviewed the emergency room visit, admission visit and all the extensive x-ray results on that admission into the hospital. Since that discharge on 10/05/2023, patient has not fallen. However, she states that she has periodic twinges of pain. She is sleeping and resting but when I entered the patient's emergency department room I watched her and she was sleeping. When I woke her up she immediately moaned of pain. Her medication list includes Tylenol arthritis and naproxen. I do not see any other medications. Patient has a history of hypertension, hyperlipidemia and osteoporosis. Patient denies chest pain. Patient denies shortness of breath. Patient wears oxygen at home. Timing/Duration: today Method of Injury: other (No new fall) Quality: stabbing (Brief twinges of pain) Back Pain Location: lumbar spine, paraspinous muscles Severity of Pain-Max: mild (To moderate) Severity of Pain-Current: mild (Patient is currently sleeping) Modifying Factors: Improves With: movement Associated Symptoms: lower back pain, muscle spasms, No urinary incontinence, No loss of bowel control, No constipation, No numbness in legs/feet Previous symptoms: same symptoms as today, recent hospitalization, recently [facility] Allergies/Adverse Reactions: No Known Drug Allergies Allergy (Verified 10/08/23 01:46) Home Medications: Alendronate Sodium 70 mg [Fosamax 70 MG] 70 mg PO WEEKLY 03/08/12 [History] Aspirin EC 81 mg [Ecotrin 81 mg] 81 mg PO DAILY 03/08/12 [History] Calcium Carbonate/Vitamin D3 [Calcium 600-Vit D3 400 Caplet] 1 tab PO DAILY 1 [History] Acetaminophen [Tylenol Arthritis] 2 tab PO Q8HPRN PRN 10/04/23 [History] Famotidine 20 mg [Pepcid 20 MG] 20 mg PO BID 10/04/23 [History] Loperamide HCl 2 mg [Imodium 2 mg] 0 mg PO UD PRN 10/04/23 [History] Metoprolol Tartrate 25 mg [Lopressor 25MG Tab] 12.5 mg PO BID 10/04/23 [History] Naproxen Sodium [Wal-Proxen] 2 tab PO [id number] PRN 10/04/23 [History] Simvastatin 20Mg [Zocor 20Mg] 20 mg PO QPM 10/04/23 [History] Ubidecarenone [Co Q-10] 100 mg PO HS 10/04/23 [History] Vit A/Vit C/Vit E/Zinc/Copper [Preservision Areds Softgel] 1 each PO DAILY 10/04/23 [History] Hx Tetanus, Diphtheria Vaccination/Date Given: Yes Hx Influenza Vaccination/Date Given: Yes Hx Pneumococcal Vaccination/Date Given: Yes Travel Risk - International Travel Have you traveled outside of the country in past 3 weeks: No - Emerging Infectious Disease Are you exhibiting symptoms associated with any current EIDs: No - Review of Systems Constitutional: No Symptoms Eyes: No Symptoms Ears, Nose, & Throat: No Symptoms Respiratory: No Symptoms Cardiac: No Symptoms Abdominal/Gastrointestinal: No Symptoms Genitourinary Symptoms: No Symptoms Musculoskeletal: Back Pain Skin: No Symptoms Neurological: No Symptoms Psychological: No Symptoms Endocrine: No Symptoms Hematologic/Lymphatic: No Symptoms Immunological/Allergic: No Symptoms All Other Systems: Reviewed and Negative - Past Medical History Pertinent Past Medical History: Yes Neurological History: No Pertinent History ENT History: No Pertinent History Cardiac History: High Cholesterol, Hypertension Respiratory History: No Pertinent History Endocrine Medical History: No Pertinent History Musculoskeletal History: Arthritis, Osteoporosis, Other GI Medical History: GERD History: No Pertinent History Psycho-Social History: No Pertinent History Female Reproductive Disorders: No Pertinent History Other Medical History: h/o compression fractures to spine, chronic mid to upper center back pain - Past Surgical History Past Surgical History: Yes Neuro Surgical History: No Pertinent History Cardiac: No Pertinent History Respiratory: No Pertinent History Gastrointestinal: Appendectomy, Cholecystectomy Genitourinary: Other Musculoskeletal: No Pertinent History Female Surgical History: Hysterectomy Other Surgical History: kidney stones - Social History Smoking Status: Never smoker Exposure to second hand smoke: No Drug Use: none Patient Lives Alone: No - Nursing Vital Signs Nursing Vital Signs: Initial Vital Signs Temperature 99.0 F 10/08/23 01:25 Pulse Rate 76 10/08/23 01:25 Respiratory Rate 17 10/08/23 01:25 Blood Pressure 232/74 10/08/23 01:25 O2 Sat by Pulse Oximetry 98 10/08/23 01:25 Pain Scale Pain Intensity 8 - Physical Exam General Appearance: no apparent distress, alert, anxiety, thin Eye Exam: PERRL/EOMI, eyes nml inspection Ears, Nose, Throat Exam: normal ENT inspection, moist mucous membranes Neck Exam: normal inspection, non-tender, supple, full range of motion Respiratory Exam: normal breath sounds, lungs clear, airway intact, No chest tenderness, No respiratory distress Cardiovascular Exam: regular rate/rhythm, normal heart sounds, normal peripheral pulses Gastrointestinal Exam: soft, normal bowel sounds, No tenderness Pelvic Exam: not done Rectal Exam: not done Back Exam: vertebral tenderness (Upper lumbar region), decreased range of motion, muscle spasm, No CVA tenderness Extremity Exam: normal inspection, normal range of motion, pelvis stable Neurologic Exam: alert, oriented x 3, cooperative, 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, normal mood/affect Skin Exam: normal color, warm, dry Lymphatic Exam: No adenopathy SpO2 Interpretation: normal O2 Delivery: Room Air - Course Nursing assessment & vital signs reviewed: Yes Ordered Tests: Active Orders 24 hr Category Date Time Status ABDOMEN AND PELVIS W/0 CONTRAS [CT] Stat Exams 10/08/23 02:06 Completed Medication Summary Discontinued Medications Generic Name Dose Route Start Last Admin Trade Name Eliseo PRN Reason Stop Dose Admin Methylprednisolone Sodium 0 mg 10/08/23 02:08 10/08/23 02:35 Succinate 62.5 mg/ Sterile IM 10/08/23 02:09 62.5 mg Water 2 ml STAT ONE Administration Methylprednisolone Sodium Succinate Confirm 10/08/23 02:31 Methylprednis Sod Succ 125 Mg/2 Ml Vial Administered 10/08/23 02:32 Dose 125 mg .ROUTE .STK-MED ONE Orphenadrine Citrate 30 mg 10/08/23 02:07 10/08/23 02:42 Orphenadrine Citrate 60 Mg/2 Ml Vial IM 10/08/23 02:08 Not Given STAT ONE Sterile Water Confirm 10/08/23 02:30 Water For Injection,Sterile 10 Ml Vial Administered 10/08/23 02:31 Dose 10 ml IJ .STK-MED ONE - Progress Progress: improved, pain not gone completely, re-examined Progress Note: 10/08/23 02:34 My medical decision making and the assignment of low to moderate complexity of this patient's medical issue today is based on review of the patient's past medical history, review of the patient's most recent admission into the hospital, review of the patient's recent x-ray results from that admission, review of the patient's medication list, review of patient drug allergy list, history present illness and physical findings on examination. I do not feel that the patient requires a repeat of all her studies. She has not fallen again. What I will check for is to see if there is an abdominal aortic aneurysm that has ruptured or is leaking. We will provide her with an injection intramuscularly of both 30 mg of orphenadrine and 62.5 mg of Solu-Medrol. 10/08/23 02:35 Differential diagnosis includes acute exacerbation of chronic low back pain, abdominal aortic aneurysm, anxiety, muscular spasms 10/08/23 03:[address] scan of the abdomen pelvis without contrast was interpreted by the radiologist and I reviewed the impression. The impression states colonic divert iculosis without diverticulitis. There is atherosclerotic calcifications of the aorta but no mention of abdominal aortic aneurysm or dissection of the abdominal aorta. Patient is resting comfortably. The patient does not need a repeat of all her studies. They are no more than 4 days old. She did not fall. We will add to her current regimen of pain control prednisone and Flexeril. Counseled pt/family regarding: diagnosis, need for follow-up, rad results Medical Desision Making - Independent Historian Additional History obtained from: Pole Classifier/EMT - External Record(s) Reviewed Records reviewed as a part of evaluation & management: Inpatient, Discharge Summary, FDC - Diagnostic Testing Diagnostic test were ordered, analyzed, and reviewed by me: Yes Radiological Interpretation: Reviewed by me, Teleradiologist Report - Risk of complications The pt has a mod risk of morbidity or mortality based on: Need for prescription drug management - Departure Departure Disposition: Home Clinical Impression: Spasm of back muscles Condition: Stable Critical Care Time: No Referrals: RESENDIZ,JENIFER PHILLIP, MD [Primary Care Provider] - Follow up/PCP as directed Additional Instructions: Hold the naproxen while the patient is on the steroids. Call the patient's primary care provider later today, 10/08/2023, to arrange a follow-up visit, to be seen in the next 3 to 5 days. Have your primary care provider formulate pain control regimen as an outpatient. Prescriptions: Cyclobenzaprine HCl 5 mg PO DAILY #7 tablet Prednisone 5 mg [Deltasone 5 mg] 5 mg PO BID #10 tablet
[2023-10-08 02:22] VITALS: TEMP 99
[2023-10-08] MEDS ORDERED: Sterile H2O 10 ml IJ ONE (02:30)
[2023-10-08] MEDS ORDERED: solu-MEDROL ONE (02:31)
[2023-10-08] MEDS: SOLU MEDROL IM ONE (02:35)
[2023-10-08] MEDS: STERILE H2O IM ONE (02:35)
[2023-10-08] MEDS: Norflex 60 MG/2 ML IM ONE (02:42)
--- NOTE | 2023-10-08 02:59 | XRAY ---
CLINICAL HISTORY: Back pain COMPARISON: CT Pelvis 10/03/2023 was reviewed. TECHNIQUE: CT scan of the abdomen and pelvis without intravenous contrast administration."One of the following dose reduction techniques was utilized for this exam: Automated exposure control, adjustment of the mA and/or kV according to patient size, and use of iterative reconstruction." FINDINGS: The stomach and small bowel appear unremarkable. The colon harbor mutliple small diverticula. No signs of acute diverticulitis. No signs of appendicitis. The liver is of average size, regular contour and homogeneous texture with no focal lesion could be detected on a non-contrast basis. No intra hepatic biliary radical dilatation. The GB is surgically removed. The CBD is prominent. The spleen is of average size and shape with homogeneous parenchyma and no focal lesion could be noted on a non-contrast basis. Both kidneys are of normal size, shape and parenchymal thickness with no stones, back pressure changes or space-occupying lesions on a non-contrast basis. There is fullness of the left renal pelvicalyceal system. The other retroperitoneal structures including the pancreas and adrenal glands are grossly within normal limits. No significant lymph chely enlargement or ascetic fluid collection. The uterus is surgically removed. Normal filling of the urinary bladder with no stones, masses, or diverticula. Atherosclerotic calcification of the aorta is noted. Bone window settings showed reduced bone density, and multiple compression fractures of the lumbar vertebrae more appreciated at the T12 vertebra wtih mild retropulsion. There is a grade I anterolisthesis of L5 over S1. Bilateral hip joints degenerative changes. Right femoral internal fixation. Lung window settings showed bilateral basal atelectatic changes and minimal pleural thickening. IMPRESSION: 1. Colonic diverticulosis without diverticulitis. 2. Fullness of the left pelvicalyceal system to be further evaluated by contrast-enhanced CT. 3. Post cholecystectomy changes. 4. Reduced osseous mineralization and multiple osteoporotic fractures. 5. Other findings are detailed above. Electronically Signed by: Mahesh Guerra MD. (10/08/2023 02:54:44 EDT)
[2023-10-08] MEDS ORDERED: Cyclobenzaprine 10 MG ONE (03:09)
[2023-10-08] MEDS: Cyclobenzaprine 10 MG PO ONE (03:14)
[2023-10-08 04:16] VITALS: BP 180/85; PULSE 79; RESP 20; O2SAT 97
== END 2023-10-08 04:10 | disposition home or self-care (01) ==
LOC: ED 01:21
DX: M62.830 Muscle spasm of back (principal); M54.50 Low back pain, unspecified; I10 Essential (primary) hypertension; E78.5 Hyperlipidemia, unspecified; Z79.52 Long term (current) use of systemic steroids; Z79.899 Other long term (current) drug therapy; Z99.81 Dependence on supplemental oxygen
CPT/HCPCS: 74176; 96372; 99284; J2919; A9270-GY

== ENCOUNTER 2023-10-12 12:28 | Observation (INO) | payer MEDICARE ==
--- NOTE | 2023-10-12 12:44 | ERPHSYRPT ---
- History of Present Illness Time Seen by Provider: 10/12/23 12:44 Historian: patient, EMS, old records Exam Limitations: no limitations Physician History: This is an 88-year-old white female patient of Dr. Resendiz who lives at [facility] and was brought to the emergency department by the paramedics secondary to abdominal pain. Reports stated that the pain is in the right lower quadrant. Patient has had an appendectomy, cholecystectomy and hysterectomy in the past. Patient states that she has pain in her back and not in her abdomen today. Patient denies chest pain. Patient denies shortness of breath. Patient was here on 10/04/2023 for evaluation status post a fall. She was placed in the hospital and I reviewed that admission and discharge summary note. I also reviewed that admissions radiographic studies. The CTA of the chest shows no pulmonary embolism and no acute cardiopulmonary abnormality. The CT scan of the lumbar and thoracic spine showed no acute findings but old, chronic multiple thoracic and lumbar spine fractures. CT scan of the pelvis shows no acute hip or pelvis fractures. There are no acute findings on any of these CT scan studies that were interpreted by the radiologist on 10/04/2023. Patient has a history of hyperlipidemia, hypertension and gastroesophageal reflux disease. Timing/Duration: today Abdominal Pain Onset Location: RLQ (Per [facility] report), other (Patient states that she has no abdominal pain. Her pain is in her back) Pain Radiation: no radiation Severity of Pain-Max: none Severity of Pain-Current: none Associated Symptoms: denies symptoms Previous symptoms: recently seen, recent hospitalization, recently treated Allergies/Adverse Reactions: No Known Drug Allergies Allergy (Verified 10/12/23 12:56) Home Medications: Alendronate Sodium 70 mg [Fosamax 70 MG] 70 mg PO WEEKLY 03/08/12 [History] Aspirin EC 81 mg [Ecotrin 81 mg] 81 mg PO DAILY 03/08/12 [History] Calcium Carbonate/Vitamin D3 [Calcium 600-Vit D3 400 Caplet] 1 tab PO DAILY 03/08/12 [History] Acetaminophen [Tylenol Arthritis] 2 tab PO Q8HPRN PRN 10/04/23 [History] Famotidine 20 mg [Pepcid 20 MG] 20 mg PO BID 10/04/23 [History] Loperamide HCl 2 mg [Imodium 2 mg] 0 mg PO UD PRN 10/04/23 [History] Metoprolol Tartrate 25 mg [Lopressor 25MG Tab] 12.5 mg PO BID 10/04/23 [History] Naproxen Sodium [Wal-Proxen] 2 tab PO [id number] PRN 10/04/23 [History] Simvastatin 20Mg [Zocor 20Mg] 20 mg PO QPM 10/04/23 [History] Ubidecarenone [Co Q-10] 100 mg PO HS 10/04/23 [History] Vit A/Vit C/Vit E/Zinc/Copper [Preservision Areds Softgel] 1 each PO DAILY 10/04/23 [History] Cyclobenzaprine HCl 5 mg PO HS 10/12/23 [History] Hx Tetanus, Diphtheria Vaccination/Date Given: Yes Hx Influenza Vaccination/Date Given: Yes Hx Pneumococcal Vaccination/Date Given: Yes Travel Risk - International Travel Have you traveled outside of the country in past 3 weeks: No - Emerging Infectious Disease Are you exhibiting symptoms associated with any current EIDs: No - Review of Systems Constitutional: No Symptoms Eyes: No Symptoms Ears, Nose, & Throat: No Symptoms Respiratory: No Symptoms Cardiac: No Symptoms Abdominal/Gastrointestinal: No Symptoms Genitourinary Symptoms: No Symptoms Musculoskeletal: Back Pain (Chronic. No new fall or injury) Skin: No Symptoms Neurological: No Symptoms Psychological: No Symptoms Endocrine: No Symptoms Hematologic/Lymphatic: No Symptoms Immunological/Allergic: No Symptoms All Other Systems: Reviewed and Negative - Past Medical History Pertinent Past Medical History: Yes Neurological History: No Pertinent History ENT History: No Pertinent History Cardiac History: High Cholesterol, Hypertension Respiratory History: No Pertinent History Endocrine Medical History: No Pertinent History Musculoskeletal History: Arthritis, Osteoporosis, Other GI Medical History: GERD History: No Pertinent History Psycho-Social History: No Pertinent History Female Reproductive Disorders: No Pertinent History Other Medical History: h/o compression fractures to spine, chronic mid to upper center back pain - Past Surgical History Past Surgical History: Yes Neuro Surgical History: No Pertinent History Cardiac: No Pertinent History Respiratory: No Pertinent History Gastrointestinal: Appendectomy, Cholecystectomy Genitourinary: Other Musculoskeletal: No Pertinent History Female Surgical History: Hysterectomy Other Surgical History: kidney stones - Social History Smoking Status: Never smoker Exposure to second hand smoke: No Drug Use: none Patient Lives Alone: No - Nursing Vital Signs Nursing Vital Signs: Initial Vital Signs Temperature 97.4 F 10/12/23 12:37 Pulse Rate 94 H 10/12/23 12:37 Respiratory Rate 17 10/12/23 12:37 Blood Pressure 206/80 10/12/23 12:37 O2 Sat by Pulse Oximetry 100 10/12/23 12:37 Pain Scale Pain Intensity 4 - Physical Exam General Appearance: no apparent distress, alert, anxiety, thin Eye Exam: PERRL/EOMI, eyes nml inspection Ears, Nose, Throat Exam: normal ENT inspection, moist mucous membranes Neck Exam: normal inspection, non-tender, supple, full range of motion Respiratory Exam: normal breath sounds, lungs clear, respiratory distress, airway intact, No chest tenderness Cardiovascular Exam: regular rate/rhythm, normal heart sounds, normal peripheral pulses Gastrointestinal/Abdomen Exam: soft, normal bowel sounds, No tenderness Pelvic Exam: not done Rectal Exam: not done Back Exam: normal inspection, normal range of motion, No CVA tenderness, No vertebral tenderness Extremity Exam: normal inspection, normal range of motion, pelvis stable Neurologic Exam: alert, cooperative, sensation nml Skin Exam: normal color, warm, dry Lymphatic Exam: No adenopathy SpO2 Interpretation: normal O2 Delivery: Room Air - Course Nursing assessment & vital signs reviewed: Yes Ordered Tests: Active Orders 24 hr Category Date Time Status IV Insertion STAT Care 10/12/23 12:52 Active cath [Cath for Specimen-Straight] STAT Care 10/12/23 12:48 Active ABDOMEN AND PELVIS W/0 CONTRAS [CT] Stat Exams 10/12/23 12:49 Completed CULTURE,URINE Stat Lab 10/12/23 12:48 Received UA W/RFX UR CULTURE Stat Lab 10/12/23 12:48 Completed Lab/Rad Data: Laboratory Results 10/12/23 Range/Units 12:48 Urine Color Yellow (Yellow) Urine Appearance Clear (Clear) Urine pH 6.5 (4.6-8.0) Ur Specific [place] 1.015 (1.005-1.030) Urine Protein Trace A (Negative) Urine Glucose (UA) Negative (Negative) mg/dL Urine Ketones Negative (Negative) Urine Blood Negative (Negative) Urine Nitrite Negative (Negative) Urine Bilirubin Negative (Negative) Urine Urobilinogen 1.0 A (0.2) mg/dL Ur Leukocyte Esterase Negative (Negative) U Hyaline Cast (Auto) NONE SEEN (0-2) /LPF Urine Microscopic RBC 0-2 (0-5) /HPF Urine Microscopic WBC 0-2 (0-5) /HPF Ur Epithelial Cells None Seen (None Seen) /HPF Urine Bacteria None Seen (None Seen) /HPF Urine Culture Reflexed ORDERED SEPARATELY (NO) - Progress Progress: unchanged, re-examined Progress Note: 10/12/23 13:11 My medical decision making and the assignment of low to moderate complexity to this patient's medical issue today is based on review of the patient's past medical history, review of the patient's most recent admission and discharge summary (10/04/2023), review of the patient's most recent radiographic study results, medication list, medication allergy list, history present illness and physical findings on examination. Workup in this patient includes urinalysis and CT scan of the abdomen pelvis without contrast. Differential diagnosis includes abdominal wall pain, UTI. 10/12/23 14:55 Interpreted the patient's laboratory data results. Patient does not have a urinary tract infection. She has no acute, emergent medical issue. CT scan of the abdomen and pelvis was interpreted by the radiologist and I reviewed the impression. The impression states no significant interval changes when compared to recent radiographic studies. There is colonic diverticulosis without diverticulitis. There are chronic, osteoporotic fractures present. Counseled pt/family regarding: lab results, diagnosis, rad results Medical Desision Making - Independent Historian Additional History obtained from: Alf nurse, Hand Miter Operator/EMT - Diagnostic Testing Diagnostic test were ordered, analyzed, and reviewed by me: Yes Radiological Interpretation: Reviewed by me, Teleradiologist Report - Risk of complications Low Risk: Low risk of morbidity from additional dx testing or treatment - Departure Departure Disposition: Home Clinical Impression: Chronic back pain, Chronic abdominal pain Condition: Stable Critical Care Time: No Referrals: JENIFER RESENDIZ MD [Primary Care Provider] - Follow up/PCP as directed Additional Instructions: Continue all your medications and therapies as prescribed.
[2023-10-12 13:02] LABS: Appearance Clear (Clear); Bacteria None Seen /HPF (None Seen); Bilirubin Negative (Negative); Blood Negative (Negative); Epithelial Cells None Seen /HPF (None Seen); Glucose, Urine Negative (Negative); Hyaline Casts NONE SEEN /LPF (0-2); Ketones Negative (Negative); Leukocyte Esterase Negative (Negative); Nitrite Negative (Negative); Ph 6.5 (4.6-8.0); Protein,Urine Dip Trace (Negative); RBC 0-2 /HPF (0-5); Specific Gravity 1.015 (1.005-1.030); WBC 0-2 /HPF (0-5)
[2023-10-12 13:03] LABS: ADD URINE CULTURE? ORDERED SEPARATELY (NO)
--- NOTE | 2023-10-12 14:46 | XRAY ---
CLINICAL HISTORY: ABD pain COMPARISON: 10/08/2023 TECHNIQUE: CT scan of the abdomen and pelvis without intravenous contrast administration. With coronal and sagittal reconstruction. One of the following dose reduction techniques was utilized for this exam.Automated exposure control, adjustment of the mA and/or kV according to patient size, and use of iterative reconstruction. FINDINGS: The stomach and small bowel appear unremarkable. The colon has multiple small diverticula. No signs of acute diverticulitis. No signs of appendicitis. The liver is of average size, regular contour, and homogeneous texture with no focal lesion that could be detected on a non-contrast basis. No intra hepatic biliary radical dilatation. The GB is surgically removed. The CBD is prominent. The spleen is of average size and shape with homogeneous parenchyma and no focal lesion could be noted on a non-contrast basis. Both kidneys are of normal size, shape and parenchymal thickness with no stones, back pressure changes or space-occupying lesions on a non-contrast basis. There is mild fullness of the left renal pelvicalyceal system. Stable finding. The other retroperitoneal structures including the pancreas and adrenal glands are grossly within normal limits. No significant lymph chely enlargement or ascitic fluid collection. The uterus is surgically removed. Normal filling of the urinary bladder with no stones, masses, or diverticula. Atherosclerotic calcification of the aorta and ilac vessels noted. Generalized osteoporosis. Bone window settings showed reduced bone density, and multiple compression fractures of the lumbar vertebrae more appreciated at the T12 vertebra with mild retropulsion. There is a grade I anterolisthesis of L5 over S1 with bilateral pars interarticularis defect. Bilateral hip joints degenerative changes. Right femoral internal fixation. Lung window settings showed bilateral basal atelectatic changes and minimal pleural thickening. Enlarged retrocrural lymph nodes noted at the lower chest. IMPRESSION: 1. Colonic diverticulosis without evident diverticulitis. Stable finding 2. Mildl Fullness in the left pelvicalyceal system to be further evaluated by contrast-enhanced CT.Stable finding. 3. Reduced osseous mineralization and multiple osteoporotic fractures and spondylolisthesis. 4. No significant interval changes. Electronically Signed by: Mahesh Guerra MD. (10/12/2023 14:42:00 EDT)
[2023-10-12] MEDS ORDERED: Norflex 60 MG/2 ML ONE (16:13)
[2023-10-12] MEDS ORDERED: NORCO 5/325 MG ONE (16:13)
[2023-10-12] MEDS ORDERED: Sterile H2O 10 ml IJ ONE (16:13)
[2023-10-12] MEDS ORDERED: solu-MEDROL ONE (16:13)
[2023-10-12] MEDS: NORCO 5/325 MG PO ONE (16:15)
[2023-10-12] MEDS: Norflex 60 MG/2 ML IM ONE (16:18)
[2023-10-12] MEDS: solu-MEDROL 40 MG, Sterile H2O 10 ml 1 ML IM STA (16:26)
[2023-10-12] MEDS ORDERED: MORPHINE SULFATE 2 MG INJ IV PRN (16:34)
[2023-10-12] MEDS ORDERED: Zofran 4 MG/2 ML VIAL IV PRN (16:34)
[2023-10-12] MEDS ORDERED: TYLENOL 325 MG PO PRN (16:36)
--- NOTE | 2023-10-12 17:15 | PCM.HP ---
<CINTHYA CARMONA - Last Filed: 10/12/23 17:48> History of Present Illness - Chief Complaint Chief Complaint: intractable back pain Date: 10/12/23 History of Present Illness: is a 88 year old female with a pmhx of HLD, GERD, and HTN as well as h/o compression fractures to the spine presented to ED 10/12/23 with complaints of back pain. Patient states she has chronic back pain secondary to compression fractures but it was more severe today with any exertion which prompted her to report to the ED for pain control. Pain is mostly in her mid to lower back. Sharp/aching/constant in characteristic. Patient states pain is 5/10 on numerical pain scale after receiving Norflex, solumedrol, and Lyle in ED. She does wear a back brace at home. No bowel/bladder dysfunction. Sensation intact. Of note patient was recently admitted from 10/04/23- 10/05/23 for a ground level fall at home and subsequential pain following. During that hospital course Ortho was consulted as there was a question on one of the CT scans regarding nonossified piece of bone at the tip of the greater trochanter documented as a new finding. The patient does have a history of a previous subtrochanteric fracture, which required an IM nail. No further intervention needed. She also had recent ER visit 10/08/23 with similar complaints. Flexeril was added to her pain control regimen at that visit. Patient resides at assisted living. In ED, patient is hypertensive. CT of the abdomen with no acute findings. There is colonic diverticulosis and chronic osteoporotic fractures present. UA unremarkable. Plan is for pain control. Patient may need SNF placement on [facility] vs assisted living where she currently resides. Patient was given Norflex, Lyle, solu-medrol in ED. - Review of Systems Constitutional: No Symptoms Eyes: No Symptoms Ears, Nose, & Throat: Nose Congestion, Sinus Drainage Respiratory: Short Of Breath Cardiac: No Symptoms Abdominal/Gastrointestinal: No Symptoms Genitourinary Symptoms: No Symptoms Musculoskeletal: Back Pain Skin: No Symptoms Neurological: No Symptoms Psychological: No Symptoms Endocrine: No Symptoms Hematologic/Lymphatic: No Symptoms Immunological/Allergic: No Symptoms Medications & Allergies Home Medications: Home Medication List Alendronate Sodium 70 mg [Fosamax 70 MG] 70 mg PO WEEKLY 03/08/12 [History Confirmed 10/12/23] Aspirin EC 81 mg [Ecotrin 81 mg] 81 mg PO DAILY 03/08/12 [History Confirmed 10/12/23] Calcium Carbonate/Vitamin D3 [Calcium 600-Vit D3 400 Caplet] 1 tab PO DAILY 03/08/12 [History Confirmed 10/12/23] Acetaminophen [Tylenol Arthritis] 1,000 mg PO Q6HPRN PRN 10/04/23 [History Confirmed 10/12/23] Famotidine 20 mg [Pepcid 20 MG] 20 mg PO BID 10/04/23 [History Confirmed 10/12/23] Loperamide HCl 2 mg [Imodium 2 mg] 2 mg PO UD PRN 10/04/23 [History Confirmed 10/12/23] Metoprolol Tartrate 25 mg [Lopressor 25MG Tab] 12.5 mg PO BID 10/04/23 [History Confirmed 10/12/23] Naproxen Sodium [Wal-Proxen] 500 mg PO [id number] PRN 10/04/23 [History Confirmed 10/12/23] Simvastatin 20Mg [Zocor 20Mg] 20 mg PO QPM 10/04/23 [History Confirmed 10/12/23] Ubidecarenone [Co Q-10] 100 mg PO HS 10/04/23 [History Confirmed 10/12/23] Vit A/Vit C/Vit E/Zinc/Copper [Preservision Areds Softgel] 1 each PO DAILY 10/04/23 [History Confirmed 10/12/23] Prednisone 5 mg [Deltasone 5 mg] 5 mg PO BID #10 tablet 10/08/23 [Rx Confirmed 10/12/23] Cyclobenzaprine HCl 5 mg PO HS 10/12/23 [History Confirmed 10/12/23] Allergies/Adverse Reactions: Allergies Allergy/AdvReac Type Severity Reaction Status Date / Time No Known Drug Allergies Allergy Verified 10/12/23 12:56 - Past Medical History Past Medical History: Yes Neurological History: No Pertinent History ENT History: No Pertinent History Cardiac History: High Cholesterol, Hypertension Respiratory History: No Pertinent History Endocrine Medical History: No Pertinent History Musculoskelatal History: Arthritis, Osteoporosis, Other GI Medical History: GERD History: No Pertinent History Pyscho-Social History: No Pertinent History Reproductive Disorders: No Pertinent History Comment: h/o compression fractures to spine, chronic mid to upper center back pain - Past Surgical History Past Surgical History: Yes Neuro Surgical History: No Pertinent History Cardiac History: No Pertinent History Respiratory Surgery: No Pertinent History GI Surgical History: Appendectomy, Cholecystectomy Genitourinary Surgical Hx: Other Musculskeletal Surgical Hx: No Pertinent History Female Surgical History: Hysterectomy Other Surgical History: kidney stones - Social History Smoking Status: Never smoker Exposure to second hand smoke: No Alcohol: None Drug Use: none - Social Determinants of Health Will the patient participate in the screening: Yes Do you worry about a steady place to live?: No Do you have any problems with any of the following?: No known problems In the past 12 months,have you had to go without utilities?: No Have you or anyone in your house had to go without enough: No Transportation Issues: No Has anyone in your support network made you feel unsafe?: No Does the patient want assistance with any of the above?: No - Physical Exam Vital Signs: Vital Signs - 24 hr Temp Pulse Resp BP Pulse Ox 10/12/23 16:42 83 20 180/98 93 L 10/12/23 14:00 143/82 98 10/12/23 13:45 65 18 100/60 95 10/12/23 12:37 97.4 F 94 H 17 206/80 100 General Appearance: no apparent distress Neurologic Exam: alert, oriented x 3, cooperative Eye Exam: PERRL/EOMI Ears, Nose, Throat Exam: moist mucous membranes Neck Exam: full range of motion Respiratory Exam: normal breath sounds, lungs clear Cardiovascular Exam: regular rate/rhythm, normal heart sounds Gastrointestinal/Abdomen Exam: soft, normal bowel sounds Back Exam: vertebral tenderness Extremity Exam: limited range of motion Skin Exam: normal color Results - Labs Lab/Micro Results: Lab Results-Last 24 Hours 10/12/23 Range/Units 12:48 Urine Color Yellow (Yellow) Urine Appearance Clear (Clear) Urine pH 6.5 (4.6-8.0) Ur Specific [place] 1.015 (1.005-1.030) Urine Protein Trace A (Negative) Urine Glucose (UA) Negative (Negative) mg/dL Urine Ketones Negative (Negative) Urine Blood Negative (Negative) Urine Nitrite Negative (Negative) Urine Bilirubin Negative (Negative) Urine Urobilinogen 1.0 A (0.2) mg/dL Ur Leukocyte Esterase Negative (Negative) U Hyaline Cast (Auto) NONE SEEN (0-2) /LPF Urine Microscopic RBC 0-2 (0-5) /HPF Urine Microscopic WBC 0-2 (0-5) /HPF Ur Epithelial Cells None Seen (None Seen) /HPF Urine Bacteria None Seen (None Seen) /HPF Urine Culture Reflexed ORDERED SEPARATELY (NO) - Radiology Impressions Radiology Exams & Impressions: Radiology Procedures Category Date Time Status ABDOMEN AND PELVIS W/0 CONTRAS [CT] Stat Exams 10/12/23 12:49 Completed Assessment/Plan (1) Chronic back pain Current Visit: Yes Status: Acute Assessment & Plan: -Recent hospitalization records/scans reviewed, no recent trauma, no further imaging needed at this time -Patient given Norflex/solumedrol in ED -Pain control with tramadol prn -continue home regimen tomorrow Code(s): M54.9 - DORSALGIA, UNSPECIFIED; G89.29 - OTHER CHRONIC PAIN (2) Compression fracture of thoracic vertebra Current Visit: No Status: Acute Onset Date: ~08/26/17 Assessment & Plan: -recent imaging reviewed as well as ortho recommendations from 10/03 visit, will continue recommendations of ambulate to tolerance, weight bearing as tolerated Code(s): S22.000A - WEDGE COMPRESSION FRACTURE OF UNSP THORACIC VERTEBRA, INIT (3) HLD (hyperlipidemia) Current Visit: No Status: Acute Assessment & Plan: -continue home meds Code(s): E78.5 - HYPERLIPIDEMIA, UNSPECIFIED (4) HTN (hypertension) Current Visit: No Status: Acute Assessment & Plan: -most likely elevated secondary to pain response, stable -continue home meds VTE: Lovenox Dispo: 2-3 days Code(s): I10 - ESSENTIAL (PRIMARY) HYPERTENSION Telemedicine Encounter - Telemedicine Encounter Telemedicine Encounter: The entirety of this encounter was performed via Telemedicine" <CHRISTOPH JOSUE - Last Filed: 10/12/23 19:34> History of Present Illness - Chief Complaint History of Present Illness: is a 88 year old female. - Physical Exam Vital Signs: Vital Signs - 24 hr Temp Pulse Resp BP Pulse Ox 10/12/23 19:05 98 10/12/23 18:02 85 20 98 10/12/23 17:31 98 10/12/23 17:21 97.8 F 84 20 134/67 99 10/12/23 16:42 83 20 180/98 93 L 10/12/23 14:00 143/82 98 10/12/23 13:45 65 18 100/60 95 10/12/23 12:37 97.4 F 94 H 17 206/80 100 Results - Labs Lab/Micro Results: Lab Results-Last 24 Hours 10/12/23 10/12/23 10/12/23 Range/Units 12:45 12:45 12:48 WBC 13.1 H (4.0-10.5) x10^3/uL RBC 4.57 (4.1-5.4) x10^6/uL Hgb 13.8 (12.0-16.0) g/dL Hct 41.3 (35-47) % MCV 90.4 (78-100) fL MCH 30.2 (26-32) pg MCHC 33.4 (32-36) g/dL RDW 13.0 (11.5-14.0) % Plt Count 376 (150-450) x10^3/uL MPV 10.7 (7.5-11.0) fL Gran % 86.6 H (36.0-66.0) % Immature Gran % (Auto) 0.8 H (0.00-0.4) % Nucleat RBC Rel Count 0.0 (0.00-0.1) % Eos # (Auto) 0.01 (0-0.5) x10^3/uL Immature Gran # (Auto) 0.11 H (0.00-0.03) x10^3u/L Absolute Lymphs (auto) 0.94 L (1.0-4.6) x10^3/uL Absolute Monos (auto) 0.67 (0.0-1.3) x10^3/uL Absolute Nucleated RBC 0.00 (0.00-0.01) x10^3u/L Lymphocytes % 7.2 L (24.0-44.0) % Monocytes % 5.1 (0.0-12.0) % Eosinophils % 0.1 (0.00-5.0) % Basophils % 0.2 (0.0-0.4) % Absolute Granulocytes 11.37 H (1.4-6.9) x10^3/uL Basophils # 0.02 (0-0.4) x10^3/uL Sodium 133 L (135-145) mmol/L Potassium 4.4 (3.5-5.1) mmol/L Chloride 98 (98-107) mmol/L Carbon Dioxide 24 (22-30) mmol/L Anion Gap 14.8 (5-15) MEQ/L BUN 20 H (7-17) mg/dL Creatinine 0.86 (0.52-1.04) mg/dL Estimated GFR 64.9 ML/MIN Glucose 156 H (74-106) mg/dL Calcium 9.9 (8.4-10.2) mg/dL Total Bilirubin 1.30 (0.2-1.3) mg/dL AST 44 H (14-36) U/L ALT 29 (0-35) U/L Alkaline Phosphatase 86 (38-126) U/L Serum Total Protein 7.9 (6.3-8.2) g/dL Albumin 4.4 (3.5-5.0) g/dL Urine Color Yellow (Yellow) Urine Appearance Clear (Clear) Urine pH 6.5 (4.6-8.0) Ur Specific [place] 1.015 (1.005-1.030) Urine Protein Trace A (Negative) Urine Glucose (UA) Negative (Negative) mg/dL Urine Ketones Negative (Negative) Urine Blood Negative (Negative) Urine Nitrite Negative (Negative) Urine Bilirubin Negative (Negative) Urine Urobilinogen 1.0 A (0.2) mg/dL Ur Leukocyte Esterase Negative (Negative) U Hyaline Cast (Auto) NONE SEEN (0-2) /LPF Urine Microscopic RBC 0-2 (0-5) /HPF Urine Microscopic WBC 0-2 (0-5) /HPF Ur Epithelial Cells None Seen (None Seen) /HPF Urine Bacteria None Seen (None Seen) /HPF Urine Culture Reflexed ORDERED SEPARATELY (NO) - Radiology Impressions Radiology Exams & Impressions: Radiology Procedures Category Date Time Status ABDOMEN AND PELVIS W/0 CONTRAS [CT] Stat Exams 10/12/23 12:49 Completed CHEST 1 VIEW (PORTABLE) Routine Exams 10/12/23 18:12 Taken - Other Procedures and Tests Respiratory Therapy 10/12/23 17:31 Oxygen Nasal Cannula 3 lpm Telemedicine Encounter - Telemedicine Encounter Telemedicine Encounter: The entirety of this encounter was performed via Telemedicine" MALINA Encounter - MALINA Encounter Attestation MALINA Encounter Attestation: "IhavepersonallyseenandexHuan,ANDREA CRABTREEY andhavediscussed pertinent aspects of their care with Cinthya Carmona and agree with the history, physical exam (any modifications based on my personal exam will be noted below), assessment, and plan as outlined in original note. Please see immediately below for my summary of findings and additional assessment and plan along with any meaningful corrections/explanations to the Subjective/Objective portions of the MALINA note will be noted." My portion of the encounter took place via telemedicine. -Patient has history of osteoporosis and presenting with acute on chronic upper/mid back pain due to known compression fractures. Unable to care for herself at this time. Will admit for pain control (try higher dose tylenol as patient got very somnolent with norco at last admission) and possible alternate discharge setting (?ECF)
[2023-10-12 18:08] LABS: Absolute Neutrophil Ct (ANC) 11.37 x10^3/uL (1.4-6.9); BASOPHIL % 0.2 % (0.0-0.4); Basophil (Absolute #) 0.02 x10^3/uL (0-0.4); Eosinophil % 0.1 % (0.00-5.0); Eosinophil (Absolute #) 0.01 x10^3/uL (0-0.5); Hematocrit 41.3 % (35-47); Hemoglobin 13.8 g/dL (12.0-16.0); IMMATURE GRAN # 0.11 x10^3u/L (0.00-0.03); IMMATURE GRAN % 0.8 % (0.00-0.4); Lymphocyte (Absolute #) 0.94 x10^3/uL (1.0-4.6); Lymphocytes % 7.2 % (24.0-44.0); Mean Cell Volume 90.4 fL (78-100); Mean Corpuscular Hemoglobin 30.2 pg (26-32); Mean Corpuscular Hgb Concent. 33.4 g/dL (32-36); Mean Platelet Volume 10.7 fL (7.5-11.0); Monocyte (Absolute #) 0.67 x10^3/uL (0.0-1.3); Monocytes % 5.1 % (0.0-12.0); Neutrophil % 86.6 % (36.0-66.0); Platelet Count 376 x10^3/uL (150-450); Red Blood Count 4.57 x10^6/uL (4.1-5.4); White Blood Count 13.1 x10^3/uL (4.0-10.5)
[2023-10-12 18:14] LABS: ALBUMIN 4.4 g/dL (3.5-5.0); ANION GAP 14.8 MEQ/L (5-15); BILIRUBIN,TOTAL 1.3 mg/dL (0.2-1.3); Calcium 9.9 mg/dL (8.4-10.2); Creatinine 1 0.86 mg/dL (0.52-1.04); EST GLOMERULAR FILTRATION RATE 64.9 ML/MIN; Potassium 4.4 mmol/L (3.5-5.1); Total Protein 7.9 g/dL (6.3-8.2)
[2023-10-12] MEDS ORDERED: Sodium Chloride 0.9% 1000 ML 0 ML ONE (18:53)
[2023-10-12] MEDS: Sodium Chloride 0.9% 500 ML 500 ML IV SCH (18:55)
--- NOTE | 2023-10-12 20:22 | XRAY ---
CLINICAL HISTORY: sob COMPARISON: Prior CT abdomen dated 10/12/2023 TECHNIQUE: An X-ray of the chest was performed in frontal projection. FINDINGS: The cardiac shadow appears enlarged. Mild prominence of perihilar vascular markings probably due to mild vascular congestion. Interstitial markings in both lower lung zones are probably due to evolving interstitial edema. The lungs are well aerated. No hydrothorax or pneumothorax seen. No fracture seen. There is no evidence of any focal area of consolidation. The hilar and pulmonary vasculature is normal. Both costophrenic angles are not clearly delineated Vertebroplasty of T9-T10 vertebra noted IMPRESSION: Cardiomegaly with Mild pulmonary vascular congestion. The possibility of evolving interstitial edema should be considered. Clinical correlation is suggested. Electronically Signed by: Mahesh Guerra MD. (10/12/2023 20:18:24 EDT)
[2023-10-12] MEDS: Lopressor 25MG Tab PO SCH (21:15)
[2023-10-12] MEDS: ZOCOR 20MG PO SCH (21:15)
[2023-10-12] MEDS: NON-FORMULARY ITEM (Ubidecarenone [Co Q-10] 100 MG Capsule) PO SCH (21:15)
[2023-10-12] MEDS: Pepcid 20 MG PO SCH (21:15)
[2023-10-12] MEDS: TRANDATE 20 MG/4 ML SYRINGE IV PRN (23:31)
[2023-10-12] MEDS: TYLENOL EXTRA STRENGTH 500 MG PO PRN (23:31)
[2023-10-13 05:41] LABS: Absolute Neutrophil Ct (ANC) 9.27 x10^3/uL (1.4-6.9); BASOPHIL % 0.2 % (0.0-0.4); Basophil (Absolute #) 0.02 x10^3/uL (0-0.4); Eosinophil % 0.1 % (0.00-5.0); Eosinophil (Absolute #) 0.01 x10^3/uL (0-0.5); Hematocrit 38.2 % (35-47); Hemoglobin 12.9 g/dL (12.0-16.0); IMMATURE GRAN # 0.08 x10^3u/L (0.00-0.03); IMMATURE GRAN % 0.7 % (0.00-0.4); Lymphocyte (Absolute #) 0.82 x10^3/uL (1.0-4.6); Lymphocytes % 7.3 % (24.0-44.0); Mean Cell Volume 89.3 fL (78-100); Mean Corpuscular Hemoglobin 30.1 pg (26-32); Mean Corpuscular Hgb Concent. 33.8 g/dL (32-36); Mean Platelet Volume 9.5 fL (7.5-11.0); Monocyte (Absolute #) 0.96 x10^3/uL (0.0-1.3); Monocytes % 8.6 % (0.0-12.0); Neutrophil % 83.1 % (36.0-66.0); Platelet Count 324 x10^3/uL (150-450); Red Blood Count 4.28 x10^6/uL (4.1-5.4); Red Cell Distribution Width 13.2 % (11.5-14.0); White Blood Count 11.2 x10^3/uL (4.0-10.5)
[2023-10-13 06:01] LABS: ALBUMIN 3.8 g/dL (3.5-5.0); ANION GAP 10.1 MEQ/L (5-15); BILIRUBIN,TOTAL 1.2 mg/dL (0.2-1.3); Calcium 8.8 mg/dL (8.4-10.2); Creatinine 1 0.68 mg/dL (0.52-1.04); EST GLOMERULAR FILTRATION RATE 83.7 ML/MIN; Potassium 3.7 mmol/L (3.5-5.1); Total Protein 6.8 g/dL (6.3-8.2)
[2023-10-13] MEDS ORDERED: CLONIDINE 0.1 MG TABLET PO PRN (07:32)
[2023-10-13] MEDS ORDERED: TRANDATE 20 MG/4 ML SYRINGE IV PRN (07:45)
[2023-10-13] MEDS ORDERED: MEDICATION INTERVENTION MC SCH (08:15)
[2023-10-13] MEDS: ULTRAM 50 MG PO PRN (08:44)
[2023-10-13] MEDS: ECOTRIN 81 MG PO SCH (08:55)
[2023-10-13] MEDS: Ocuvite Tablet PO SCH (08:55)
[2023-10-13] MEDS: Calcium 500MG W/Vit D Tablet PO SCH (08:56)
[2023-10-13] MEDS: ENOXAPARIN SODIUM SQ SCH (09:02)
[2023-10-13] MEDS: Sodium Chloride 0.9% 1000 ML 1,000 ML IV SCH (10:11)
--- NOTE | 2023-10-13 11:41 | PCM.NOTE ---
Date and Time: 10/13/23 1136 Subjective Assessment: is a 88 year old female with a pmhx of HLD, GERD, HTN, as well as h/o compression fractures to the spine. She presented to ED 10/12/23 with complaints of back pain. Patient states she has chronic back pain secondary to compression fractures but it was more severe today with any exertion which prompted her to report to the ED for pain control. Pain is mostly in her mid to lower back. Sharp/aching/constant in characteristic. Patient pain was 5/10 on numerical pain scale after receiving Norflex, solumedrol, and [place] in ED. She does wear a back brace at home. No bowel/bladder dysfunction. Sensation intact. Of note patient was recently admitted from 10/04/23- 10/05/23 for a ground level fall at home and subsequential pain following. During that hospital course Ortho was consulted as there was a question on one of the CT scans regarding nonossified piece of bone at the tip of the greater trochanter documented as a new finding. The patient does have a history of a previous subtrochanteric fracture, which required an IM nail. No further intervention needed. She also had recent ER visit 10/08/23 with similar complaints. Flexeril was added to her pain control regimen at that visit. Patient resides at assisted living. CT of the abdomen with no acute findings. There is colonic diverticulosis and chronic osteoporotic fractures present. UA unremarkable. Plan is for pain control. Patient wanting SNF placement on discharge vs assisted living where she currently resides. Pain has improved with addition of tramadol today, pain 5/10 and tolerable she explains. She wants to go to a correction and explained her can no longer help her. Will have PT and OT eval for needs tomorrow. Will discuss with case management tomorrow further plan of care. PCP to consider referral to pain management. - Review of Systems Constitutional: Weakness, No Fever, No Chills Eyes: No Symptoms Ears, Nose, & Throat: No Symptoms Respiratory: No Cough, No Short Of Breath Cardiac: No Chest Pain, No Edema, No Syncope Abdominal/Gastrointestinal: No Abdominal Pain, No Nausea, No Vomiting, No Diarrhea Genitourinary Symptoms: No Dysuria Musculoskeletal: Back Pain (lumbar), No Neck Pain Skin: No Rash Neurological: No Dizziness, No Focal Weakness, No Sensory Changes Psychological: No Symptoms Endocrine: No Symptoms Hematologic/Lymphatic: No Symptoms Immunological/Allergic: No Symptoms Objective Exam General Appearance: no apparent distress, alert Neurologic Exam: alert, oriented x 3, cooperative, normal mood/affect, nml cerebellar function, sensation nml, No motor deficits Skin Exam: normal color, warm, dry Eye Exam: PERRL, EOMI, eyes nml inspection Ears, Nose, Throat Exam: normal ENT inspection, pharynx normal, moist mucous membranes Neck Exam: normal inspection, non-tender, supple, full range of motion Respiratory Exam: normal breath sounds, lungs clear, No respiratory distress Cardiovascular Exam: regular rate/rhythm, normal heart sounds Gastrointestinal/Abdomen Exam: soft, No tenderness, No mass Extremity Exam: normal inspection, normal range of motion Back Exam: normal inspection, normal range of motion, No CVA tenderness, No vertebral tenderness Pelvic Exam: deferred Rectal Exam: deferred Objective Data Vital Signs: Vital Signs - 24 hr Temp Pulse Resp BP Pulse Ox 10/13/23 08:35 98 10/13/23 07:41 97.6 F 76 16 160/72 99 10/13/23 04:00 97.2 F 95 H 20 141/82 94 L 10/12/23 23:30 97.7 F 86 24 184/92 99 10/12/23 20:00 98.0 F 90 16 147/72 98 10/12/23 19:05 98 10/12/23 18:02 85 20 98 10/12/23 17:31 98 10/12/23 17:21 97.8 F 84 20 134/67 99 10/12/23 16:42 83 20 180/98 93 L 10/12/23 14:00 143/82 98 10/12/23 13:45 65 18 100/60 95 10/12/23 12:37 97.4 F 94 H 17 206/80 100 Pain Assessment - Last Documented Pain Intensity 2 Pain Scale Used 0-10 Pain Scale Intake and Output: Intake & Output 10/10/23 10/11/23 10/12/23 10/13/23 11:59 11:59 11:59 11:59 Intake Total 1107 Balance 1107 Weight 44.3 kg Lab Results: Lab Results-Last 24 Hours 10/12/23 10/12/23 10/12/23 Range/Units 12:45 12:45 12:48 WBC 13.1 H (4.0-10.5) x10^3/uL RBC 4.57 (4.1-5.4) x10^6/uL Hgb 13.8 (12.0-16.0) g/dL Hct 41.3 (35-47) % MCV 90.4 (78-100) fL MCH 30.2 (26-32) pg MCHC 33.4 (32-36) g/dL RDW 13.0 (11.5-14.0) % Plt Count 376 (150-450) x10^3/uL MPV 10.7 (7.5-11.0) fL Gran % 86.6 H (36.0-66.0) % Immature Gran % (Auto) 0.8 H (0.00-0.4) % Nucleat RBC Rel Count 0.0 (0.00-0.1) % Eos # (Auto) 0.01 (0-0.5) x10^3/uL Immature Gran # (Auto) 0.11 H (0.00-0.03) x10^3u/L Absolute Lymphs (auto) 0.94 L (1.0-4.6) x10^3/uL Absolute Monos (auto) 0.67 (0.0-1.3) x10^3/uL Absolute Nucleated RBC 0.00 (0.00-0.01) x10^3u/L Lymphocytes % 7.2 L (24.0-44.0) % Monocytes % 5.1 (0.0-12.0) % Eosinophils % 0.1 (0.00-5.0) % Basophils % 0.2 (0.0-0.4) % Absolute Granulocytes 11.37 H (1.4-6.9) x10^3/uL Basophils # 0.02 (0-0.4) x10^3/uL Sodium 133 L (135-145) mmol/L Potassium 4.4 (3.5-5.1) mmol/L Chloride 98 (98-107) mmol/L Carbon Dioxide 24 (22-30) mmol/L Anion Gap 14.8 (5-15) MEQ/L BUN 20 H (7-17) mg/dL Creatinine 0.86 (0.52-1.04) mg/dL Estimated GFR 64.9 ML/MIN Glucose 156 H (74-106) mg/dL Hemoglobin A1c (4.5-6.0) % Calcium 9.9 (8.4-10.2) mg/dL Total Bilirubin 1.30 (0.2-1.3) mg/dL AST 44 H (14-36) U/L ALT 29 (0-35) U/L Alkaline Phosphatase 86 (38-126) U/L Serum Total Protein 7.9 (6.3-8.2) g/dL Albumin 4.4 (3.5-5.0) g/dL Urine Color Yellow (Yellow) Urine Appearance Clear (Clear) Urine pH 6.5 (4.6-8.0) Ur Specific [place] 1.015 (1.005-1.030) Urine Protein Trace A (Negative) Urine Glucose (UA) Negative (Negative) mg/dL Urine Ketones Negative (Negative) Urine Blood Negative (Negative) Urine Nitrite Negative (Negative) Urine Bilirubin Negative (Negative) Urine Urobilinogen 1.0 A (0.2) mg/dL Ur Leukocyte Esterase Negative (Negative) U Hyaline Cast (Auto) NONE SEEN (0-2) /LPF Urine Microscopic RBC 0-2 (0-5) /HPF Urine Microscopic WBC 0-2 (0-5) /HPF Ur Epithelial Cells None Seen (None Seen) /HPF Urine Bacteria None Seen (None Seen) /HPF Urine Culture Reflexed ORDERED SEPARATELY (NO) 10/13/23 10/13/23 10/13/23 Range/Units 05:30 05:36 05:36 WBC 11.2 H (4.0-10.5) x10^3/uL RBC 4.28 (4.1-5.4) x10^6/uL Hgb 12.9 (12.0-16.0) g/dL Hct 38.2 (35-47) % MCV 89.3 (78-100) fL MCH 30.1 (26-32) pg MCHC 33.8 (32-36) g/dL RDW 13.2 (11.5-14.0) % Plt Count 324 (150-450) x10^3/uL MPV 9.5 (7.5-11.0) fL Gran % 83.1 H (36.0-66.0) % Immature Gran % (Auto) 0.7 H (0.00-0.4) % Nucleat RBC Rel Count 0.0 (0.00-0.1) % Eos # (Auto) 0.01 (0-0.5) x10^3/uL Immature Gran # (Auto) 0.08 H (0.00-0.03) x10^3u/L Absolute Lymphs (auto) 0.82 L (1.0-4.6) x10^3/uL Absolute Monos (auto) 0.96 (0.0-1.3) x10^3/uL Absolute Nucleated RBC 0.00 (0.00-0.01) x10^3u/L Lymphocytes % 7.3 L (24.0-44.0) % Monocytes % 8.6 (0.0-12.0) % Eosinophils % 0.1 (0.00-5.0) % Basophils % 0.2 (0.0-0.4) % Absolute Granulocytes 9.27 H (1.4-6.9) x10^3/uL Basophils # 0.02 (0-0.4) x10^3/uL Sodium 138 (135-145) mmol/L Potassium 3.7 (3.5-5.1) mmol/L Chloride 102 (98-107) mmol/L Carbon Dioxide 29 (22-30) mmol/L Anion Gap 10.1 (5-15) MEQ/L BUN 19 H (7-17) mg/dL Creatinine 0.68 (0.52-1.04) mg/dL Estimated GFR 83.7 ML/MIN Glucose 123 H (74-106) mg/dL Hemoglobin A1c 5.56 (4.5-6.0) % Calcium 8.8 (8.4-10.2) mg/dL Total Bilirubin 1.20 (0.2-1.3) mg/dL AST 25 (14-36) U/L ALT 22 (0-35) U/L Alkaline Phosphatase 79 (38-126) U/L Serum Total Protein 6.8 (6.3-8.2) g/dL Albumin 3.8 (3.5-5.0) g/dL Urine Color (Yellow) Urine Appearance (Clear) Urine pH (4.6-8.0) Ur Specific [place] (1.005-1.030) Urine Protein (Negative) Urine Glucose (UA) (Negative) mg/dL Urine Ketones (Negative) Urine Blood (Negative) Urine Nitrite (Negative) Urine Bilirubin (Negative) Urine Urobilinogen (0.2) mg/dL Ur Leukocyte Esterase (Negative) U Hyaline Cast (Auto) (0-2) /LPF Urine Microscopic RBC (0-5) /HPF Urine Microscopic WBC (0-5) /HPF Ur Epithelial Cells (None Seen) /HPF Urine Bacteria (None Seen) /HPF Urine Culture Reflexed (NO) Radiology Exams: Radiology Procedures Category Date Time Status ABDOMEN AND PELVIS W/0 CONTRAS [CT] Stat Exams 10/12/23 12:49 Completed CHEST 1 VIEW (PORTABLE) Routine Exams 10/12/23 18:12 Completed Assessment/Plan (1) Chronic back pain Current Visit: Yes Status: Acute Assessment & Plan: - acute on chronic -Recent hospitalization records/scans reviewed, no recent trauma, no further im aging needed at this time -Patient given Norflex/solumedrol in ED -Pain control with tramadol prn - PT/ OT - Possible correction placement, she does not want to go back to assisted living Code(s): M54.9 - DORSALGIA, UNSPECIFIED; G89.29 - OTHER CHRONIC PAIN (2) Compression fracture of thoracic vertebra Current Visit: No Status: Chronic Onset Date: ~08/26/17 Assessment & Plan: -recent imaging reviewed as well as ortho recommendations from 10/03 visit, will continue recommendations of ambulate to tolerance, weight bearing as tolerated Code(s): S22.000A - WEDGE COMPRESSION FRACTURE OF UNSP THORACIC VERTEBRA, INIT (3) HLD (hyperlipidemia) Current Visit: No Status: Chronic Assessment & Plan: -continue home meds Code(s): E78.5 - HYPERLIPIDEMIA, UNSPECIFIED (4) HTN (hypertension) Current Visit: No Status: Chronic Assessment & Plan: -most likely elevated secondary to pain response, stable -continue home meds VTE: Lovenox PPI: pepcid Next of Kin: Yary Daigle [phone] D/C plan: tomorrow Code status: Full Code(s): I10 - ESSENTIAL (PRIMARY) HYPERTENSION
[2023-10-13] MEDS: Naprosyn 500 MG PO PRN (12:50)
[2023-10-14 05:02] LABS: Hematocrit 38.3 % (35-47); Hemoglobin 12.7 g/dL (12.0-16.0); Mean Cell Volume 90.8 fL (78-100); Mean Corpuscular Hemoglobin 30.1 pg (26-32); Mean Corpuscular Hgb Concent. 33.2 g/dL (32-36); Mean Platelet Volume 9.4 fL (7.5-11.0); Platelet Count 307 x10^3/uL (150-450); Red Blood Count 4.22 x10^6/uL (4.1-5.4); Red Cell Distribution Width 13.2 % (11.5-14.0); White Blood Count 12.3 x10^3/uL (4.0-10.5)
[2023-10-14 05:31] LABS: ANION GAP 7.8 MEQ/L (5-15); Calcium 8.5 mg/dL (8.4-10.2); Creatinine 1 0.6 mg/dL (0.52-1.04); EST GLOMERULAR FILTRATION RATE 86.3 ML/MIN; Potassium 3.4 mmol/L (3.5-5.1)
[2023-10-14] MEDS: Klor Con PO SCH (08:56)
--- NOTE | 2023-10-14 12:08 | PCM.NOTE ---
Date and Time: 10/14/23 1201 Subjective Assessment: 10/13/23 is a 88 year old female with a pmhx of HLD, GERD, HTN, as well as h/o compression fractures to the spine. She presented to ED 10/12/23 with complaints of back pain. Patient states she has chronic back pain secondary to compression fractures but it was more severe today with any exertion which prompted her to report to the ED for pain control. Pain is mostly in her mid to lower back. Sharp/aching/constant in characteristic. Patient pain was 5/10 on numerical pain scale after receiving Norflex, solumedrol, and [place] in ED. She does wear a back brace at home. No bowel/bladder dysfunction. Sensation intact. Of note patient was recently admitted from 10/04/23- 10/05/23 for a ground level fall at home and subsequential pain following. During that hospital course Ortho was consulted as there was a question on one of the CT scans regarding nonossified piece of bone at the tip of the greater trochanter documented as a new finding. The patient does have a history of a previous subtrochanteric fracture, which required an IM nail. No further intervention needed. She also had recent ER v isit 10/08/23 with similar complaints. Flexeril was added to her pain control regimen at that visit. Patient resides at assisted living. CT of the abdomen with no acute findings. There is colonic diverticulosis and chronic osteoporotic fractures present. UA unremarkable. Plan is for pain control. Patient wanting SNF placement on discharge vs assisted living where she currently resides. Pain has improved with addition of tramadol today, pain 5/10 and tolerable she explains. She wants to go to a [facility] and explained her can no longer help her. Will have PT and OT eval for needs tomorrow. Will discuss with case management tomorrow further plan of care. PCP to consider referral to pain management. 10/14/23 Pt resting in bed. She did well with PT but had some radiating pain from lumbar region around to sides. She is rather sensitive to meds and narcotics have caused increased sedation in the past. Will start low dose gabapentin at bedtime for nerve pain. She continues to want [facility] placement. Discussed with case management. She denies CP, SOB, abd. pain, N/V/D. - Review of Systems Constitutional: No Fever, No Chills Eyes: No Symptoms Ears, Nose, & Throat: No Symptoms Respiratory: No Cough, No Short Of Breath Cardiac: No Chest Pain, No Edema, No Syncope Abdominal/Gastrointestinal: No Abdominal Pain, No Nausea, No Vomiting, No Diarrhea Genitourinary Symptoms: No Dysuria Musculoskeletal: Back Pain (lumbar with radiculopathy), No Neck Pain Skin: No Rash Neurological: No Dizziness, No Focal Weakness, No Sensory Changes Psychological: No Symptoms Endocrine: No Symptoms Hematologic/Lymphatic: No Symptoms Immunological/Allergic: No Symptoms Objective Exam General Appearance: no apparent distress, alert, thin Neurologic Exam: alert, oriented x 3, cooperative, normal mood/affect, nml cerebellar function, sensation nml, No motor deficits Skin Exam: normal color, warm, dry Eye Exam: PERRL, EOMI, eyes nml inspection Ears, Nose, Throat Exam: normal ENT inspection, pharynx normal, moist mucous membranes Neck Exam: normal inspection, non-tender, supple, full range of motion Respiratory Exam: normal breath sounds, lungs clear, No respiratory distress Cardiovascular Exam: regular rate/rhythm, normal heart sounds Gastrointestinal/Abdomen Exam: soft, No tenderness, No mass Extremity Exam: normal inspection, normal range of motion Back Exam: normal inspection, normal range of motion, decreased range of motion (lumbar back pain with radiculopathy with walking.), No CVA tenderness, No vertebral tenderness Pelvic Exam: deferred Rectal Exam: deferred Objective Data Vital Signs: Vital Signs - 24 hr Temp Pulse Resp BP Pulse Ox 10/14/23 08:00 97.3 F 76 17 99 10/14/23 07:22 95 10/14/23 03:57 97.7 F 85 18 142/89 96 10/13/23 23:17 97.9 F 82 22 169/84 99 10/13/23 21:25 92 L 10/13/23 20:00 97.4 F 83 20 136/62 98 10/13/23 16:00 97.8 F 80 15 166/78 98 Pain Assessment - Last Documented Pain Intensity 2 Pain Scale Used 0-10 Pain Scale Intake and Output: Intake & Output 10/12/23 10/13/23 10/14/23 10/15/23 11:59 11:59 11:59 11:59 Intake Total 1107 820 Balance 1107 820 Weight 44.3 kg 130 kg Lab Results: Lab Results-Last 24 Hours 10/14/23 10/14/23 10/14/23 Range/Units 04:41 04:41 05:00 WBC 12.3 H (4.0-10.5) x10^3/uL RBC 4.22 (4.1-5.4) x10^6/uL Hgb 12.7 (12.0-16.0) g/dL Hct 38.3 (35-47) % MCV 90.8 (78-100) fL MCH 30.1 (26-32) pg MCHC 33.2 (32-36) g/dL RDW 13.2 (11.5-14.0) % Plt Count 307 (150-450) x10^3/uL MPV 9.4 (7.5-11.0) fL Sodium 133 L (135-145) mmol/L Potassium 3.4 L (3.5-5.1) mmol/L Chloride 101 (98-107) mmol/L Carbon Dioxide 27 (22-30) mmol/L Anion Gap 7.8 (5-15) MEQ/L BUN 18 H (7-17) mg/dL Creatinine 0.60 (0.52-1.04) mg/dL Estimated GFR 86.3 ML/MIN Glucose 103 (74-106) mg/dL Calcium 8.5 (8.4-10.2) mg/dL Magnesium 2.0 (1.6-2.3) mg/dL Radiology Exams: Radiology Procedures Category Date Time Status ABDOMEN AND PELVIS W/0 CONTRAS [CT] Stat Exams 10/12/23 12:49 Completed CHEST 1 VIEW (PORTABLE) Routine Exams 10/12/23 18:12 Completed Multi-Disciplinary Progress Notes: Multi-Disciplinary Progress Notes 10/14/23 10:21 (created 10/14/23 11:04) Case Management Note by Rocio Boyd PT EVAL FAXED TO THE [facility] FOR THEM TO SUBMIT WITH INSURANCE FOR PA Initialized on 10/14/23 11:04 - END OF NOTE 10/14/23 10:13 Case Management Note by Michelle Bolanos PAPERWORK DONE- NO LEVEL II REQUIRED. COPIES PLACED ON CHART REFERRAL FAXED TO [facility]- THEY WILL NEED SENT THE PT EVAL WHEN AVAILABLE Initialized on 10/14/23 10:13 - END OF NOTE Assessment/Plan (1) Chronic back pain Current Visit: Yes Status: Acute Code(s): M54.9 - DORSALGIA, UNSPECIFIED; G 89.29 - OTHER CHRONIC PAIN (2) Compression fracture of thoracic vertebra Current Visit: No Status: Chronic Onset Date: ~08/26/17 Code(s): S22.000A - WEDGE COMPRESSION FRACTURE OF UNSP THORACIC VERTEBRA, INIT (3) HLD (hyperlipidemia) Current Visit: No Status: Chronic Code(s): E78.5 - HYPERLIPIDEMIA, UNSPECIFIED (4) HTN (hypertension) Current Visit: No Status: Chronic Assessment & Plan: (1) Chronic back pain Current Visit: Yes Status: Acute Assessment & Plan: - acute on chronic -Recent hospitalization records/scans reviewed, no recent trauma, no further imaging needed at this time -Patient given Norflex/solumedrol in ED -Pain control with tramadol prn - PT/ OT - Possible [facility] placement, she does not want to go back to assisted living 10/13 - start Gabapentin 100mg at HS - increased radicular pain with ambulation Code(s): M54.9 - DORSALGIA, UNSPECIFIED; G89.29 - OTHER CHRONIC PAIN (2) Compression fracture of thoracic vertebra Current Visit: No Status: Chronic Onset Date: ~08/26/17 Assessment & Plan: -recent imaging reviewed as well as ortho recommendations from 10/03 visit, will continue recommendations of ambulate to tolerance, weight bearing as tolerated Code(s): S22.000A - WEDGE COMPRESSION FRACTURE OF UNSP THORACIC VERTEBRA, INIT (3) HLD (hyperlipidemia) Current Visit: No Status: Chronic Assessment & Plan: -continue home meds Code(s): E78.5 - HYPERLIPIDEMIA, UNSPECIFIED (4) HTN (hypertension) Current Visit: No Status: Chronic Assessment & Plan: -most likely elevated secondary to pain response, stable -continue home meds VTE: Lovenox PPI: pepcid Next of Kin: Yary Daigle [phone] D/C plan: tomorrow Code status: Full Code(s): I10 - ESSENTIAL (PRIMARY) HYPERTENSION
[2023-10-14] MEDS: Neurontin PO SCH (21:22)
[2023-10-15 08:09] LABS: Hematocrit 36.7 % (35-47); Hemoglobin 12.3 g/dL (12.0-16.0); Mean Cell Volume 90.6 fL (78-100); Mean Corpuscular Hemoglobin 30.4 pg (26-32); Mean Corpuscular Hgb Concent. 33.5 g/dL (32-36); Mean Platelet Volume 9.2 fL (7.5-11.0); Platelet Count 303 x10^3/uL (150-450); Red Blood Count 4.05 x10^6/uL (4.1-5.4); Red Cell Distribution Width 13.2 % (11.5-14.0); White Blood Count 7.7 x10^3/uL (4.0-10.5)
[2023-10-15 08:24] LABS: ANION GAP 9.1 MEQ/L (5-15); Calcium 8.6 mg/dL (8.4-10.2); Creatinine 1 0.63 mg/dL (0.52-1.04); EST GLOMERULAR FILTRATION RATE 85.3 ML/MIN; Potassium 4.2 mmol/L (3.5-5.1)
--- NOTE | 2023-10-15 12:00 | PCM.NOTE ---
Date and Time: 10/15/23 1152 Subjective Assessment: 10/13/23 is a 88 year old female with a pmhx of HLD, GERD, HTN, as well as h/o compression fractures to the spine. She presented to ED 10/12/23 with complaints of back pain. Patient states she has chronic back pain secondary to compression fractures but it was more severe today with any exertion which prompted her to report to the ED for pain control. Pain is mostly in her mid to lower back. Sharp/aching/constant in characteristic. Patient pain was 5/10 on numerical pain scale after receiving Norflex, solumedrol, and [place] in ED. She does wear a back brace at home. No bowel/bladder dysfunction. Sensation intact. Of note patient was recently admitted from 10/04/23- 10/05/23 for a ground level fall at home and subsequential pain following. During that hospital course Ortho was consulted as there was a question on one of the CT scans regarding nonossified piece of bone at the tip of the greater trochanter documented as a new finding. The patient does have a history of a previous subtrochanteric fracture, which required an IM nail. No further intervention needed. She also had recent ER v isit 10/08/23 with similar complaints. Flexeril was added to her pain control regimen at that visit. Patient resides at assisted living. CT of the abdomen with no acute findings. There is colonic diverticulosis and chronic osteoporotic fractures present. UA unremarkable. Plan is for pain control. Patient wanting SNF placement on discharge vs assisted living where she currently resides. Pain has improved with addition of tramadol today, pain 5/10 and tolerable she explains. She wants to go to a retirement and explained her can no longer help her. Will have PT and OT eval for needs tomorrow. Will discuss with case management tomorrow further plan of care. PCP to consider referral to pain management. 10/14/23 Pt resting in bed. She did well with PT but had some radiating pain from lumbar region around to sides. She is rather sensitive to meds and narcotics have caused increased sedation in the past. Will start low dose gabapentin at bedtime for nerve pain. She continues to want retirement placement. Discussed with case management. She denies CP, SOB, abd. pain, N/V/D. 10/15/23 Pt resting in bed. She states she feels a bit groggy this morning. Gabapentin for lumbar radicular nerve pain started at bedtime last night. This medication could be causing this side effect. Explained sxs should improve as the day progresses. She does feel the medication was helpful and has less pain than yesterday. Pain continues to increase with activity. Will continue Gabapetin at HS at d/c. She is awaiting placement to the [facility]. Once approved she will be able to d/c. She denies any further concerns at this time. - Review of Systems Constitutional: No Fever, No Chills Eyes: No Symptoms Ears, Nose, & Throat: No Symptoms Respiratory: No Cough, No Short Of Breath Cardiac: No Chest Pain, No Edema, No Syncope Abdominal/Gastrointestinal: No Abdominal Pain, No Nausea, No Vomiting, No Diarrhea Genitourinary Symptoms: No Dysuria Musculoskeletal: Back Pain, No Neck Pain Skin: No Rash Neurological: No Dizziness, No Focal Weakness, No Sensory Changes Psychological: No Symptoms Endocrine: No Symptoms Hematologic/Lymphatic: No Symptoms Immunological/Allergic: No Symptoms Objective Exam General Appearance: no apparent distress, alert Neurologic Exam: alert, oriented x 3, cooperative, normal mood/affect, nml cerebellar function, sensation nml, No motor deficits Skin Exam: normal color, warm, dry Eye Exam: PERRL, EOMI, eyes nml inspection Ears, Nose, Throat Exam: normal ENT inspection, pharynx normal, moist mucous membranes Neck Exam: normal inspection, non-tender, supple, full range of motion Respiratory Exam: normal breath sounds, lungs clear, No respiratory distress Cardiovascular Exam: regular rate/rhythm, normal heart sounds Gastrointestinal/Abdomen Exam: soft, No tenderness, No mass Extremity Exam: normal inspection Back Exam: normal inspection, decreased range of motion (lumbar), No CVA tenderness, No vertebral tenderness Pelvic Exam: deferred Rectal Exam: deferred Objective Data Vital Signs: Vital Signs - 24 hr Temp Pulse Resp BP Pulse Ox 10/15/23 09:46 94 L 10/15/23 08:00 98 F 82 15 123/64 94 L 10/15/23 00:00 97.5 F 65 16 157/88 99 10/14/23 19:18 97.5 F 54 L 16 144/72 99 10/14/23 18:33 95 10/14/23 16:00 98.0 F 81 17 144/68 97 10/14/23 12:00 98.7 F 72 17 143/70 96 Pain Assessment - Last Documented Pain Intensity 0 Pain Scale Used 0-10 Pain Scale Intake and Output: Intake & Output 10/12/23 10/13/23 10/14/23 10/15/23 11:59 11:59 11:59 11:59 Intake Total 1107 820 480 Balance 1107 820 480 Weight 44.3 kg 44 kg Lab Results: Lab Results-Last 24 Hours 10/14/23 10/15/23 10/15/23 Range/Units 21:30 08:06 08:06 WBC 7.7 (4.0-10.5) x10^3/uL RBC 4.05 L (4.1-5.4) x10^6/uL Hgb 12.3 (12.0-16.0) g/dL Hct 36.7 (35-47) % MCV 90.6 (78-100) fL MCH 30.4 (26-32) pg MCHC 33.5 (32-36) g/dL RDW 13.2 (11.5-14.0) % Plt Count 303 (150-450) x10^3/uL MPV 9.2 (7.5-11.0) fL Sodium 134 L (135-145) mmol/L Potassium 4.2 D (3.5-5.1) mmol/L Chloride 104 (98-107) mmol/L Carbon Dioxide 25 (22-30) mmol/L Anion Gap 9.1 (5-15) MEQ/L BUN 17 (7-17) mg/dL Creatinine 0.63 (0.52-1.04) mg/dL Estimated GFR 85.3 ML/MIN Glucose 96 (74-106) mg/dL POC Glucometer 117 H (74 to 106) mg/dL Calcium 8.6 (8.4-10.2) mg/dL Multi-Disciplinary Progress Notes: Multi-Disciplinary Progress Notes 10/15/23 11:41 Case Management Note by Michelle Bolanos S/W DAUGHTER YARY- SHE CONTINUES TO PLAN FOR PATIENT A SHORT TERM REHAB STAY AT [facility] AT TIME OF DC ONCE APPROVED Initialized on 10/15/23 11:41 - END OF NOTE 10/15/23 08:33 Case Management Note by Michelle Bolanos S/W ROBERT AT [facility]- PRECERT STILL PENDING AT THIS TIME Initialized on 10/15/23 08:33 - END OF NOTE 10/14/23 12:14 Case Management Note by Michelle Bolanos [facility] HAS ACCEPTED PATIENT AND WILL START PRECERT Initialized on 10/14/23 12:14 - END OF NOTE Assessment/Plan (1) Chronic back pain Current Visit: Yes Status: Acute Code(s): M54.9 - DORSALGIA, UNSPECIFIED; G89.29 - OTHER CHRONIC PAIN (2) Compression fracture of thoracic vertebra Current Visit: No Status: Chronic Onset Date: ~08/26/17 Code(s): S22.000A - WEDGE COMPRESSION FRACTURE OF UNSP THORACIC VERTEBRA, INIT (3) HLD (hyperlipidemia) Current Visit: No Status: Chronic Code(s): E78.5 - HYPERLIPIDEMIA, UNSPECIFIED (4) HTN (hypertension) Current Visit: No Status: Chronic Assessment & Plan: (1) Chronic back pain Current Visit: Yes Status: Acute Assessment & Plan: - acute on chronic -Recent hospitalization records/scans reviewed, no recent trauma, no further imaging needed at this time -Patient given Norflex/solumedrol in ED -Pain control with tramadol prn - PT/ OT - Possible retirement placement, she does not want to go back to assisted living 10/13 - start Gabapentin 100mg at HS - increased radicular pain with ambulation 10/14 - Pain improved this morning with Gabapentin started last night- pt did have have s/e of being groggy this AM. Code(s): M54.9 - DORSALGIA, UNSPECIFIED; G89.29 - OTHER CHRONIC PAIN (2) Compression fracture of thoracic vertebra Current Visit: No Status: Chronic Onset Date: ~08/26/17 Assessment & Plan: -recent imaging reviewed as well as ortho recommendations from 10/03 visit, will continue recommendations of ambulate to tolerance, weight bearing as tolerated Code(s): S22.000A - WEDGE COMPRESSION FRACTURE OF UNSP THORACIC VERTEBRA, INIT (3) HLD (hyperlipidemia) Current Visit: No Status: Chronic Assessment & Plan: -continue home meds Code(s): E78.5 - HYPERLIPIDEMIA, UNSPECIFIED (4) HTN (hypertension) Current Visit: No Status: Chronic Assessment & Plan: -most likely elevated secondary to pain response, stable -continue home meds VTE: Lovenox PPI: pepcid Next of Kin: Yary Daigle [phone] D/C plan: tomorrow Code status: Full Code(s): I10 - ESSENTIAL (PRIMARY) HYPERTENSION
[2023-10-16 05:04] LABS: Hematocrit 42.3 % (35-47); Mean Cell Volume 91.2 fL (78-100); Mean Corpuscular Hemoglobin 30.2 pg (26-32); Mean Corpuscular Hgb Concent. 33.1 g/dL (32-36); Mean Platelet Volume 9.7 fL (7.5-11.0); Platelet Count 365 x10^3/uL (150-450); Red Blood Count 4.64 x10^6/uL (4.1-5.4); Red Cell Distribution Width 13.5 % (11.5-14.0); White Blood Count 8.7 x10^3/uL (4.0-10.5)
[2023-10-16 05:22] LABS: ANION GAP 10.1 MEQ/L (5-15); Calcium 8.8 mg/dL (8.4-10.2); Creatinine 1 0.71 mg/dL (0.52-1.04); EST GLOMERULAR FILTRATION RATE 81.7 ML/MIN; Potassium 3.9 mmol/L (3.5-5.1)
--- NOTE | 2023-10-16 07:53 | PCM.DS ---
Discharge Summary Date of Admission: 10/12/23 17:08 Date of Discharge: 10/16/23 Admitting Physician: CHRISTOPH JOSUE MD Primary Care Provider: JENIFER RESENDIZ Allergies Allergies lidocaine [From Lidoderm] Adverse Reaction (Severe, Verified 10/15/23 14:16) Rash Hospital Summary - Hospital Course Hospital Course: 10/13/23 is a 88 year old female with a pmhx of HLD, GERD, HTN, as well as h/o compression fractures to the spine. She presented to ED 10/12/23 with complaints of back pain. Patient states she has chronic back pain secondary to compression fractures but it was more severe today with any exertion which prompted her to report to the ED for pain control. Pain is mostly in her mid to lower back. Sharp/aching/constant in characteristic. Patient pain was 5/10 on numerical pain scale after receiving Norflex, solumedrol, and [place] in ED. She does wear a back brace at home. No bowel/bladder dysfunction. Sensation intact. Of note anastasia bentley was recently admitted from 10/04/23- 10/05/23 for a ground level fall at home and subsequential pain following. During that hospital course Ortho was consulted as there was a question on one of the CT scans regarding nonossified piece of bone at the tip of the greater trochanter documented as a new finding. The patient does have a history of a previous subtrochanteric fracture, which required an IM nail. No further intervention needed. She also had recent ER visit 10/08/23 with similar complaints. Flexeril was added to her pain control regimen at that visit. Patient resides at assisted living. CT of the abdomen with no acute findings. There is colonic diverticulosis and chronic osteoporotic fractures present. UA unremarkable. Plan is for pain control. Patient wanting SNF placement on discharge vs assisted living where she currently resides. Pain has improved with addition of tramadol today, pain 5/10 and tolerable she explains. She wants to go to a prison and explained her can no longer help her. Will have PT and OT eval for needs tomorrow. Will discuss with case management tomorrow further plan of care. PCP to consider referral to pain management. 10/14/23 Pt resting in bed. She did well with PT but had some radiating pain from lumbar region around to sides. She is rather sensitive to meds and narcotics have caused increased sedation in the past. Will start low dose gabapentin at bedtime for nerve pain. She continues to want prison placement. Discussed with case management. She denies CP, SOB, abd. pain, N/V/D. 10/15/23 Pt resting in bed. She states she feels a bit groggy this morning. Gabapentin for lumbar radicular nerve pain started at bedtime last night. This medication could be causing this side effect. Explained sxs should improve as the day progresses. She does feel the medication was helpful and has less pain than yesterday. Pain continues to increase with activity. Will continue Gabapetin at at d/c. She is awaiting placement to the [facility]. Once approved she will be able to d/c. She denies any further concerns at this time. 10/16/23 Pt resting in bed. Assisted up to eat breakfast in chair. She was in quite a bit of pain when transition from bed to chair. She again explains the gabapentin is beneficial. Pain is starting to be better controlled. She will benefit from PT at rehab. Plan is to d/c today to rehab and then hopefully transition to assisted living with when ready. She denies any further concerns at this time. - Vitals & Intake/Output Vital Signs: Vital Signs Temperature 96.9 F 10/16/23 04:00 Pulse Rate 74 10/16/23 04:00 Respiratory Rate 18 10/16/23 04:00 Blood Pressure 126/66 10/16/23 04:00 O2 Sat by Pulse Oximetry 95 10/16/23 04:00 Intake & Output: Intake & Output 10/13/23 10/14/23 10/15/23 10/16/23 11:59 11:59 11:59 11:59 Intake Total 1107 820 540 660 Output Total 300 Balance 1107 820 540 360 Weight 44.3 kg 44 kg 44.4 kg - Lab Result Diagrams: 10/16/23 04:45 10/16/23 04:45 Lab Results-Last 24 Hrs: Lab Results-Last 24 Hours 10/15/23 10/15/23 10/15/23 Range/Units 08:06 08:06 08:09 WBC 7.7 (4.0-10.5) x10^3/uL RBC 4.05 L (4.1-5.4) x10^6/uL Hgb 12.3 (12.0-16.0) g/dL Hct 36.7 (35-47) % MCV 90.6 (78-100) fL MCH 30.4 (26-32) pg MCHC 33.5 (32-36) g/dL RDW 13.2 (11.5-14.0) % Plt Count 303 (150-450) x10^3/uL MPV 9.2 (7.5-11.0) fL Sodium 134 L (135-145) mmol/L Potassium 4.2 D (3.5-5.1) mmol/L Chloride 104 (98-107) mmol/L Carbon Dioxide 25 (22-30) mmol/L Anion Gap 9.1 (5-15) MEQ/L BUN 17 (7-17) mg/dL Creatinine 0.63 (0.52-1.04) mg/dL Estimated GFR 85.3 ML/MIN Glucose 96 (74-106) mg/dL Calcium 8.6 (8.4-10.2) mg/dL Magnesium 1.9 (1.6-2.3) mg/dL 10/16/23 10/16/23 Range/Units 04:45 04:45 WBC 8.7 (4.0-10.5) x10^3/uL RBC 4.64 (4.1-5.4) x10^6/uL Hgb 14.0 (12.0-16.0) g/dL Hct 42.3 (35-47) % MCV 91.2 (78-100) fL MCH 30.2 (26-32) pg MCHC 33.1 (32-36) g/dL RDW 13.5 (11.5-14.0) % Plt Count 365 (150-450) x10^3/uL MPV 9.7 (7.5-11.0) fL Sodium 136 (135-145) mmol/L Potassium 3.9 (3.5-5.1) mmol/L Chloride 101 (98-107) mmol/L Carbon Dioxide 29 (22-30) mmol/L Anion Gap 10.1 (5-15) MEQ/L BUN 18 H (7-17) mg/dL Creatinine 0.71 (0.52-1.04) mg/dL Estimated GFR 81.7 ML/MIN Glucose 94 (74-106) mg/dL Calcium 8.8 (8.4-10.2) mg/dL Magnesium (1.6-2.3) mg/dL Micro Results-Entire Visit: Microbiology 10/12/23 12:48 Urine Culture - Final Catherized NO GROWTH - Procedures and Test Procedures and Tests throughout Hospitalization: Therapy Orders & Screens 10/12/23 16:35 PT Eval & Treat ( Order) ONCE Reason for Eval:: Transferring. Strengthening Diagnosis: Chronic back pain 10/12/23 17:31 Oxygen Nasal Cannula 3 lpm Comment: Diagnosis: intractable back pain 10/12/23 17:59 Respiratory Therapy Consult ONCE Comment: Reason For Exam: Diagnosis: intractable back pain 10/13/23 07:53 RT Miscellaneous Order ROUTINE Comment: Physician Instructions: Reason For Exam: wean O2 to keep Sat > 92% Diagnosis: intractable back pain 10/14/23 08:00 OT Screen per Nursing Assess ONCE Comment: Protocol Order Physician Instructions: Greater than 3 points order OT Admission Screening Reason For Exam: Triggered on Admission Diagnosis: intractable back pain Open Wound/Cellutlitis/Pressure Ulcers: No Acute Fx/ORIF/Change in wt bearing status: No Severe MUSCULOSKELETAL pain: Yes Acute CVA w/Hemiparesis/Hemiplegia: No Decreased Functional Mobility/Strength: Yes Sprain/Strain: No Acute Post-op Mobility Dysfunction: No Total Points: 6 PT Screen per Nursing Assess ONCE Comment: Protocol Order Physician Instructions: Greater than 3 points order PT Admission Screenin Reason For Exam: Triggered on Admission Diagnosis: intractable back pain Open Wound/Cellutlitis/Pressure Ulcers: No Acute Fx/ORIF/Change in wt bearing status: No Severe MUSCULOSKELETAL pain: Yes Acute CVA w/Hemiparesis/Hemiplegia: No Decreased Functional Mobility/Strength: Yes Sprain/Strain: No Acute Post-op Mobility Dysfunction: No Total Points: 6 Discharge Exam General Appearance: no apparent distress, alert Neurologic Exam: alert, oriented x 3, cooperative, normal mood/affect, nml cerebellar function, sensation nml, No motor deficits Eye Exam: PERRL, EOMI, eyes nml inspection Ears, Nose, Throat Exam: normal ENT inspection, pharynx normal, moist mucous membranes Neck Exam: normal inspection, non-tender, supple, full range of motion Respiratory Exam: normal breath sounds, lungs clear, No respiratory distress Cardiovascular Exam: regular rate/rhythm, normal heart sounds Gastrointestinal/Abdomen Exam: soft, No tenderness, No mass Pelvic Exam: deferred Rectal Exam: deferred Back Exam: normal inspection, decreased range of motion (lumbar), No CVA tenderness, No vertebral tenderness Extremity Exam: normal inspection, normal range of motion Skin Exam: normal color, warm, dry Final Diagnosis/Problem List - Final Discharge Diagnosis/Problem (1) Chronic back pain Current Visit: Yes Status: Acute Code(s): M54.9 - DORSALGIA, UNSPECIFIED; G89.29 - OTHER CHRONIC PAIN (2) Compression fracture of thoracic vertebra Current Visit: No Status: Chronic Onset Date: ~08/26/17 Code(s): S22.000A - WEDGE COMPRESSION FRACTURE OF UNSP THORACIC VERTEBRA, INIT (3) HLD (hyperlipidemia) Current Visit: No Status: Chronic Code(s): E78.5 - HYPERLIPIDEMIA, UNSPECIFIED (4) HTN (hypertension) Current Visit: No Status: Chronic Assessment & Plan: (1) Chronic back pain Current Visit: Yes Status: Acute Assessment & Plan: - acute on chronic -Recent hospitalization records/scans reviewed, no recent trauma, no further imaging needed at this time -Patient given Norflex/solumedrol in ED -Pain control with tramadol prn - PT/ OT - Possible prison placement, she does not want to go back to assisted living 10/13 - start Gabapentin 100mg at HS - increased radicular pain with ambulation 10/14 - Pain improved this morning with Gabapentin started last night- pt did have have s/e of being groggy this AM. 10/15 - Pain continued with movement and getting up out of bed. Plan is to d/c to rehab today. Code(s): M54.9 - DORSALGIA, UNSPECIFIED; G89.29 - OTHER CHRONIC PAIN (2) Compression fracture of thoracic vertebra Current Visit: No Status: Chronic Onset Date: ~08/26/17 Assessment & Plan: -recent imaging reviewed as well as ortho recommendations from 10/03 visit, will continue recommendations of ambulate to tolerance, weight bearing as tolerated Code(s): S22.000A - WEDGE COMPRESSION FRACTURE OF UNSP THORACIC VERTEBRA, INIT (3) HLD (hyperlipidemia) Current Visit: No Status: Chronic Assessment & Plan: -continue home meds Code(s): E78.5 - HYPERLIPIDEMIA, UNSPECIFIED (4) HTN (hypertension) Current Visit: No Status: Chronic Assessment & Plan: -most likely elevated secondary to pain response, stable -continue home meds 10/15 - BP improved and stable Code(s): I10 - ESSENTIAL (PRIMARY) HYPERTENSION - Discharge Discharge Date: 10/16/23 (rehab facility) Disposition: Home, Self-Care Condition: Stable Prescriptions: New Gabapentin [Neurontin ] 100 mg PO HS 30 Days #30 cap Acetaminophen 500 mg [Tylenol Extra Strength 500 mg] 1,000 mg PO TIDPRN PRN 30 Days #180 tablet PRN Reason: Pain Tramadol HCl 50 mg [Ultram 50 mg] 25 mg PO TIDPRN PRN 3 Days #9 tablet PRN Reason: Pain Continue Calcium Carbonate/Vitamin D3 [Calcium 600-Vit D3 400 Caplet] 1 tab PO DAILY Aspirin EC 81 mg [Ecotrin 81 mg] 81 mg PO DAILY Alendronate Sodium 70 mg [Fosamax 70 MG] 70 mg PO WEEKLY Ubidecarenone [Co Q-10] 100 mg PO HS Vit A/Vit C/Vit E/Zinc/Copper [Preservision Areds Softgel] 1 each PO DAILY Famotidine 20 mg [Pepcid 20 MG] 20 mg PO BID Metoprolol Tartrate 25 mg [Lopressor 25MG Tab] 12.5 mg PO BID Loperamide HCl 2 mg [Imodium 2 mg] 2 mg PO UD PRN PRN Reason: Diarrhea Simvastatin 20Mg [Zocor 20Mg] 20 mg PO QPM Acetaminophen [Tylenol Arthritis] 1,000 mg PO Q6HPRN PRN PRN Reason: Pain Naproxen Sodium [Wal-Proxen] 500 mg PO [id number] PRN PRN Reason: Pain Prednisone 5 mg [Deltasone 5 mg] 5 mg PO BID #10 tablet Cyclobenzaprine HCl 5 mg PO HS Instructions: Low Back Pain (DC) Additional Instructions: SENIOR LIVING ORDERS: ADMIT TO [facility] FACILITY REGULAR DIET PT/OT EVAL AND TREAT PATIENT TO WEAR BACK BRACE AT ALL TIMES, MAY REMOVE WHEN IN BED OR BATHING PATIENT HAS HOME OXYGEN AT 3L/NC BUT HAS BEEN OKAY ON ROOM AIR SEE ATTACHED MED LIST Follow up with: JENIFER RESENDIZ MD [Primary Care Provider] -
[2023-10-16 09:30] VITALS: BP 182/88; PULSE 88; RESP 20; TEMP 98; O2SAT 97
[2023-10-18] MEDS ORDERED: Fosamax 70 MG PO SCH (06:00)
== END 2023-10-16 10:30 | disposition home or self-care (01) ==
LOC: ED 12:28 → MED SURG 17:08
PROVIDERS: ADMIT Internal Medicine; ATTEND Internal Medicine
DX: M54.9 Dorsalgia, unspecified (principal); G89.29 Other chronic pain; S22.000A Wedge compression fracture of unspecified thoracic vertebra, initial encounter for closed fracture; E78.5 Hyperlipidemia, unspecified; I10 Essential (primary) hypertension; Z79.899 Other long term (current) drug therapy
CPT/HCPCS: 36000; 36415; 71045; 74176; 80048; 80053; 81001; 82947; 83036; 83735; 85025; 85027; 87086; 94760; 96372; 97110; 97161; 97530; 99285; P9612; Q3014; 93268; J1650; J2360; J2919; A9270-GY; G0378

== ENCOUNTER 2024-04-20 02:44 | Emergency (ER) | payer MEDICARE ==
[2024-04-20 03:17] VITALS: TEMP 98.2
--- NOTE | 2024-04-20 04:31 | XRAY ---
CLINICAL HISTORY: fall COMPARISON: none TECHNIQUE: Multiple axial images are obtained from the skull base to the vertex without contrast. CT scan was performed according to ALARA (as low as reasonable achievable). FINDINGS: Acute subdural hemorrhage in left fronto-temporal region, measuring upto 8 mm in thickness.No mass effect/midline shift. 11x9 mm calcified extra-axial lesion in left parietal para-sagittal region-s/o calcified meningioma. There is cerebral atrophy. No evidence of edema, mass effect, midline shift or hydrocephalus is noted. Basal cisterns are symmetric and normal in size and configuration. There are scattered periventricular hypodensities as can be seen with chronic microvascular ischemic changes. The carpenter-white matter differentiation is preserved. Visualized paranasal sinuses and mastoid air cells are well aerated. Orbital contents are within normal limits. Bony structures are intact. IMPRESSION: 1. Acute subdural hemorrhage in left fronto-temporal region, measuring upto 8 mm in thickness.No mass effect/midline shift. 2. Calcified meningioma in left parietal para-sagittal region. 3. Cerebral atrophy. 4. Chronic microvascular ischemic changes. Electronically Signed by: Damion Jones MD. (04/20/2024 04:26:24 EST)
--- NOTE | 2024-04-20 04:33 | XRAY ---
CLINICAL HISTORY: fall COMPARISON: none TECHNIQUE: Computed tomography of the cervical spine performed without intravenous contrast. Contiguous axial images were obtained from the skull base to T2, with sagittal and coronal reformatted images reconstructed from the axial data. CT scan was performed according to ALARA (as low as reasonable achievable). FINDINGS: Uncovertebral osteophytes at mutiple cervical levels. The normal cervical lordotic curvature is maintained. Cervical vertebral bodies are normal in height and alignment, with no evidence of fracture or subluxation. Lateral masses of C1 are symmetrical, and the dens is intact. Prevertebral soft tissues are not widened. The remaining suprahyoid and infrahyoid soft tissues in the neck are unremarkable. C2-C3: No disc bulge, mass effect on the cord or neuroforaminal narrowing. C3-C4: No disc bulge, mass effect on the cord or neuroforaminal narrowing. C4-C5: No disc bulge, mass effect on the cord or neuroforaminal narrowing. C5-C6: No disc bulge, mass effect on the cord or neuroforaminal narrowing. C6-C7: No disc bulge, mass effect on the cord or neuroforaminal narrowing. C7-T1: No disc bulge, mass effect on the cord or neuroforaminal narrowing. Thyroid gland appears unremarkable. IMPRESSION: 1.No acute fracture or subluxation in the cervical spine. 2.Cervical spondylotic changes. Electronically Signed by: Damion Jones MD. (04/20/2024 04:29:18 EST)
--- NOTE | 2024-04-20 05:02 | ERPHSYRPT ---
- History of Present Illness Time Seen by Provider: 04/20/24 03:10 Source: patient, EMS Exam Limitations: no limitations Patient Subjective Stated Complaint: c/o of fall Triage Nursing Assessment: patient brought to ED with c/o of fall. Patient was at home about to get in the shower and fell. patient hit head, denies LOC, not on any blood thinners. Patient rates pain of left side of head 5/10, left shoulder pain 5/10, and left hip pain 8/10. Patient has a 0.5cm x 0.5 cm skin tear on left knee, two 1cm x 1cm lacerations on the left eyebrow. pt is hypertensive, skin w/n/d, brought in by stretcher, speech clear and coherent, poor historian but answering some questions appropriately, AxOx3, pt doesn't appear to be in any distress at this time. Physician History: 88 years old female with history of hypertension, hyperlipidemia, GERD resident of assisted living is brought in the ER by EMS with complaint of fall. Patient tripped while getting out of shower and hit her head against the wall/floor and also left shoulder and hip pain. Patient denies any loss of consciousness. Denies any neck pain, chest pain palpitations or shortness of breath before or after the fall. Complaining of mild to moderate frontal headache and pain with movements of left shoulder and hip. No numbness tingling or focal weakness reported. Denies any visual disturbance or difficulty speech. Has a small laceration left eyebrow area. Allergies/Adverse Reactions: lidocaine [From Lidoderm] Adverse Reaction (Severe, Verified 04/20/24 03:07) Rash Home Medications: Alendronate Sodium 70 mg [Fosamax 70 MG] 70 mg PO WEEKLY 03/08/12 [History] Aspirin EC 81 mg [Ecotrin 81 mg] 81 mg PO DAILY 03/08/12 [History] Calcium Carbonate/Vitamin D3 [Calcium 600-Vit D3 400 Caplet] 1 tab PO DAILY 03/08/12 [History] Famotidine 20 mg [Pepcid 20 MG] 20 mg PO BID 10/04/23 [History] Loperamide HCl 2 mg [Imodium 2 mg] 2 mg PO UD PRN 10/04/23 [History] Metoprolol Tartrate 25 mg [Lopressor 25MG Tab] 12.5 mg PO BID 10/04/23 [History] Naproxen Sodium [Wal-Proxen] 500 mg PO [id number] PRN 10/04/23 [History] Simvastatin 20Mg [Zocor 20Mg] 20 mg PO QPM 10/04/23 [History] Ubidecarenone [Co Q-10] 100 mg PO HS 10/04/23 [History] Vit A/Vit C/Vit E/Zinc/Copper [Preservision Areds Softgel] 1 each PO DAILY 10/04/23 [History] Cyclobenzaprine HCl 5 mg PO HS 10/12/23 [History] Acetaminophen 500 mg [Tylenol Extra Strength 500 mg] 1,000 mg PO BID 04/20/24 [History] Tramadol HCl 50 mg [Ultram 50 mg] 50 mg PO Q8H PRN PRN 04/20/24 [History] Hx Tetanus, Diphtheria Vaccination/Date Given: Yes Hx Influenza Vaccination/Date Given: Yes Hx Pneumococcal Vaccination/Date Given: Yes Travel Risk - International Travel Have you traveled outside of the country in past 3 weeks: No - Emerging Infectious Disease Are you exhibiting symptoms associated with any current EIDs: No - Review of Systems Constitutional: No Symptoms Eyes: No Symptoms Ears, Nose, & Throat: No Symptoms Respiratory: No Symptoms Cardiac: No Symptoms Abdominal/Gastrointestinal: No Symptoms Musculoskeletal: Arthralgias, Fall, Joint Pain Neurological: Headache Endocrine: No Symptoms - Past Medical History Pertinent Past Medical History: Yes Neurological History: No Pertinent History, Dementia ENT History: No Pertinent History Cardiac History: High Cholesterol, Hypertension Respiratory History: No Pertinent History Endocrine Medical History: No Pertinent History Musculoskeletal History: Arthritis, Osteoporosis, Other GI Medical History: GERD History: No Pertinent History Psycho-Social History: No Pertinent History Female Reproductive Disorders: No Pertinent History Other Medical History: h/o compression fractures to spine, chronic mid to upper center back pain - Past Surgical History Past Surgical History: Yes Neuro Surgical History: No Pertinent History Cardiac: No Pertinent History Respiratory: No Pertinent History Gastrointestinal: Appendectomy, Cholecystectomy Genitourinary: Other Musculoskeletal: No Pertinent History Female Surgical History: Hysterectomy Other Surgical History: kidney stones - Social History Smoking Status: Never smoker Exposure to second hand smoke: No Drug Use: none Patient Lives Alone: No - Social Determinants of Health Will the patient participate in the screening: Declined to provide - Nursing Vital Signs Nursing Vital Signs: Initial Vital Signs Temperature 98.2 F 04/20/24 02:45 Pulse Rate 94 H 04/20/24 02:45 Respiratory Rate 17 04/20/24 02:45 Blood Pressure 175/91 04/20/24 02:45 O2 Sat by Pulse Oximetry 96 04/20/24 02:45 Pain Scale Pain Intensity 5 - [place] Coma Score Best Eye Response ([place]): (4) open spontaneously Best Verbal Response ([place]): (5) oriented Best Motor Response ([place]): (6) obeys commands [place] Total: 15 - Physical Exam General Appearance: no apparent distress, alert Head Injury: lacerations (2 lacerations 1 cm each in the left eyebrow area with minimal oozing.), swelling, tenderness Eye Exam: bilateral eye: normal inspection, PERRL, EOMI ENT Exam: airway nml, nml ext.inspection, No evidence of ENT injury, No dental injury Neck Exam: supple, trachea midline, full range of motion, normal alignment Cardiovascular/Respiratory Exam: chest non-tender, normal breath sounds, regular rate/rhythm Gastrointestinal/Abdominal Exam: soft, non tender, no distention Back Exam: normal inspection Extremity Exam: pelvis stable, joint swelling (Painful movements left shoulder and hip. 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 Exam: normal hearing, normal speech, PERRL Coordination/Gait Exam: normal finger to nose Motor/Sensory Exam: no motor deficit, no sensory deficit, no pronator drift Skin Exam: normal color SpO2 Interpretation: normal SpO2: 96 O2 Delivery: Room Air Procedures - Laceration/Wound Repair Left Frontal Time of Procedure: 04:36 Wound Location: Left, forehead Wound Length (cm): 2 Wound's Depth, Shape: superficial Wound Explored: clean Irrigated: Yes Hibiclens Prep: Yes Wound Repaired With: Steri-strips, Dermabond Ordered Tests: Active Orders 24 hr Category Date Time Status CERVICAL SPINE WO CONTRAST [CT] Stat Exams 04/20/24 03:12 Completed HEAD WITHOUT CONTRAST [CT] Stat Exams 04/20/24 03:21 Completed HIP UNI (2V) INCL PEL IF DONE Stat Exams 04/20/24 03:10 Taken SHOULDER Stat Exams 04/20/24 03:09 Taken - Progress Progress: improved, re-examined Progress Note: 04/20/24 05:12 88 years old is evaluated in the ER after she fell while getting out of the shower prior to arrival with no LOC. Has laceration left forehead/eyebrow area which are repaired with glue and Steri-Strips. Patient is placed in a c-collar initially, obtained CT head and cervical spine which showed subdural hemorrhage in the left frontoparietal area along with some other chronic intracranial findings. CT cervical spine is negative for acute fracture or subluxation. Patient does not want to continue with cervical spine and is removed at her request. She does understand the risk. X-ray left shoulder and hip are negative for acute fracture dislocation reviewed by me, official report is pending. She is given symptomatic treatment for pain. Patient is not on any blood thinners. Discussed with [facility] and patient is in auto accepted on behalf of Dr. Lao. Discussed with Dr.: Other Will see patient in: ED Counseled pt/family regarding: diagnosis, rad results Medical Desision Making - Independent Historian Additional History obtained from: Shot Coat Tender/EMT - Discussion of managment Care discussed with:: on-call "doc" Reviewed:: Test results Agreed on:: Treatment plan Will see patient: in ED - Diagnostic Testing Diagnostic test were ordered, analyzed, and reviewed by me: Yes Radiological Interpretation: Interpreted by me, Reviewed by me, Teleradiologist Report - Risk of complications The pt has a mod risk of morbidity or mortality based on: Need for prescription drug management The pt has a high risk of morbidity or mortality based on: Decision regarding hospitilization or escalation of hosp level of care - Departure Departure Disposition: Transfer Clinical Impression: Subdural hemorrhage, Shoulder contusion, Contusion, hip Condition: Stable Critical Care Time: No Referrals: JENIFER RESENDIZ MD [Primary Care Provider] - Follow up/PCP as directed
[2024-04-20] MEDS ORDERED: Zofran 4 MG/2 ML VIAL ONE (05:20)
[2024-04-20] MEDS ORDERED: SUBLIMAZE 100 MCG/2 ML ONE (05:21)
[2024-04-20] MEDS: SUBLIMAZE 100 MCG/2 ML IV ONE (05:23)
[2024-04-20] MEDS: Zofran 4 MG/2 ML VIAL IV ONE (05:23)
[2024-04-20 06:08] VITALS: BP 174/83; PULSE 91; RESP 19; O2SAT 98
[2024-04-20 08:36] LABS: Appearance Clear (Clear); Bacteria Many /HPF (None Seen); Bilirubin Negative (Negative); Blood Negative (Negative); Epithelial Cells None Seen /HPF (None Seen); Glucose, Urine Negative (Negative); Hyaline Casts NONE SEEN /LPF (0-2); Ketones Negative (Negative); Leukocyte Esterase Negative (Negative); Nitrite Negative (Negative); Ph 6.5 (4.6-8.0); Protein,Urine Dip Negative (Negative); RBC 21-50 /HPF (0-5); Urobilinogen 0.2 mg/dL (0.2); WBC 0-2 /HPF (0-5)
--- NOTE | 2024-04-20 08:39 | XRAY ---
Indication: Pain following fall. Comparison: None 3 view left shoulder demonstrates osteopenia, moderate glenohumeral/mild AC degenerative arthropathy, mild/moderate multilevel cervicothoracic degenerative spondylosis, T8/T9/T11/T12 remote compression fractures, and T8/T9 vertebroplasty. High riding humeral head commonly seen with rotator cuff tear. No other bony, articular, or soft tissue abnormalities.
--- NOTE | 2024-04-20 08:41 | XRAY ---
Indication: Pain following fall. Comparison: Right hip exam May 31, 2015 AP pelvis and 2 view left hip now demonstrates old proximal right femur fracture with partially visualized orthopedic hardware and chunky heterotopic ossifications. Elsewhere osteopenia, moderate lower lumbar degenerative spondylosis, pelvic surgical clip, and mild scattered vascular calcifications. No other bony, articular, or soft tissue abnormalities.
== END 2024-04-20 06:55 | disposition short-term general hospital (02) ==
LOC: ED 02:44
DX: S06.5X0A Traumatic subdural hemorrhage without loss of consciousness, initial encounter (principal); S01.81XA Laceration without foreign body of other part of head, initial encounter; S40.012A Contusion of left shoulder, initial encounter; S70.02XA Contusion of left hip, initial encounter; W01.198A Fall on same level from slipping, tripping and stumbling with subsequent striking against other object, initial encounter; Y93.E1 Activity, personal bathing and showering; Y92.002 Bathroom of unspecified non-institutional (private) residence as the place of occurrence of the external cause; R51.9 Headache, unspecified; E78.5 Hyperlipidemia, unspecified; I10 Essential (primary) hypertension; Z79.891 Long term (current) use of opiate analgesic; Z79.899 Other long term (current) drug therapy
CPT/HCPCS: 12001; 51702; 70450; 72125; 73030; 73502; 81001; 87086; 96374; 96375; 99285; J2405; J3010

== ENCOUNTER 2024-06-21 17:47 | Emergency (ER) | payer MEDICARE ==
[2024-06-21 18:05] VITALS: PULSE 90; TEMP 97
--- NOTE | 2024-06-21 18:21 | ERPHSYRPT ---
- History of Present Illness Source: patient, family, EMS Patient Subjective Stated Complaint: frequent urination with abd and back pain Triage Nursing Assessment: Pt brought to the ER by EMS, hypertensive, denies pain, urine cloudy, right foot edema, pulses normal, no difficulty breathing, confused, oriented to place only, doesn't appear to be in any distress Timing/Duration: today Severity: mild Associated Symptoms: denies symptoms Hx Tetanus, Diphtheria Vaccination/Date Given: Yes Hx Influenza Vaccination/Date Given: Yes Hx Pneumococcal Vaccination/Date Given: Yes <NEHA ZARAGOZA - Last Filed: 06/21/24 18:47> <LORIE ACOSTA - Last Filed: 06/21/24 19:23> - History of Present Illness Time Seen by Provider: 06/21/24 18:17 Physician History: Patient is a 88-year-old female living at assisted living place with significant past medical history of hypertension severe osteoporosis and osteoarthritis scoliosis and history of recent head trauma for which patient was treated at recently sent back to assisted living facility started having confusion and weakness abdominal pain back pain and right side groin pain show daughter called ambulance and patient was brought into the emergency room. Patient is alert awake oriented to time place and person in the emergency room communicate well denies any symptoms at present. (NEHA ZARAGOZA) Allergies/Adverse Reactions: lidocaine [From Lidoderm] Adverse Reaction (Severe, Verified 06/21/24 18:13) Rash Home Medications: Alendronate Sodium 70 mg [Fosamax 70 MG] 70 mg PO WEEKLY 03/08/12 [History] Calcium Carbonate/Vitamin D3 [Calcium 600-Vit D3 400 Caplet] 1 tab PO DAILY 03/08/12 [History] Famotidine 20 mg [Pepcid 20 MG] 20 mg PO BID 10/04/23 [History] Loperamide HCl 2 mg [Imodium 2 mg] 2 mg PO UD PRN 10/04/23 [History] Metoprolol Tartrate 25 mg [Lopressor 25MG Tab] 25 mg PO BID 10/04/23 [His tory] Simvastatin 20Mg [Zocor 20Mg] 20 mg PO QPM 10/04/23 [History] Ubidecarenone [Co Q-10] 100 mg PO HS 10/04/23 [History] Acetaminophen 325 mg [Tylenol 325 mg] 650 mg PO Q4H PRN 06/21/24 [History] Melatonin 6 mg PO HS PRN 06/21/24 [History] Sennosides/Docusate Sodium [Senna Plus 8.6-50 mg Softgel] 1 each PO BID 06/21/24 [History] Travel Risk - International Travel Have you traveled outside of the country in past 3 weeks: No - Emerging Infectious Disease Are you exhibiting symptoms associated with any current EIDs: Yes Symptoms: Abdominal Pain <NIK - Last Filed: 06/21/24 18:47> - Review of Systems Constitutional: Fatigue, Lethargy, Malaise, Weakness, No Fever, No Chills Eyes: No Symptoms Ears, Nose, & Throat: No Symptoms Respiratory: No Cough, No Dyspnea Cardiac: No Chest Pain, No Edema, No Syncope Abdominal/Gastrointestinal: No Abdominal Pain, No Nausea, No Vomiting, No Diarrhea Genitourinary Symptoms: No Dysuria Musculoskeletal: Back Pain, Joint Pain (right groin area), No Neck Pain, No Fall Skin: Rash (right groin area and right lateral thigh) Neurological: No Dizziness, No Focal Weakness, No Sensory Changes Psychological: No Symptoms Endocrine: No Symptoms All Other Systems: Reviewed and Negative <NIK - Last Filed: 06/21/24 18:47> - Past Medical History Pertinent Past Medical History: Yes Neurological History: No Pertinent History, Dementia ENT History: No Pertinent History Cardiac History: High Cholesterol, Hypertension Respiratory History: No Pertinent History Endocrine Medical History: No Pertinent History Musculoskeletal History: Arthritis, Osteoporosis, Other GI Medical History: GERD History: No Pertinent History Psycho-Social History: No Pertinent History Female Reproductive Disorders: No Pertinent History Other Medical History: h/o compression fractures to spine, chronic mid to upper center back pain - Past Surgical History Past Surgical History: Yes Neuro Surgical History: No Pertinent History Cardiac: No Pertinent History Respiratory: No Pertinent History Gastrointestinal: Appendectomy, Cholecystectomy Genitourinary: Other Musculoskeletal: No Pertinent History Female Surgical History: Hysterectomy Other Surgical History: kidney stones - Social History Smoking Status: Never smoker Exposure to second hand smoke: No Drug Use: none Patient Lives Alone: No - Social Determinants of Health Will the patient participate in the screening: Yes Do you worry about a steady place to live?: No Do you have any problems with any of the following?: No known problems In the past 12 months,have you had to go without utilities?: No Transportation Issues: No Has anyone in your support network made you feel unsafe?: No Have you or anyone in your house had to go without enough: No <REA ZARAGOZASH - Last Filed: 06/21/24 18:47> - Physical Exam General Appearance: no apparent distress, alert Eye Exam: PERRL/EOMI, eyes nml inspection Ears, Nose, Throat Exam: normal ENT inspection, TMs normal, pharynx normal, moist mucous membranes Neck Exam: normal inspection, non-tender, supple, full range of motion Respiratory Exam: normal breath sounds, lungs clear, No respiratory distress Cardiovascular Exam: regular rate/rhythm, normal heart sounds, normal peripheral pulses Gastrointestinal/Abdomen Exam: soft, normal bowel sounds, No tenderness, No mass Back Exam: normal inspection, normal range of motion, rash (lower lumber area), No CVA tenderness, No vertebral tenderness Extremity Exam: normal inspection, normal range of motion, pelvis stable Neurologic Exam: alert, oriented x 3, cooperative, normal mood/affect, nml cerebellar function, nml station & gait, sensation nml, No motor deficits Skin Exam: normal color, warm, dry, rash (right groin, right lateral thigh) Lymphatic Exam: No adenopathy SpO2 Interpretation: normal SpO2: 99 O2 Delivery: Room Air <NIK - Last Filed: 06/21/24 18:47> - Nursing Vital Signs Nursing Vital Signs: Initial Vital Signs O2 Sat by Pulse Oximetry 97 06/21/24 17:49 Pain Scale Pain Intensity 0 - Course Nursing assessment & vital signs reviewed: Yes EKG Interpreted by Me: Sinus Rhythm, Non-specific ST Changes - Radiology Exams Chest X-ray Interpretation: Interpreted by me, Reviewed by me <HERNÁN ZARAGOZAYESH - Last Filed: 06/21/24 18:47> Ordered Tests: Active Orders 24 hr Category Date Time Status EKG-ER Only STAT Care 06/21/24 18:07 Active CHEST 1 VIEW (PORTABLE) Stat Exams 06/21/24 18:08 Completed AMYLASE Stat Lab 06/21/24 18:20 Completed CBC W DIFF Stat Lab 06/21/24 18:20 Completed CMP Stat Lab 06/21/24 18:20 Completed CULTURE,URINE Stat Lab 06/21/24 18:23 Received LIPASE Stat Lab 06/21/24 18:20 Completed TROPONIN Stat Lab 06/21/24 18:20 Completed UA W/RFX UR CULTURE Stat Lab 06/21/24 18:23 Completed Lab/Rad Data: Laboratory Result Diagrams 06/21/24 18:20 06/21/24 18:20 Laboratory Results 06/21/24 06/21/24 06/21/24 Range/Units 18:23 18:20 18:20 WBC 9.0 (3.98-10.04) x10^3/uL RBC 4.33 (3.93-5.22) x10^6/uL Hgb 14.0 (11.2-15.7) g/dL Hct 41.0 (34.1-44.9) % MCV 94.7 (79.4-94.8) fL MCH 32.3 H (25.6-32.2) pg MCHC 34.1 (32.2-35.5) g/dL RDW 12.3 (11.7-14.4) % Plt Count 214 (182-369) x10^3/uL MPV 9.1 L (9.4-12.3) fL Gran % 75.2 H (34.0-71.1) % Immature Gran % (Auto) 1.0 H (0.001-0.429) % Nucleat RBC Rel Count 0.0 (0.00-0.2) % Eos # (Auto) 0.02 L (0.04-0.36) x10^3/uL Immature Gran # (Auto) 0.09 H (0.001-0.031) x10^3u/L Absolute Lymphs (auto) 1.43 (1.18-3.74) x10^3/uL Absolute Monos (auto) 0.67 (0.24-0.86) x10^3/uL Absolute Nucleated RBC 0.00 (0.00-0.012) x10^3u/L Lymphocytes % 15.9 L (19.3-51.7) % Monocytes % 7.5 (4.7-12.5) % Eosinophils % 0.2 L (0.7-5.8) % Basophils % 0.2 (0.1-1.2) % Absolute Granulocytes 6.76 H (1.56-6.13) x10^3/uL Basophils # 0.02 (0.01-0.08) x10^3/uL Sodium 136 (135-145) mmol/L Potassium 3.8 (3.5-5.1) mmol/L Chloride 102 (98-107) mmol/L Carbon Dioxide 27 (22-30) mmol/L Anion Gap 10.4 (5-15) MEQ/L BUN 19 H (7-17) mg/dL Creatinine 0.76 (0.52-1.04) mg/dL Estimated GFR 75.3 ML/MIN Glucose 122 H (74-106) mg/dL Calcium 9.1 (8.4-10.2) mg/dL Total Bilirubin 0.70 (0.2-1.3) mg/dL AST 26 (14-36) U/L ALT 20 (0-35) U/L Alkaline Phosphatase 61 (38-126) U/L Troponin I 0.019 (0.000-0.033) ng/mL Serum Total Protein 6.4 (6.3-8.2) g/dL Albumin 3.9 (3.5-5.0) g/dL Amylase 86 (30-110) U/L Lipase 248 (23-300) U/L Urine Color Yellow (Yellow) Urine Appearance Cloudy A (Clear) Urine pH 6.0 (4.6-8.0) Ur Specific [place] 1.020 (1.005-1.030) Urine Protein Trace A (Negative) Urine Glucose (UA) Negative (Negative) mg/dL Urine Ketones Trace A (Negative) Urine Blood Negative (Negative) Urine Nitrite Negative (Negative) Urine Bilirubin Negative (Negative) Urine Urobilinogen 1.0 A (0.2) mg/dL Ur Leukocyte Esterase Small A (Negative) U Hyaline Cast (Auto) 3-5 A (0-2) /LPF Urine Microscopic RBC 0-2 (0-5) /HPF Urine Microscopic WBC 0-2 (0-5) /HPF Ur Epithelial Cells None Seen (None Seen) /HPF Urine Bacteria Many A (None Seen) /HPF Urine Culture Reflexed ORDERED SEPARATELY (NO) <ACOSTA,LORIE S. - Last Filed: 06/21/24 19:23> - Progress Progress Note: Patient was turned over to me at shift change. I went in and talked with the patient and her daughter. She is having some right hip pain. On examination it looks like she has shingles that was a new diagnosis. She has a rash there and it is tender and consistent with shingles. Otherwise she is stable enough to go home. Her labs were evaluated. Her CBC showed no abnormalities noted her chemistry. They are a little worried about a UTI and that was negative. She has not had any other complaints. Her x-ray was done and there was no fracture seen. At this time the patient stable for discharge home. 06/21/24 19:20 (LORIE ACOSTA) Medical Desision Making - Independent Historian Additional History obtained from: Child - Risk of complications Minimal Risk: Minimal risk of morbidity <LORIE ACOSTA - Last Filed: 06/21/24 19:23> <NEHA ZARAGOZA - Last Filed: 06/21/24 18:47> - Departure Departure Disposition: Home Critical Care Time: No <LORIE ACOSTA - Last Filed: 06/21/24 19:23> - Departure Clinical Impression: Thigh shingles Condition: Stable Referrals: JENIFER RESENDIZ MD [Primary Care Provider] - Follow up/PCP as directed Instructions: Shingles
[2024-06-21 18:26] LABS: Absolute Neutrophil Ct (ANC) 6.76 x10^3/uL (1.56-6.13); BASOPHIL % 0.2 % (0.1-1.2); Basophil (Absolute #) 0.02 x10^3/uL (0.01-0.08); Eosinophil % 0.2 % (0.7-5.8); Eosinophil (Absolute #) 0.02 x10^3/uL (0.04-0.36); IMMATURE GRAN # 0.09 x10^3u/L (0.001-0.031); Lymphocyte (Absolute #) 1.43 x10^3/uL (1.18-3.74); Lymphocytes % 15.9 % (19.3-51.7); Mean Cell Volume 94.7 fL (79.4-94.8); Mean Corpuscular Hemoglobin 32.3 pg (25.6-32.2); Mean Corpuscular Hgb Concent. 34.1 g/dL (32.2-35.5); Mean Platelet Volume 9.1 fL (9.4-12.3); Monocyte (Absolute #) 0.67 x10^3/uL (0.24-0.86); Monocytes % 7.5 % (4.7-12.5); Neutrophil % 75.2 % (34.0-71.1); Platelet Count 214 x10^3/uL (182-369); Red Blood Count 4.33 x10^6/uL (3.93-5.22); Red Cell Distribution Width 12.3 % (11.7-14.4)
--- NOTE | 2024-06-21 18:40 | XRAY ---
Indication: Weakness. Comparison: October 12, 2023 Portable chest inflated and remains clear. Heart not enlarged for AP portable technique. Bony thorax again demonstrates osteopenia, moderate degenerative changes, remote multilevel mid to lower thoracic compression fractures, and T8-T9 vertebroplasty. New nondisplaced healing lateral left 8 rib and right acromion clavicular fractures. Impression: Nonacute chest with chronic features.
[2024-06-21 18:46] LABS: Appearance Cloudy (Clear); Bacteria Many /HPF (None Seen); Bilirubin Negative (Negative); Blood Negative (Negative); Epithelial Cells None Seen /HPF (None Seen); Glucose, Urine Negative (Negative); Ketones Trace (Negative); Leukocyte Esterase Small (Negative); Nitrite Negative (Negative); Protein,Urine Dip Trace (Negative); RBC 0-2 /HPF (0-5); WBC 0-2 /HPF (0-5)
[2024-06-21 18:54] LABS: ALBUMIN 3.9 g/dL (3.5-5.0); ANION GAP 10.4 MEQ/L (5-15); BILIRUBIN,TOTAL 0.7 mg/dL (0.2-1.3); Calcium 9.1 mg/dL (8.4-10.2); Creatinine 1 0.76 mg/dL (0.52-1.04); EST GLOMERULAR FILTRATION RATE 75.3 ML/MIN; Potassium 3.8 mmol/L (3.5-5.1); TROPONIN 0.019 ng/mL (0.000-0.033); Total Protein 6.4 g/dL (6.3-8.2)
[2024-06-21 19:27] VITALS: BP 182/100; RESP 16; O2SAT 95
== END 2024-06-21 19:40 | disposition home or self-care (01) ==
LOC: ED 17:47
DX: B02.9 Zoster without complications (principal); R41.0 Disorientation, unspecified; R53.1 Weakness; R10.9 Unspecified abdominal pain; M54.9 Dorsalgia, unspecified; R10.2 Pelvic and perineal pain; I10 Essential (primary) hypertension; E78.5 Hyperlipidemia, unspecified; Z79.899 Other long term (current) drug therapy
CPT/HCPCS: 36415; 71045; 80053; 81001; 82150; 83690; 84484; 85025; 87086; 93005; 99283; 99285

== ENCOUNTER 2024-09-09 06:20 | Emergency (ER) | payer MEDICARE ==
[2024-09-09 06:39] VITALS: TEMP 97.3
--- NOTE | 2024-09-09 07:13 | ERPHSYRPT ---
- History of Present Illness Source: patient, EMS, detention records Exam Limitations: other (Patient has dementia she was not a really good historian.) Patient Subjective Stated Complaint: fall in kitchen, back pain, several skin tears, hematoma to right sikhism area. Triage Nursing Assessment: EMS brought patient here from a fall at home in the kitchen area. Patient denied any LOC. Complaining of back pain on top. EMS placed patient in C-Collar. Skin tear to right forearm and right eye brow. Hematoma to right sikhism area. Bruising noted to right forearm and right sikhism area. Patient alert to name and , but unable to know location or month. Physician History: Patient had a fall. She does not remember the fall. I think she has dementia though. She cannot even really tell me exactly where she is hurting. She did say that her back hurt but could not tell me where.There was not a lot of obvious trauma except for some abrasions on her left arm and an abrasion on her forehead.She did not ambulate after the fall. It is uncertain if she had a syncopal episode or not.The mechanism and details of the fall are unknown. It was not witnessed and sheIs not a good historian. Allergies/Adverse Reactions: lidocaine [From Lidoderm] Adverse Reaction (Severe, Verified 09/09/24 07:03) Rash Home Medications: Alendronate Sodium 70 mg [Fosamax 70 MG] 70 mg PO WEEKLY 03/08/12 [History] Calcium Carbonate/Vitamin D3 [Calcium 600-Vit D3 400 Caplet] 1 tab PO DAILY 03/08/12 [History] Famotidine 20 mg [Pepcid 20 MG] 20 mg PO BID 10/04/23 [History] Loperamide HCl 2 mg [Imodium 2 mg] 2 mg PO UD PRN 10/04/23 [History] Metoprolol Tartrate 25 mg [Lopressor 25MG Tab] 25 mg PO BID 10/04/23 [History] Simvastatin 20Mg [Zocor 20Mg] 20 mg PO QPM 10/04/23 [History] Ubidecarenone [Co Q-10] 100 mg PO HS 10/04/23 [History] Acetaminophen 325 mg [Tylenol 325 mg] 650 mg PO Q4H PRN 06/21/24 [History] Melatonin 5 mg PO HS 06/21/24 [History] Sennosides/Docusate Sodium [Senna Plus 8.6-50 mg Softgel] 1 each PO Q12H PRN 06/21/24 [History] Buspirone HCl 5 mg [Buspar 5 mg] 10 mg PO BID 09/09/24 [History] Fluoxetine HCl [Prozac] 10 mg PO DAILY 09/09/24 [History] Hx Tetanus, Diphtheria Vaccination/Date Given: Yes Hx Influenza Vaccination/Date Given: Yes Hx Pneumococcal Vaccination/Date Given: Yes Immunizations Up to Date: Yes Travel Risk - International Travel Have you traveled outside of the country in past 3 weeks: No - Emerging Infectious Disease Are you exhibiting symptoms associated with any current EIDs: No Symptoms: Abdominal Pain - Review of Systems Constitutional: No Symptoms Eyes: No Symptoms Respiratory: No Symptoms Cardiac: No Symptoms Abdominal/Gastrointestinal: No Symptoms All Other Systems: Reviewed and Negative - Past Medical History Pertinent Past Medical History: Yes Neurological History: No Pertinent History, Dementia ENT History: No Pertinent History Cardiac History: High Cholesterol, Hypertension Respiratory History: No Pertinent History Endocrine Medical History: No Pertinent History Musculoskeletal History: Arthritis, Osteoporosis, Other GI Medical History: GERD History: No Pertinent History Psycho-Social History: No Pertinent History Female Reproductive Disorders: No Pertinent History Other Medical History: h/o compression fractures to spine, chronic mid to upper center back pain - Past Surgical History Past Surgical History: Yes Neuro Surgical History: No Pertinent History Cardiac: No Pertinent History Respiratory: No Pertinent History Gastrointestinal: Appendectomy, Cholecystectomy Genitourinary: Other Musculoskeletal: No Pertinent History Female Surgical History: Hysterectomy Other Surgical History: kidney stones - Social History Smoking Status: Never smoker Exposure to second hand smoke: No Drug Use: none - Social Determinants of Health Will the patient participate in the screening: Unable to obtain - Nursing Vital Signs Nursing Vital Signs: Initial Vital Signs Temperature 97.3 F 09/09/24 06:21 Pulse Rate 68 09/09/24 06:21 Respiratory Rate 20 09/09/24 06:21 Blood Pressure 173/81 09/09/24 06:21 O2 Sat by Pulse Oximetry 98 09/09/24 06:21 Pain Scale Pain Intensity 0 - [place] Coma Score Best Eye Response ([place]): (4) open spontaneously Best Verbal Response ([place]): (4) confused conversation Best Motor Response ([place]): (6) obeys commands [place] Total: 14 - Physical Exam General Appearance: no apparent distress Head Injury: tenderness (Patient has a abrasion on her right forehead.) Eye Exam: PERRL/EOMI, eyes nml inspection ENT Exam: airway nml, evidence of ENT injury, nml ext.inspection, No dental injury Neck Exam: supple, pain on movement of neck, other (Tenderness with palpation in the lower C-spine), No trachea midline, No focal neuro deficit Respiratory/Chest Exam: normal breath sounds, No chest tenderness Cardiovascular Exam: normal heart sounds, regular rate/rhythm Gastrointestinal Exam: soft, normal bowel sounds, No tenderness, No distention Back Exam: vertebral tenderness (Diffuse vertebral tenderness.), other Extremity Exam: normal inspection, normal range of motion, capillary refill <3 sec, pelvis stable Neurologic Exam: alert, cooperative Skin Exam: normal color, warm, dry SpO2: 94 - Course Nursing assessment & vital signs reviewed: Yes Ordered Tests: Active Orders 24 hr Category Date Time Status EKG-ER Only STAT Care 09/09/24 07:07 Active CERVICAL SPINE WO CONTRAST [CT] Stat Exams 09/09/24 07:08 Completed CHEST 1 VIEW (PORTABLE) Stat Exams 09/09/24 07:08 Completed HEAD WITHOUT CONTRAST [CT] Stat Exams 09/09/24 07:08 Completed LUMBAR SPINE W/O [CT] Stat Exams 09/09/24 07:08 Completed THORACIC SPINE W/O CONTRAST [CT] Stat Exams 09/09/24 07:08 Completed CBC W DIFF Stat Lab 09/09/24 07:22 Completed CMP Stat Lab 09/09/24 07:22 Completed CULTURE,URINE Stat Lab 09/09/24 08:44 Received UA W/RFX UR CULTURE Stat Lab 09/09/24 08:44 Completed Lab/Rad Data: Laboratory Result Diagrams 09/09/24 07:22 09/09/24 07:22 Laboratory Results 09/09/24 09/09/24 09/09/24 Range/Units 08:44 07:22 07:22 WBC 10.5 H (3.98-10.04) x10^3/uL RBC 4.41 (3.93-5.22) x10^6/uL Hgb 13.7 (11.2-15.7) g/dL Hct 40.8 (34.1-44.9) % MCV 92.5 (79.4-94.8) fL MCH 31.1 (25.6-32.2) pg MCHC 33.6 (32.2-35.5) g/dL RDW 13.2 (11.7-14.4) % Plt Count 247 (182-369) x10^3/uL MPV 9.4 (9.4-12.3) fL Gran % 75.5 H (34.0-71.1) % Immature Gran % (Auto) 1.5 H (0.001-0.429) % Nucleat RBC Rel Count 0.0 (0.00-0.2) % Eos # (Auto) 0.03 L (0.04-0.36) x10^3/uL Immature Gran # (Auto) 0.16 H (0.001-0.031) x10^3u/L Absolute Lymphs (auto) 1.73 (1.18-3.74) x10^3/uL Absolute Monos (auto) 0.61 (0.24-0.86) x10^3/uL Absolute Nucleated RBC 0.00 (0.00-0.012) x10^3u/L Lymphocytes % 16.6 L (19.3-51.7) % Monocytes % 5.8 (4.7-12.5) % Eosinophils % 0.3 L (0.7-5.8) % Basophils % 0.3 (0.1-1.2) % Absolute Granulocytes 7.89 H (1.56-6.13) x10^3/uL Basophils # 0.03 (0.01-0.08) x10^3/uL Sodium 140 (135-145) mmol/L Potassium 3.3 L (3.5-5.1) mmol/L Chloride 103 (98-107) mmol/L Carbon Dioxide 27 (22-30) mmol/L Anion Gap 13.7 (5-15) MEQ/L BUN 12 (7-17) mg/dL Creatinine 0.63 (0.52-1.04) mg/dL Estimated GFR 85.3 ML/MIN Glucose 104 (74-106) mg/dL Calcium 8.8 (8.4-10.2) mg/dL Total Bilirubin 1.30 (0.2-1.3) mg/dL AST 25 (14-36) U/L ALT 19 (0-35) U/L Alkaline Phosphatase 60 (38-126) U/L Serum Total Protein 6.5 (6.3-8.2) g/dL Albumin 3.9 (3.5-5.0) g/dL Urine Color Yellow (Yellow) Urine Appearance Clear (Clear) Urine pH 8.0 (4.6-8.0) Ur Specific [place] <=1.005 (1.005-1.030) Urine Protein Negative (Negative) Urine Glucose (UA) Negative (Negative) mg/dL Urine Ketones Negative (Negative) Urine Blood Negative (Negative) Urine Nitrite Negative (Negative) Urine Bilirubin Negative (Negative) Urine Urobilinogen 0.2 (0.2) mg/dL Ur Leukocyte Esterase Negative (Negative) U Hyaline Cast (Auto) NONE SEEN (0-2) /LPF Urine Microscopic RBC 6-10 A (0-5) /HPF Urine Microscopic WBC 0-2 (0-5) /HPF Ur Epithelial Cells None Seen (None Seen) /HPF Urine Bacteria Many A (None Seen) /HPF Urine Culture Reflexed YES (NO) - Progress Progress: improved Progress Note: Patient was observed for about 3 to 4 hours. Her mental status improved significantly. She had no Focal neurological deficits.I got CT scan of her head C-spine T-spine and L-spine. They were all normal. A chest x-ray was done which showed no acute findings either. I do not think that she has any broken bones.We ambulated her and she did not have any pain. And there was no tenderness or pain on the hips when they were examined.I do not believe she has a pelvic or hip fracture. We stood her up and ambulated her. She was able to ambulate on her own. She was able to follow directions. She was a little bit confused at times but I think that she is stable to go home. I discussed this with her daughter and we will discharge her back to the assisted living. They do have with some paid help that they can call to come in if she needs more assistance than is available at the assisted living. 09/09/24 11:09/09/24 11:09 Medical Desision Making - Independent Historian Additional History obtained from: Child - Diagnostic Testing Diagnostic test were ordered, analyzed, and reviewed by me: Yes Radiological Interpretation: Reviewed by me - Risk of complications Minimal Risk: Minimal risk of morbidity - Departure Departure Disposition: Home Clinical Impression: Multiple traumatic injuries Condition: Stable Critical Care Time: No Referrals: JENIFER RESENDIZ MD [Primary Care Provider] - Follow up/PCP as directed Instructions: Preventing falls - ED discharge instructions
[2024-09-09 07:25] LABS: Absolute Neutrophil Ct (ANC) 7.89 x10^3/uL (1.56-6.13); BASOPHIL % 0.3 % (0.1-1.2); Basophil (Absolute #) 0.03 x10^3/uL (0.01-0.08); Eosinophil % 0.3 % (0.7-5.8); Eosinophil (Absolute #) 0.03 x10^3/uL (0.04-0.36); Hematocrit 40.8 % (34.1-44.9); Hemoglobin 13.7 g/dL (11.2-15.7); IMMATURE GRAN # 0.16 x10^3u/L (0.001-0.031); IMMATURE GRAN % 1.5 % (0.001-0.429); Lymphocyte (Absolute #) 1.73 x10^3/uL (1.18-3.74); Lymphocytes % 16.6 % (19.3-51.7); Mean Cell Volume 92.5 fL (79.4-94.8); Mean Corpuscular Hemoglobin 31.1 pg (25.6-32.2); Mean Corpuscular Hgb Concent. 33.6 g/dL (32.2-35.5); Mean Platelet Volume 9.4 fL (9.4-12.3); Monocyte (Absolute #) 0.61 x10^3/uL (0.24-0.86); Monocytes % 5.8 % (4.7-12.5); Neutrophil % 75.5 % (34.0-71.1); Platelet Count 247 x10^3/uL (182-369); Red Blood Count 4.41 x10^6/uL (3.93-5.22); Red Cell Distribution Width 13.2 % (11.7-14.4); White Blood Count 10.5 x10^3/uL (3.98-10.04)
[2024-09-09 07:39] LABS: ALBUMIN 3.9 g/dL (3.5-5.0); ANION GAP 13.7 MEQ/L (5-15); BILIRUBIN,TOTAL 1.3 mg/dL (0.2-1.3); Calcium 8.8 mg/dL (8.4-10.2); Creatinine 1 0.63 mg/dL (0.52-1.04); EST GLOMERULAR FILTRATION RATE 85.3 ML/MIN; Potassium 3.3 mmol/L (3.5-5.1); Total Protein 6.5 g/dL (6.3-8.2)
--- NOTE | 2024-09-09 08:44 | XRAY ---
Indication: Status post fall. Multiple contiguous axial images obtained through the head without contrast. Comparison: April 20, 2024 Again age-appropriate global atrophy with moderate periventricular degenerative micro-ischemia bilaterally. No acute intracranial hemorrhage, abnormal extra-axial fluid collection, or mass effect. Fourth ventricle is midline without hydrocephalus. Stable 1.4 cm left parasagittal well-circumscribed calcification posteriorly, possible calcified meningioma. Bony calvarium intact. Visualized paranasal sinuses and mastoid air cells are clear. Impression: Stable nonacute senile brain with again incidental left parasagittal calcified meningioma.
--- NOTE | 2024-09-09 08:48 | XRAY ---
Indication: Status post fall. Multiple contiguous axial images obtained through the cervical spine. Sagittal and coronal reformatted images obtained. Comparison: April 20, 2024 Stable osteopenia, mild multilevel bilateral degenerative facet arthropathy, and accentuated cervical lordosis. No new/acute bony, articular, or soft tissue abnormalities. Impression: Stable osteopenia and multilevel degenerative facet arthropathy. No new/acute abnormalities.
--- NOTE | 2024-09-09 09:02 | XRAY ---
Indication: Status post fall. Multiple contiguous axial images obtained through thoracic spine. Sagittal and coronal reformatted images obtained. Comparison: October 04, 2023 New remote-appearing T11 compression fracture with 50-75% vertebral body height loss. Stable remote T12 compression fracture. Both compression fractures now encroaches on spinal canal producing spinal canal narrowing with mean AP thecal sac diameter 7 mm and also produces new severe right foraminal stenosis. Stable osteopenia, remote compression fractures T2/T6, and T8/T9 vertebroplasty. No acute compression fracture or subluxation. Visualized noncontrasted soft tissues again demonstrates cardiomegaly, scattered bilateral pulmonary fibrosis/scarring, and moderate scattered arteriosclerotic disease. CT lumbar spine reported separately. Impression: 1. Negative for acute fracture/subluxation. 2. Again osteopenia, T8/T9 vertebroplasty, and multilevel remote compression fractures. New remote T11 compression fracture with subsequent spinal canal narrowing and right foraminal stenosis. 3. Again incidental cardiomegaly, pulmonary fibrosis/scarring, and arteriosclerotic disease.
--- NOTE | 2024-09-09 09:12 | XRAY ---
Indication: Status post fall. Multiple contiguous axial images obtained through the lumbar spine PA sagittal and coronal reformatted images obtained. Comparison: October 04, 2023 CT thoracic spine reported separately. Stable osteopenia, minimal/mild multilevel lumbar degenerative spondylosis, bilateral L5 spondylolysis with grade 1 listhesis, and L1-L5 endplate concave deformities. No acute fracture or new subluxation. Visualized noncontrasted soft tissues again demonstrates scattered sigmoid diverticulosis and moderate scattered arteriosclerotic calcifications. Impression: Continued nonacute CT lumbar spine with chronic features.
--- NOTE | 2024-09-09 09:28 | XRAY ---
Indication: Status post fall. Comparison: June 21, 2024 Portable chest less inflated with new minimal bibasilar infiltrates/atelectasis. Heart remains borderline enlarged. Bony thorax intact again with osteopenia, degenerative changes, multilevel thoracic compression fractures, and T8/T9 vertebroplasty.
[2024-09-09 09:29] LABS: Appearance Clear (Clear); Bacteria Many /HPF (None Seen); Bilirubin Negative (Negative); Blood Negative (Negative); Epithelial Cells None Seen /HPF (None Seen); Glucose, Urine Negative (Negative); Hyaline Casts NONE SEEN /LPF (0-2); Ketones Negative (Negative); Leukocyte Esterase Negative (Negative); Nitrite Negative (Negative); Protein,Urine Dip Negative (Negative); Specific Gravity <=1.005 (1.005-1.030); Urobilinogen 0.2 mg/dL (0.2); WBC 0-2 /HPF (0-5)
[2024-09-09 10:29] VITALS: PULSE 76; RESP 17
[2024-09-09 11:09] VITALS: O2SAT 94
[2024-09-09 11:50] VITALS: BP 166/86
== END 2024-09-09 11:49 | disposition home or self-care (01) ==
LOC: ED 06:20
DX: Z04.3 Encounter for examination and observation following other accident (principal); S00.81XA Abrasion of other part of head, initial encounter; S40.812A Abrasion of left upper arm, initial encounter; W19.XXXA Unspecified fall, initial encounter; Y92.000 Kitchen of unspecified non-institutional (private) residence as the place of occurrence of the external cause; M54.2 Cervicalgia; M54.9 Dorsalgia, unspecified; E78.5 Hyperlipidemia, unspecified; I10 Essential (primary) hypertension; Z79.899 Other long term (current) drug therapy
CPT/HCPCS: 36415; 70450; 71045; 72125; 72128; 72131; 80053; 81001; 85025; 87086; 93005; 99284; 99285